=== PATIENT | female | born 1935 | race Caucasian/White ===

== ENCOUNTER → 2020-12-15 | Outpatient (CLI) ==
[2020-12-15 13:17] LABS: BILIRUBIN,URINE NEGATIVE (NEGATIVE); CLARITY,URINE CLEAR; COLOR,URINE YELLOW; GLUCOSE, URINE (UA) NEGATIVE (NEGATIVE); KETONES,URINE NEGATIVE (NEGATIVE); LEUKOCYTE ESTERASE ,URINE TRACE (NEGATIVE); NITRITE,URINE NEGATIVE (NEGATIVE); PROTEIN,URINE NEGATIVE (NEGATIVE)
[2020-12-15 13:26] LABS: BACTERIA,URINE NEGATIVE /HPF; SQUAMOUS EPITHELIAL CELL,UR 0-2 /HPF; WBC,URINE 0-2 /HPF; YEAST,URINE FEW /HPF
== END ==
PROVIDERS: ATTEND Internal Medicine
DX: Z01.89 Encounter for other specified special examinations (principal)
CPT/HCPCS: 81000; 87077; 87088; 87186

== ENCOUNTER 2021-02-15 22:46 | Emergency (ER) | payer MEDICARE ==
[~2021-02-15] VITALS: Ht 157 cm; Wt 102.5 kg
[2021-02-15 23:07] LABS: BASOPHILS % (AUTO) 1 % (0-10); EOSINOPHILS # (AUTO) 0.2 10^3/uL (0.0-0.3); EOSINOPHILS % (AUTO) 3 % (0-10); HEMATOCRIT 30 % (35-52); HEMOGLOBIN 9.5 g/dL (11.5-16.0); LYMPHOCYTES # (AUTO) 4.1 10^3/uL (1.0-4.0); LYMPHOCYTES % (AUTO) 60 % (12-44); MEAN CORPUSCULAR HEMOGLOBIN 34 pg (25-34); MEAN CORPUSCULAR HGB CONC 31 g/dL (32-36); MEAN CORPUSCULAR VOLUME 110 fL (80-99); MEAN PLATELET VOLUME 9.4 fL (9.0-12.2); MONOCYTES # (AUTO) 0.5 10^3/uL (0.0-1.0); MONOCYTES % (AUTO) 7 % (0-12); NEUTROPHILS # (AUTO) 1.9 10^3/uL (1.8-7.8); NEUTROPHILS % (AUTO) 29 % (42-75); PLATELET COUNT 268 10^3/uL (130-400); WHITE BLOOD COUNT 6.7 10^3/uL (4.3-11.0)
[2021-02-15] MEDS ORDERED: fentaNYL INJ 100 MCG/2 ML AMP ONE (23:12)
--- NOTE | 2021-02-15 23:12 | ED Fall/Injury ---
General Stated Complaint: L LEG PAIN Source: patient, EMS Exam Limitations: no limitations (BARB EDWARDS) History of Present Illness Date Seen by Provider: Feb 15, 2021 Time Seen by Provider: 22:45 Initial Comments Pt presents to ED via EMS from [facility] with complaint of L thigh pain. She states that prior to arrival, she was ambulating/closing her blinds, when she felt like someone reached in and broke her L thigh. She was able to lower herself to the floor, denies LOC, denies hitting her head. She was assisted by [facility] staff shortly afterward. She does not take any anti-coagulants. Her pain is 8/10 L mid-thigh, denies radiation. She took a Tylenol3 earlier today for her back pain, and was given Oxycodone 5mg at 2220 by EMS. She had surgery about 2 months ago in November for repair of L distal femur fracture by Dr. Galaviz. Denies chest pain, SOB, N/V, abd pain. Occurred: just prior to arrival Severity: moderate Injuries/Pain Location: lower extremity (L thigh) Context: other (L thigh gave out, nontraumatic ) Loss of Consciousness: no loss of consciousness Modifying Factors: Improves With Pain Medication (Oxycodone at 2220, T3 earlier today) Associated Symptoms (Fall): No Abdominal Pain, No Chest Pain, No Lightheadedness, No Nausea/Vomiting, No Shortness of Air; Trouble Walking; No Vision Changes (BARB EDWARDS STUDENT) Allergies and Home Medications Allergies Coded Allergies: No Known Drug Allergies (Unverified , 02/15/21) Patient Home Medication List Home Medication List Reviewed: Yes (BARB EDWARDS) Review of Systems Review of Systems Constitutional: No chills, No dizziness, No fever Eyes: Denies Blurred Vision, Denies Drainage, Denies Pain Ears, Nose, Mouth, Throat: denies ear pain, denies epistaxis, denies mouth pain Respiratory: No cough, No short of breath Cardiovascular: No chest pain; edema (moderate edema LLE); No palpitations Gastrointestinal: No abdominal pain, No constipation, No diarrhea Genitourinary: No decreased output, No dysuria, No frequency, No hematuria Musculoskeletal: back pain; No joint pain; muscle pain (L mid thigh) Skin: No change in color, No change in hair/nails; lesions (multiple facial sores r/t picking) Psychiatric/Neurological: Denies Headache, Denies Numbness, Denies Paresthesia (BARB EDWARDS STUDENT) All Other Systems Reviewed Negative Unless Noted: Yes (BARB EDWARDS) Physical Exam Vital Signs Vital Signs - First Documented 02/15/21 02/16/21 22:46 01:21 Temp 36.8 Pulse 91 Resp 18 B/P (MAP) 198/121 (146) Pulse Ox 94 O2 Delivery Room Air O2 Flow Rate 3.00 (DENNIS ROSALES) Vital Signs Capillary Refill : (BARB EDWARDS STUDENT) Height, Weight, BMI Height: '" Weight: lbs. oz. kg; BMI Method: General Appearance: mild distress, obese HEENT: PERRL/EOMI, normal ENT inspection, pharynx normal (dry mucosa) Neck: non-tender, full range of motion, supple, normal inspection Cardiovascular: normal peripheral pulses, regular rate, rhythm, no murmur Respiratory: chest non-tender, lungs clear, normal breath sounds, no respiratory distress, no accessory muscle use Peripheral Pulses: 2+ Dorsalis Pedis (R), 2+ Left Dors-Pedis (L), 2+ Radial Pulses (R), 2+ Radial Pulses (L) Gastrointestinal: normal bowel sounds, non tender, soft Rectal: deferred Back: normal inspection, no CVA tenderness, no vertebral tenderness Extremities: other (LLE tender to palpation mid-thigh, moderate swelling/mass to L mid-thigh, moderate swelling to LLE>RLE, pulses +2/4 BLE, sensation intact/equal BLE, motor strength 3/5 BLE) Neurologic/Psychiatric: no motor/sensory deficits, alert, normal mood/affect, oriented x 3 Skin: warm/dry, other (multiple open sores/ulcerations around face) Lymphatic: no adenopathy (BARB EDWARDS STUDENT) [place] Coma Score Best Eye Response: (4) Open Spontaneously Best Verbal Response: (5) Oriented Best Motor Response: (6) Obeys Commands (BARB EDWARDS STUDENT) Progress/Results/Core Measures Results/Orders Lab Results Laboratory Tests Test 02/15/21 23:03 Range/Units White Blood Count 6.7 4.3-11.0 10^3/uL Red Blood Count 2.76 L 3.80-5.11 10^6/uL Hemoglobin 9.5 L 11.5-16.0 g/dL Hematocrit 30 L 35-52 % Mean Corpuscular Volume 110 H 80-99 fL Mean Corpuscular Hemoglobin 34 25-34 pg Mean Corpuscular Hemoglobin Concent 31 L 32-36 g/dL Red Cell Distribution Width 16.6 H 10.0-14.5 % Platelet Count 268 130-400 10^3/uL Mean Platelet Volume 9.4 9.0-12.2 fL Immature Granulocyte % (Auto) 0 % Neutrophils (%) (Auto) 29 L 42-75 % Lymphocytes (%) (Auto) 60 H 12-44 % Monocytes (%) (Auto) 7 0-12 % Eosinophils (%) (Auto) 3 0-10 % Basophils (%) (Auto) 1 0-10 % Neutrophils # (Auto) 1.9 1.8-7.8 10^3/uL Lymphocytes # (Auto) 4.1 H 1.0-4.0 10^3/uL Monocytes # (Auto) 0.5 0.0-1.0 10^3/uL Eosinophils # (Auto) 0.2 0.0-0.3 10^3/uL Basophils # (Auto) 0.0 0.0-0.1 10^3/uL Immature Granulocyte # (Auto) 0.0 0.0-0.1 10^3/uL Sodium Level 136 135-145 MMOL/L Potassium Level 4.5 3.6-5.0 MMOL/L Chloride Level 105 98-107 MMOL/L Carbon Dioxide Level 22 21-32 MMOL/L Anion Gap 9 5-14 MMOL/L Blood Urea Nitrogen 17 7-18 MG/DL Creatinine 1.02 0.60-1.30 MG/DL Estimat Glomerular Filtration Rate 52 BUN/Creatinine Ratio 17 Glucose Level 103 70-105 MG/DL Calcium Level 9.0 8.5-10.1 MG/DL Corrected Calcium 9.4 8.5-10.1 MG/DL Total Bilirubin 0.2 0.1-1.0 MG/DL Aspartate Amino Transf (AST/SGOT) 17 5-34 U/L Alanine Aminotransferase (ALT/SGPT) 16 0-55 U/L Alkaline Phosphatase 182 H 40-136 U/L Total Protein 8.1 6.4-8.2 GM/DL Albumin 3.5 3.2-4.5 GM/DL (DENNIS ROSALES) My Orders Orders - DENNIS ROSALES Chest 1 View, Ap/Pa Only (02/15/21 23:01) Femur, Left, 2 Views (02/15/21 23:01) Cbc With Automated Diff (02/15/21 23:01) Comprehensive Metabolic Panel (02/15/21 23:01) Catheter(Urinary) Insert & Ass 03,15 (02/15/21 23:01) Ekg Tracing (02/15/21:01) Continuous Ekg Monitoring (02/15/21:) Fentanyl Inj (Sublimaze Injection) (02/15/21 23:15) Fentanyl Inj (Sublimaze Injection) (02/15/21 23:12) Lactated Ringers (Lr 1000 Ml Iv Solution (02/16/21 00:07) Fentanyl Inj (Sublimaze Injection) (02/16/21 00:15) Lactated Ringers (Lr 1000 Ml Iv Solution (02/16/21 00:19) Ketamine Syringe (Ketamine Syringe) (02/16/21 00:27) Ns (Ivpb) (Sodium Chloride 0.9% Ivpb Bag (02/16/21 00:27) Ketamine Syringe (Ketamine Syringe) (02/16/21 00:45) Catheter(Urinary) Insert & Ass (02/16/21 03:47) (DENNIS ROSALES) Medications Given in ED (DENNIS ROSALES) Vital Signs/I&O 02/15/21 02/16/21 22:46 01:21 Temp 36.8 36.8 Pulse 91 81 Resp 18 18 B/P (MAP) 198/121 (146) 129/101 (146) Pulse Ox 94 96 O2 Delivery Room Air Nasal Cannula O2 Flow Rate 3.00 (DENNIS ROSALES) Progress Progress Note #1: Time: 23:34 Progress Note I attest that I saw this patient alongside the medical student and agree with his documented history, physical exam and review of systems except as otherwise noted. Plain film of the left femur. Chest x-ray EKG and labs for preop. Suspect she has a fracture of her left femur shaft reaggravated. Because she did not strike her head and states she lowered herself to the floor we will not scan her head and neck. She is not on blood thinners. 50 mcg of fentanyl. Progress Note #2: Time: 00:36 Progress Note Placing Fields catheter in the splint. Patient's oxygen saturations were 90% after the 75 mcg of fentanyl but her pain is not adequately controlled so we are going to give her 25 mg of ketamine and 100 cc of fluids slowly over the next 15 to 30 minutes and see if we can control her pain better between that and the splint. (DENNIS ROSALES) Initial ECG Impression Date: Feb 15, 2021 Initial ECG Impression Time: 23:29 Initial ECG Rate: 77 Initial ECG Rhythm: Normal Sinus Initial ECG Intervals: QT (486) Initial ECG Impression: Nonspecific Changes Initial ECG Comparisson: No Previous ECG Available Comment Left bundle branch block. No clinically relevant ST changes (DENNIS ROSALES) Diagnostic Imaging Diagonstic Imaging: Xray Plain Films/CT/US/NM/MRI: chest Comments Wide heart and mediastinum but no acute pulmonary process. [facility] [place] NAME: LUCRECIA ROBERT [facility] REC#: [id number] PT STATUS: DEP ER : 1935 PHYSICIAN: DENNIS ROSALES MD ADMIT DATE: 02/15/21/ER Signed Date of Exam:02/15/21 CHEST 1 VIEW, AP/PA ONLY INDICATION: Fall and femoral fracture. Single AP view of the chest is obtained. There is no previous study for comparison. Heart size and pulmonary vascularity are at the upper limits of normal. There is air trapping in the lungs bilaterally. Prominent interstitial markings may reflect chronic scarring. There are advanced degenerative changes in the shoulders as well as cervical spine. IMPRESSION: Probable background COPD without acute abnormality seen in the chest. Dictated by: Dictated on workstation # [id number] Dict: 02/16/21 0013 Trans: 02/16/21900 LIBBY [id number] Interpreted by: THOMAS SANCHEZ MD Electronically signed by: THOMAS SANCHEZ MD 02/16/21900 Reviewed: Reviewed by Me Diagonstic Imaging: Xray Plain Films/CT/US/NM/MRI: femur (Left) Comments Acute midshaft fracture involving hardware, displaced, closed [facility] [place] NAME: LUCRECIA ROBERT [facility] REC#: [id number] PT STATUS: DEP ER : 1935 PHYSICIAN: DENNIS ROSALES MD ADMIT DATE: 02/15/21/ER Signed Date of Exam:02/15/21 FEMUR, LEFT, 2 VIEWS INDICATION: Fall with left femur injury AP and lateral views of the left femur are obtained. There is transverse fracture through the midshaft of the left femur. There is significant overriding of fracture fragments. Extensive surgical hardware seen in the distal left femur and at the level of the knee. Hip joint appears to be intact. IMPRESSION: Overriding midshaft femoral fracture. Dictated by: Dictated on workstation # [id number] Dict: 02/16/212 Trans: 02/16/21 [facility] [id number] Interpreted by: THOMAS SANCHEZ MD Electronically signed by: THOMAS SANCHEZ MD 02/16/21900 Reviewed: Reviewed by Me (DENNIS ROSALES) Departure Impression Primary Impression: Fracture of femoral shaft, left, closed Qualified Codes: S72.392S - Other fracture of shaft of left femur, sequela Disposition: XF [facility]-TRM HOSP Condition: Stable Transfer Transfer Reason: Exceeds level of care (No orthopedic surgeon websphere consultant until next week) Time Spoke to Accepting Phy: 00:25 Transfer Progress Notes Discussed the case with Dr. Galaviz at [facility] and he agrees to take the patient on. He will work with the triage team and have them call us back. Discussed the case with Dr. Montesinos, emergency room at [facility] and he agrees to accept the patient in transfer. Transfer Time: 01:23 Transfer Facility: [place], [place] Method of Transfer: EMS (DENNIS ROSALES) Departure-Patient Inst. Referrals: JULIA LLANES MD (PCP) Primary Care Physician BARB EDWARDS STUDENT Feb 15, 2021 23:12 DENNIS ROSALES Feb 15, 2021 23:37
[2021-02-15] MEDS ORDERED: fentaNYL INJ 100 MCG/2 ML AMP IVP ONE (23:15)
[2021-02-15 23:18] LABS: ALBUMIN 3.5 GM/DL (3.2-4.5); POTASSIUM 4.5 MMOL/L (3.6-5.0)
[2021-02-15 23:21] LABS: TOTAL PROTEIN 8.1 GM/DL (6.4-8.2)
[2021-02-15 23:23] LABS: BILIRUBIN,TOTAL 0.2 MG/DL (0.1-1.0)
[2021-02-15 23:24] LABS: CREATININE SERUM 1.02 MG/DL (0.60-1.30)
[2021-02-16] MEDS ORDERED: LACTATED RINGERS 1,000 ML IV STA (00:07)
[2021-02-16] MEDS ORDERED: fentaNYL INJ 100 MCG/2 ML AMP IVP ONE (00:15)
[2021-02-16] MEDS ORDERED: LACTATED RINGERS 0 ML IV ONE (00:19)
[2021-02-16] MEDS ORDERED: KETAMINE SYRINGE 50 MG/5 ML SYRINGE ONE (00:27)
[2021-02-16] MEDS ORDERED: NS (IVPB) 100 ML ONE (00:27)
--- NOTE | 2021-02-16 00:39 | Diagnostic Imaging Report ---
INDICATION: Fall and femoral fracture. Single AP view of the chest is obtained. There is no previous study for comparison. Heart size and pulmonary vascularity are at the upper limits of normal. There is air trapping in the lungs bilaterally. Prominent interstitial markings may reflect chronic scarring. There are advanced degenerative changes in the shoulders as well as cervical spine. IMPRESSION: Probable background COPD without acute abnormality seen in the chest. Dictated by: Dictated on workstation # [id number]
--- NOTE | 2021-02-16 00:39 | Diagnostic Imaging Report ---
INDICATION: Fall with left femur injury AP and lateral views of the left femur are obtained. There is transverse fracture through the midshaft of the left femur. There is significant overriding of fracture fragments. Extensive surgical hardware seen in the distal left femur and at the level of the knee. Hip joint appears to be intact. IMPRESSION: Overriding midshaft femoral fracture. Dictated by: Dictated on workstation # [id number]
[2021-02-16] MEDS ORDERED: KETAMINE SYRINGE 50 MG/5 ML SYRINGE IV ONE (00:45)
[2021-02-16 01:21] VITALS: BP 129/101
== END 2021-02-16 01:22 | disposition short-term general hospital (02) ==
LOC: EDUNIT# 22:46 → ER 22:53
DX: S72.392A Other fracture of shaft of left femur, initial encounter for closed fracture (principal); E66.9 Obesity, unspecified; X58.XXXA Exposure to other specified factors, initial encounter
CPT/HCPCS: 27232; 29505; 36415; 51702; 71045; 73552; 80053; 85025; 93005; 96374; 96375; 96376

== ENCOUNTER → 2021-04-05 | Outpatient (CLI) | payer MEDICARE ==
[~2021-04-05] MED LIST: CATHETER FLUSH 10 ML SYR IV PRN; HOLD METFORMIN - RECEIVED CONTRAST 20 ML VIAL IV SCH; IOHEXOL 350 MG/ML 100 ML (OMNIPAQUE 350) VIAL IV ONE; NS 100 ML (IVPB) BAG IV ONE
--- NOTE | 2021-04-05 12:18 | Diagnostic Imaging Report ---
PROCEDURE: US left lower extremity venous. TECHNIQUE: Multiple real-time grayscale images were obtained over the left lower extremity in various projections. Additional duplex Doppler and color Doppler images were also obtained. INDICATION: Left lower extremity swelling and pain. COMPARISON: None. FINDINGS: Visualized deep and superficial venous system is patent. There is no DVT. IMPRESSION: Negative left lower extremity venous Doppler. Dictated by: Dictated on workstation # [id number]
--- NOTE | 2021-04-05 12:51 | Diagnostic Imaging Report ---
PROCEDURE: CT angiography of the chest with contrast. TECHNIQUE: Multiple contiguous axial images were obtained through the chest after uneventful bolus administration of intravenous contrast. 3D reconstructed CTA MIP acquisitions were also performed. Auto Exposure Controls were utilized during the CT exam to meet ALARA standards for radiation dose reduction. INDICATION: Chest pain, shortness of breath. COMPARISON: None. FINDINGS: There is slight cardiac enlargement without pericardial effusion. There is no lymphadenopathy. The pulmonary arteries and aorta are grossly normal. No embolism is identified. There is no pulmonary infiltrate. Large hiatal hernia is present. Cholelithiasis without cholecystitis is present. Osseous structures are age appropriate. IMPRESSION: 1. No pulmonary embolism or acute aortic pathology. 2. Hiatal hernia. 3. Cholelithiasis. 4. No pulmonary infiltrates. Dictated by: Dictated on workstation # [id number]
== END ==
LOC: RAD 10:45
PROVIDERS: ATTEND Nurse Practitioner Family
DX: K44.9 Diaphragmatic hernia without obstruction or gangrene (principal); K80.20 Calculus of gallbladder without cholecystitis without obstruction; M79.605 Pain in left leg; M79.89 Other specified soft tissue disorders; D64.9 Anemia, unspecified; R79.1 Abnormal coagulation profile
CPT/HCPCS: 71275

== ENCOUNTER → 2021-05-13 | Outpatient (CLI) | payer MEDICARE ==
--- NOTE | 2021-05-13 17:07 | Diagnostic Imaging Report ---
INDICATION: Elevated D-dimer, left-sided pelvic pain, recent femoral fracture and surgical repair. 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 The bilateral common femorals and superficial femoral arteries are patent. Portions of the popliteals are obscured by artifact from the hardware. Below that level they were patent. No aneurysm or pseudoaneurysm. No vascular contrast extravasation. The bilateral common and external iliacs are patent. The lower abdominal aorta is patent. There is no pelvic intra or extraperitoneal hemorrhage. The femoral heads directed into the acetabula. 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 IMPRESSION: No evidence for pelvic or thigh arterial injury. No contrast extravasation. No pelvic intra or extraperitoneal hemorrhage. Dictated by: Dictated on workstation # [id number]
== END ==
LOC: RAD 16:00
PROVIDERS: ATTEND Nurse Practitioner Family
DX: R10.2 Pelvic and perineal pain (principal); S72.92XD Unspecified fracture of left femur, subsequent encounter for closed fracture with routine healing; R79.1 Abnormal coagulation profile; X58.XXXD Exposure to other specified factors, subsequent encounter
CPT/HCPCS: 72191

== ENCOUNTER 2021-12-17 22:10 | Inpatient (IN) | payer MEDICARE ==
[~2021-12-17] VITALS: Ht 154 cm; Wt 121.6 kg
[2021-12-17] MEDS ORDERED: RT-ALBUTEROL SULF 2.5 MG/3 ML PRE-MIX VIAL ONE (22:59)
--- NOTE | 2021-12-17 23:07 | ED Respiratory ---
General Chief Complaint: Respiratory Problems Stated Complaint: FALL History of Present Illness Date Seen by Provider: Dec 17, 2021 Time Seen by Provider: 22:45 Initial Comments Patient is an 86-year-old female who presents to the emergency department today with a chief complaint of altered mental status after fall. Patient lives at [facility] across the street. She is normally up and ambulatory with a walker. She was talking to one of the caregivers and 30 minutes later she was found on the floor. Caregivers at [facility] reports that she was speaking "word salad" and not oriented after her fall. She is not on any blood thinners. She does not have any obvious outward external trauma to her head. On arrival she is very short of breath and wheezy. She is febrile. She is able to state that she is in the hospital and she asks for a rest break. Her speech is clear although she is in moderate respiratory distress. Sats are around 90%. She was placed on BiPAP and had almost immediate improvement in her work of breathing. She does not really answer HPI, review of systems past medical family or social history. This is limited secondary to clinical condition and likely some dementia. Timing/Duration: just prior to arrival Severity: moderate Associated Symptoms: shortness of breath Allergies and Home Medications Allergies Coded Allergies: Penicillins (Verified Allergy, Unknown, 12/18/21) Patient Home Medication List Home Medication List Reviewed: Yes Acetaminophen (Tylenol Extra Strength) 500 Mg Tablet, 500 MG PO 0600,1000,1400,1800, (Reported) Entered as Reported by: TRACI MONTES on 12/18/211113 Last Action: Held Amitriptyline HCl (Amitriptyline HCl) 100 Mg Tablet, 100 MG PO 1700, (Reported) Entered as Reported by: TRACI MONTES on 12/18/211113 Last Action: Converted Ascorbate Calcium (Vitamin C) 500 Mg Tablet, 500 MG PO DAILY, (Reported) Entered as Reported by: TRACI MONTES on 12/18/211113 Last Action: Held Buspirone HCl (Buspirone HCl) 5 Mg Tablet, 5 MG PO TID, (Reported) Entered as Reported by: TRACI MONTES on 12/18/211113 Last Action: Continued Calcium Carbonate/Vitamin D3 (Calcium 600 + Vit D 400 Tablet) 600 Mg Calcium-10 Mcg (400 Unit) Tablet, 1 EACH PO DAILY, (Reported) Entered as Reported by: TRACI MONTES on 12/18/211113 Last Action: Reviewed Cholecalciferol (Vitamin D3) (Vitamin D3) 125 Mcg (5000 Unit) Capsule, 125 MCG PO DAILY, (Reported) Entered as Reported by: TRACI MONTES on 12/18/211113 Last Action: Held Cyclobenzaprine HCl (Cyclobenzaprine HCl) 10 Mg Tablet, 10 MG PO 0800,1700, (Reported) Entered as Reported by: TRACI MONTES on 12/18/211113 Last Action: Continued Docusate Sodium (Docusate Sodium) 100 Mg Capsule, 100 MG PO BID, (Reported) Entered as Reported by: TRACI MONTES on 12/18/211113 Last Action: Continued Docusate Sodium (Docusate Sodium) 100 Mg Capsule, 100 MG PO Q12H PRN for CONSTIPATION-1ST LINE, (Reported) Entered as Reported by: TRACI MONTES on 12/18/211113 Last Action: Continued Donepezil HCl (Donepezil HCl) 10 Mg Tablet, 10 MG PO 1700, (Reported) Entered as Reported by: TRACI MONTES on 12/18/211113 Last Action: Continued Duloxetine HCl (Duloxetine HCl) 60 Mg Capsule.dr, 60 MG PO DAILY, (Reported) Entered as Reported by: TRACI MONTES on 12/18/211113 Last Action: Converted Furosemide (Furosemide) 20 Mg Tablet, 20 MG PO DAILY, (Reported) Entered as Reported by: TRACI MONTES on 12/18/211113 Last Action: Continued Gabapentin (Neurontin) 300 Mg Capsule, 300 MG PO 0800,1700, (Reported) Entered as Reported by: TRACI MONTES on 12/18/211113 Last Action: Continued Lidocaine (Lidocaine 5% Patch) 5 % Adh..patch, 1 EACH TP Q12H PRN for LOWER BACK PAIN, (Reported) Entered as Reported by: TRACI MONTES on 12/18/211113 Last Action: Continued Lisinopril (Lisinopril) 20 Mg Tablet, 20 MG PO DAILY, (Reported) Entered as Reported by: TRACI MONTES on 12/18/211113 Last Action: Held Magnesium Hydroxide (Milk of Magnesia) 2,400 Mg/10 Ml Oral.susp, 30 ML PO DAILY PRN for CONSTIPATION-7TH LINE, (Reported) Entered as Reported by: TRACI MONTES on 12/18/211113 Last Action: Held Magnesium Oxide (Magnesium) 400 Mg Magnesium Tablet, 400 MG PO DAILY, (Reported) Entered as Reported by: TRACI MONTES on 12/18/211113 Last Action: Held Meloxicam (Meloxicam) 15 Mg Tablet, 15 MG PO DAILY, (Reported) Entered as Reported by: TRACI MONTES on 12/18/211113 Last Action: Held Menthol (Biofreeze) 4 % Gel..ml., 1 APPLIC TP Q6H PRN for MUSCLE PAIN, (Reported) Entered as Reported by: TRACI MONTES on 12/18/211113 Last Action: Held Multivitamin with Minerals (One Daily Plus Minerals) 1 Each Tablet, 1 EACH PO DAILY, (Reported) Entered as Reported by: TRACI MONTES on 12/18/211113 Last Action: Held Oxycodone HCl (Oxycodone HCl) 5 Mg Tablet, 5 MG PO Q6H PRN for PAIN-SEVERE (8- 10), (Reported) Entered as Reported by: TRACI MONTES on 12/18/211113 Last Action: Continued Pantoprazole Sodium (Pantoprazole Sodium) 40 Mg Tablet.dr, 40 MG PO DAILY, (Reported) Entered as Reported by: TRACI MONTES on 12/18/211113 Last Action: Continued Potassium Chloride (Klor-Con 8) 8 Meq Tablet.er, 8 MEQ PO DAILY, (Reported) Entered as Reported by: TRACI MONTES on 12/18/211113 Last Action: Held Pramipexole Di-HCl (Pramipexole Dihydrochloride) 0.5 Mg Tablet, 0.5 MG PO 1700, (Reported) Entered as Reported by: TRACI MONTES on 12/18/211113 Last Action: Continued Propranolol HCl (Propranolol HCl) 20 Mg Tablet, 20 MG PO BID, (Reported) Entered as Reported by: TRACI MONTES on 12/18/211113 Last Action: Held Review of Systems Review of Systems Constitutional: see HPI, fever, malaise, weakness Respiratory: short of breath Review of systems difficult secondary to patient's altered mental status/respiratory distress Physical Exam Vital Signs - First Documented 12/17/21 12/17/21 22:10 23:02 Temp 38.2 Pulse 112 Resp 22 B/P (MAP) 164/124 (137) Pulse Ox 100 O2 Delivery Non Rebreather O2 Flow Rate 10.00 FiO2 40 Capillary Refill : Height: '" Weight: lbs. oz. kg; 41.00 BMI Method: General Appearance: WD/WN, moderate distress Eyes: Bilateral Eye Normal Inspection, Bilateral Eye PERRL, Bilateral Eye EOMI HEENT: PERRL/EOMI Neck: normal inspection Respiratory: decreased breath sounds (bases and left greater than right), accessory muscle use, wheezing Cardiovascular: regular rate, rhythm, bradycardia Gastrointestinal: normal bowel sounds, non tender, soft Extremities: normal range of motion, normal inspection Neurologic/Psychiatric: alert Skin: normal color, warm/dry Focused Exam Lactate Level 12/17/21 23:00: Lactic Acid Level 1.35 Time of Focused Exam: 01:00 Respiratory: No Accessory Muscle Use, No Respiratory Distress Cardiovascular: Regular Rate, Rhythm (90's), Normal Peripheral Pulses Capillary Refill: Less Than 3 Seconds Peripheral Pulses: 1+ Radial Pulses (R), 1+ Radial Pulses (L) Skin: normal color, warm/dry Lactic Acid Level Laboratory Tests Test 12/17/21 23:00 Lactic Acid Level 1.35 MMOL/L (0.50-2.00) Within 3hrs of presentation: Admin fluids, Blood cultures prior to ABX's, Focus exam, Lactate level Procedures/Interventions Lumen: triple Central Line Procedure: betadine prep, sterile drapes applied, sterile dressing applied Position: internal jugular (R) Anesthesia: Lidocaine Volume Anesthetic (ccs): 4 Complications: hematoma at site Post Position: sutured, good blood return, position confirmed w/ CXR Progress/Results/Core Measures Suspected Sepsis SIRS Temperature: Pulse: Respiratory Rate: Blood Pressure / Mean: 12/17/21 23:00: Lactic Acid Level 1.35 Laboratory Tests 12/17/21 23:00: INR Comment 1.1 Results/Orders Lab Results Laboratory Tests Test 12/17/21 23:00 12/17/21 23:22 12/17/21 23:30 12/17/21 23:44 Range/Units White Blood Count 11.1 H 4.3-11.0 10^3/uL Red Blood Count 3.05 L 3.80-5.11 10^6/uL Hemoglobin 10.7 L 11.5-16.0 g/dL Hematocrit 33 L 35-52 % Mean Corpuscular Volume 109 H 80-99 fL Mean Corpuscular Hemoglobin 35 H 25-34 pg Mean Corpuscular Hemoglobin Concent 32 32-36 g/dL Red Cell Distribution Width 15.1 H 10.0-14.5 % Platelet Count 290 130-400 10^3/uL Mean Platelet Volume 9.4 9.0-12.2 fL Immature Granulocyte % (Auto) 1 % Neutrophils (%) (Auto) 70 42-75 % Lymphocytes (%) (Auto) 23 12-44 % Monocytes (%) (Auto) 4 0-12 % Eosinophils (%) (Auto) 1 0-10 % Basophils (%) (Auto) 1 0-10 % Neutrophils # (Auto) 7.8 1.8-7.8 10^3/uL Lymphocytes # (Auto) 2.6 1.0-4.0 10^3/uL Monocytes # (Auto) 0.5 0.0-1.0 10^3/uL Eosinophils # (Auto) 0.2 0.0-0.3 10^3/uL Basophils # (Auto) 0.1 0.0-0.1 10^3/uL Immature Granulocyte # (Auto) 0.1 0.0-0.1 10^3/uL Prothrombin Time 14.1 12.2-14.7 SEC INR Comment 1.1 0.8-1.4 Activated Partial Thromboplast Time 27 24-35 SEC Sodium Level 133 L 135-145 MMOL/L Potassium Level 5.0 3.6-5.0 MMOL/L Chloride Level 98 98-107 MMOL/L Carbon Dioxide Level 25 21-32 MMOL/L Anion Gap 10 5-14 MMOL/L Blood Urea Nitrogen 22 H 7-18 MG/DL Creatinine 1.34 H 0.60-1.30 MG/DL Estimat Glomerular Filtration Rate 39 BUN/Creatinine Ratio 16 Glucose Level 120 H 70-105 MG/DL Lactic Acid Level 1.35 0.50-2.00 MMOL/L Calcium Level 9.1 8.5-10.1 MG/DL Corrected Calcium 9.3 8.5-10.1 MG/DL Total Bilirubin 0.3 0.1-1.0 MG/DL Aspartate Amino Transf (AST/SGOT) 24 5-34 U/L Alanine Aminotransferase (ALT/SGPT) 13 0-55 U/L Alkaline Phosphatase 213 H 40-136 U/L B-Type Natriuretic Peptide 252.5 H <100.0 PG/ML Total Protein 9.2 H 6.4-8.2 GM/DL Albumin 3.8 3.2-4.5 GM/DL Blood Gas Puncture Site LEFT RADIAL Blood Gas Patient Temperature 38.2 Arterial Blood pH 7.35 L 7.37-7.43 Arterial Blood Partial Pressure CO2 52 H 35-45 MMHG Arterial Blood Partial Pressure O2 48 L 79-93 MMHG Arterial Blood HCO3 27 23-27 MMOL/L Arterial Blood Total CO2 28.5 21.0-31.0 MMOL/L Arterial Blood Oxygen Saturation 69 L 94-100 % Arterial Blood Base Excess 2.2 -2.5-2.5 MMOL/L Diony Test YES-POS Blood Gas Ventilator Setting NO Blood Gas Inspired Oxygen 40% Urine Color YELLOW Urine Clarity CLEAR Urine pH 6.5 5-9 Urine Specific Jasper 1.015 L 1.016-1.022 Urine Protein TRACE H NEGATIVE Urine Glucose (UA) NEGATIVE NEGATIVE Urine Ketones NEGATIVE NEGATIVE Urine Nitrite NEGATIVE NEGATIVE Urine Bilirubin NEGATIVE NEGATIVE Urine Urobilinogen 0.2 < = 1.0 MG/DL Urine Leukocyte Esterase NEGATIVE NEGATIVE Urine RBC (Auto) NEGATIVE NEGATIVE Urine RBC RARE /HPF Urine WBC NONE /HPF Urine Squamous Epithelial Cells 2-5 /HPF Urine Crystals NONE /LPF Urine Bacteria NEGATIVE /HPF Urine Casts NONE /LPF Urine Mucus NEGATIVE /LPF Urine Culture Indicated CULTURE PENDING SARS-CoV-2 RNA (RT-PCR) Not Detected Not Detecte Micro Results Microbiology 12/17/21 Urine Culture - Final, Complete Gram Pos Mixed Bacterial Gillian 12/17/21 Blood Culture - Preliminary, Resulted No growth 12/17/21 Blood Culture - Preliminary, Resulted No growth My Orders Orders - ELIJAH SHANKS MD Albuterol Pre-Mix Nebs (Rt) (Proventil (12/17/21 22:59) Cbc With Automated Diff (12/17/21 23:03) Comprehensive Metabolic Panel (12/17/21 23:03) Blood Culture (12/17/21 23:03) Sputum Culture (12/17/21 23:03) Urinalysis (12/17/21 23:03) Urine Culture (12/17/21 23:03) Protime With Inr (12/17/21 23:03) Partial Thromboplastin Time (12/17/21 23:03) Chest 1 View, Ap/Pa Only (12/17/21 23:03) Acetaminophen Tablet (Tylenol Tablet) (12/17/21 23:15) Ed Iv/Invasive Line Start (12/17/21 23:03) Ed Iv/Invasive Line Start (12/17/21 23:03) Vital Signs Adult Sepsis Patie Q15M (12/17/21 23:03) O2 (12/17/21 23:03) Remove Rings In Anticipation O (12/17/21:03) Lactic Acid Analyzer (12/17/21 23:03) Bnp Major (12/17/21 23:03) Ekg Tracing (12/17/21 23:03) Covid 19 Inhouse Test (12/17/21 23:04) Isolation Central Supply Req (12/17/21 23:04) Ns Iv 1000 Ml (Sodium Chloride 0.9%) (12/17/21 23:15) Albuterol Pre-Mix Nebs (Rt) (Proventil (12/17/21 23:15) Svn Small Volume Nebulizer (12/17/21 23:07) Acetaminophen Suppository (Tylenol Suppo (12/17/21 23:15) Arterial Blood Gas (12/17/21 23:24) Fields Cath (12/17/21 23:25) Pelvis With Right Hip 2-3views (12/17/21 23:39) Ct Head Wo (12/17/21 23:39) Furosemide Injection (Lasix Injection) (12/18/21 01:15) Cefepime Injection (Maxipime Injection) (12/18/21 01:45) Medications Given in ED Vital Signs/I&O 12/17/21 12/17/21 12/17/21 12/17/21 22:10 22:40 23:02 23:14 Temp 38.2 38.2 Pulse 112 111 Resp 22 30 B/P (MAP) 164/124 (137) Pulse Ox 100 97 93 O2 Delivery Non Rebreather NIV Bilevel O2 Flow Rate 10.00 50.00 FiO2 40 12/17/21 12/18/21 23:49 00:53 Temp 36.2 Pulse 90 B/P (MAP) 120/66 Pulse Ox 99 O2 Delivery Non Rebreather NIV Bilevel O2 Flow Rate 10.00 40.00 Capillary Refill : Progress Note #1: Time: 01:52 Progress Note Patient's heart rate is down with fluids and respiratory support. Labs have been reviewed and are at baseline really not overly concerning. Her lactic acid is less than 2. Her blood pressure has remained stable. She is breathing comfortably on the BiPAP. I am starting her on some cefepime for fever of unknown origin. She has defervesced after the rectal Tylenol. I discussed the case with Dr. Mireles. Patient is a DNR. Progress Note #2: Time: 02:33 Progress Note Patient's blood pressure has trended down - now at 79/50. Will fluid bolus her. granddaughter is in the room and tells me the lasix is a new medication for her in the last week - no h/o CHF in the past. Big swollen legs recently. Patient is awake and talking. She is complaining of her chronic pain. Due to (now) lower BP - will switch to ICU bed. Patient remains a DNR. Will not pursue aggressive measures. Antibiotics just finished. Progress Note #3: Time: 03:21 Progress Note Blood pressure consistent in the 70s 80s. I spoke with the granddaughter who talked to her aunt who is [facility]'s power of chargeback specialist. They wish to pursue pressors at this time until they can get family together and make further decisions on treatment. I have consulted eICU and made them aware of the admission to the ICU. ECG Initial ECG Impression Date: Dec 18, 2021 Initial ECG Impression Time: 23:16 Initial ECG Rate: 95 Initial ECG Rhythm: Normal Sinus Comment Left bundle branch block -pre-existing RI interval 148 QRS 190 QTc 452 No ectopy, no ST segment elevation or depression noted Diagnostic Imaging Diagonstic Imaging: Xray Plain Films/CT/US/NM/MRI: chest Comments Chest x-ray interpreted by me, some increased pulmonary vascularity no obvious patchy infiltrate on my evaluation Diagonstic Imaging: CT Plain Films/CT/US/NM/MRI: head Comments per Stat rad : nothing acute Critical Care Note Critical Care Start Time: 22:45 Stop Time: 02:35 Total Time (minutes) 1 hour critical care time in the evaluation and management of this patient in respiratory distress. Time includes initial evaluation, supplemental oxygen with BiPAP. Review and interpretation of medical record; review and interpretation of labs, imaging, multiple reassessments. Discussion with admitting provider as well as family members. Departure Communication (Admissions) Time/Spoke to Admitting Phy: 01:[address] Mireles Time/Spoke to Consulting Phy: 03:22 discussed with eICU Impression Primary Impression: Acute respiratory failure Qualified Codes: J96.00 - Acute respiratory failure, unspecified whether with hypoxia or hypercapnia Additional Impression: Sepsis Qualified Codes: A41.9 - Sepsis, unspecified organism; R65.20 - Severe sepsis without septic shock; J96.01 - Acute respiratory failure with hypoxia Disposition: ADMITTED INPATIENT Condition: Critical Admissions Decision to Admit Reason: Admit from ER (General) Decision to Admit/Date: Dec 18, 2021 Time/Decision to Admit Time: 01:52 Departure-Patient Inst. Referrals: JULIA LLANES MD (PCP/Family) Primary Care Physician ELIJAH SHANKS MD Dec 17, 2021 23:07
[2021-12-17 23:14] LABS: BASOPHILS # (AUTO) 0.1 10^3/uL (0.0-0.1); BASOPHILS % (AUTO) 1 % (0-10); EOSINOPHILS # (AUTO) 0.2 10^3/uL (0.0-0.3); EOSINOPHILS % (AUTO) 1 % (0-10); HEMATOCRIT 33 % (35-52); HEMOGLOBIN 10.7 g/dL (11.5-16.0); LYMPHOCYTES # (AUTO) 2.6 10^3/uL (1.0-4.0); LYMPHOCYTES % (AUTO) 23 % (12-44); MEAN CORPUSCULAR HEMOGLOBIN 35 pg (25-34); MEAN CORPUSCULAR HGB CONC 32 g/dL (32-36); MEAN CORPUSCULAR VOLUME 109 fL (80-99); MEAN PLATELET VOLUME 9.4 fL (9.0-12.2); MONOCYTES # (AUTO) 0.5 10^3/uL (0.0-1.0); MONOCYTES % (AUTO) 4 % (0-12); NEUTROPHILS # (AUTO) 7.8 10^3/uL (1.8-7.8); NEUTROPHILS % (AUTO) 70 % (42-75); PLATELET COUNT 290 10^3/uL (130-400); WHITE BLOOD COUNT 11.1 10^3/uL (4.3-11.0)
[2021-12-17] MEDS ORDERED: ACETAMINOPHEN 500 MG TAB (TYLENOL) PO PRN (23:15)
[2021-12-17] MEDS ORDERED: RT-ALBUTEROL SULF 2.5 MG/3 ML PRE-MIX VIAL INH ONE (23:15)
[2021-12-17] MEDS ORDERED: NS IV 1000 ML 1,000 ML IV SCH (23:15)
[2021-12-17] MEDS ORDERED: ACETAMINOPHEN 650 MG SUPP (TYLENOL) PR ONE (23:15)
[2021-12-17 23:24] LABS: ALBUMIN 3.8 GM/DL (3.2-4.5)
[2021-12-17 23:26] LABS: CALCIUM 9.1 MG/DL (8.5-10.1); INR 1.1 (0.8-1.4); PROTHROMBIN TIME PATIENT 14.1 SEC (12.2-14.7)
[2021-12-17 23:27] LABS: TOTAL PROTEIN 9.2 GM/DL (6.4-8.2)
[2021-12-17 23:29] LABS: BILIRUBIN,TOTAL 0.3 MG/DL (0.1-1.0)
[2021-12-17 23:29] LABS: ABG BASE EXCESS 2.2 MMOL/L (-2.5-2.5); ABG OXYGEN SATURATION 69 % (94-100); ABG PCO2 52 MMHG (35-45); ABG PH 7.35 (7.37-7.43); ABG PO2 48 MMHG (79-93); ABG TCO2 28.5 MMOL/L (21.0-31.0)
[2021-12-17 23:30] LABS: CREATININE SERUM 1.34 MG/DL (0.60-1.30)
[2021-12-17 23:32] LABS: ALLENS TEST YES-POS; INSPIRED O2 40%; PATIENT TEMP 38.2; VENTILATOR NO
[2021-12-17 23:49] LABS: BILIRUBIN,URINE NEGATIVE (NEGATIVE); CLARITY,URINE CLEAR; COLOR,URINE YELLOW; GLUCOSE, URINE (UA) NEGATIVE (NEGATIVE); KETONES,URINE NEGATIVE (NEGATIVE); LEUKOCYTE ESTERASE ,URINE NEGATIVE (NEGATIVE); NITRITE,URINE NEGATIVE (NEGATIVE); PH,URINE 6.5 (5-9); PROTEIN,URINE TRACE (NEGATIVE)
[2021-12-17 23:55] LABS: BACTERIA,URINE NEGATIVE /HPF; RBC,URINE RARE /HPF
[2021-12-18] MEDS ORDERED: FUROSEMIDE 40 MG/4 ML INJ (LASIX) IVP ONE (01:15)
[2021-12-18] MEDS ORDERED: CEFEPIME INJECTION 1,000 MG in NS (IVPB) 50 ML IV ONE (01:45)
[2021-12-18 02:31] VITALS: BP 90/53
[2021-12-18] MEDS ORDERED: NS IV 500 ML 500 ML IV SCH (02:45)
[2021-12-18] MEDS: NOREPINEPHRINE 8 MG/250 ML 250 ML IV SCH ×3 (04:41→20:12)
[2021-12-18] MEDS ORDERED: ACETAMINOPHEN 650 MG SUPP (TYLENOL) PR PRN (05:30)
[2021-12-18 05:33] VITALS: BP 164/124
[2021-12-18] MEDS ORDERED: RT-ALBUTEROL/IPRATROPIUM 3 ML (DUONEB) VIAL INH PRN (05:45)
[2021-12-18] MEDS: NS IV 1000 ML 1,000 ML IV SCH ×2 (05:51→17:54)
--- NOTE | 2021-12-18 06:00 | Diagnostic Imaging Report ---
PROCEDURE: CT head without contrast. TECHNIQUE: Multiple contiguous axial images were obtained through the brain without the use of intravenous contrast. Auto Exposure Controls were utilized during the CT exam to meet ALARA standards for radiation dose reduction. INDICATION: Altered mental status and fever CT HEAD: CT images of the head were obtained. FINDINGS: Ventricles and sulci are within normal limits for size. There is no intracranial hemorrhage identified. There is no abnormal mass effect or shift of midline structures. IMPRESSION: Unremarkable CT of the head. Dictated by: Dictated on workstation # [id number]
--- NOTE | 2021-12-18 06:08 | Diagnostic Imaging Report ---
INDICATION: Dyspnea. AP view of the chest is obtained with comparison made study of 02/15/2021. FINDINGS: There is continued cardiomegaly. Prominent interstitial markings are again noted with an overall increase in bilateral airspace disease as well. No pneumothorax is seen. There is no definite pleural fluid. There is prominent hiatal hernia. IMPRESSION: Cardiomegaly and pulmonary venous congestion with increasing bilateral pulmonary opacity likely due to pulmonary edema or superimposed pneumonia. Clinical correlation would be useful. Dictated by: Dictated on workstation # [id number]
--- NOTE | 2021-12-18 06:08 | Diagnostic Imaging Report ---
INDICATION: Fall with right hip pain AP view of the pelvis is obtained with coned AP and frog-leg views of right hip. There is marked concentric narrowing of the right hip joint space with associated subchondral sclerosis and cyst formation. There is marginal osteophyte formation. No definite fracture is seen. Surgical findings are present in the lower lumbar region at the proximal left femur. 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 Dictated by: Dictated on workstation # [id number]
--- NOTE | 2021-12-18 07:18 | Diagnostic Imaging Report ---
INDICATION: Central venous catheter placement. Portable AP view of the chest reveals right jugular central venous catheter reaching the upper superior vena cava. There is no pneumothorax. Similar to the x-ray performed earlier in the day there is cardiomegaly and pulmonary venous congestion with bilateral pulmonary opacity which may be due to edema or pneumonitis. IMPRESSION: No evidence of complication related to right jugular central venous catheter placement. Dictated by: Dictated on workstation # [id number]
[2021-12-18] MEDS: RT-ALBUTEROL/IPRATROPIUM 3 ML (DUONEB) VIAL INH SCH ×4 (07:19→18:34)
--- NOTE | 2021-12-18 08:43 | History & Physical-Hospitalist ---
History of Present Illness HPI/Chief Complaint Patient is an 86-year-old female past medical history of hypertension, dementia, neuropathy who presented to the emergency department due to altered mental status after a fall. She is unable to tell me what brought her to the hospital. She was surprised that that she was sick and also seems surprised that she was in the hospital. Per ER note she was talking with the nurse and then 30 minutes later was found down by the staff at her long term. They were concerned that she had "word salad "and decided to bring her in for evaluation. On arrival to the emergency department she was objectively short of breath and was wheezing. She was also found to be febrile. She was placed on BiPAP due to her work of breathing. She was found to have likely pneumonia and was to be admitted to [facility] but after antibiotics became hypotensive and pressors were needed. She was admitted to the ICU. She remains on pressors at this time but reports feeling better and has no complaints. After further discussion though she does endorse a history of hacking cough for the past week. Source: patient Exam Limitations: clinical condition Date Seen 12/18/21 Time Seen by a Provider: 08:00 Attending Physician Julia Llanes MD PCP Admitting Physician: Carrillo Mireles MD Attending Physician: Carrillo Mireles MD Referring Physician Date of Admission Dec 18, 2021 at 01:55 Home Medications & Allergies Home Medications Reviewed patient Home Medication Reconciliation performed by pharmacy medication reconciliations site damage prevention technician and/or nursing. Patients Allergies have been reviewed. Allergies Allergies Coded Allergies Penicillins (Verified Allergy, Unknown, 12/18/21) Past Enfpnzq-Ftdsts-Qbytlj Hx Patient Social History Living Status: Lives at [facility] Employed/Student: retired Smoking Status: Unknown if Ever Smoked Immunizations Up To Date Tetanus Booster (TDap): Unknown Current Status Communicates: Verbally Primary Language: Persian Preferred Spoken Language: Persian Is interpretation needed?: No Past Medical History Hypertension Dementia, Neuropathy Review of Systems Constitutional: No chills; fever; No malaise EENTM: no symptoms reported Respiratory: see HPI, cough Cardiovascular: No chest pain, No edema, No palpitations Gastrointestinal: no symptoms reported Genitourinary: no symptoms reported Musculoskeletal: no symptoms reported Skin: no symptoms reported Psychiatric/Neurological: No Symptoms Reported Physical Exam Physical Exam Vital Signs Vital Signs - First Documented 12/17/21 12/17/21 22:10 23:02 Temp 38.2 Pulse 112 Resp 22 B/P (MAP) 164/124 (137) Pulse Ox 100 O2 Delivery Non Rebreather O2 Flow Rate 10.00 FiO2 40 Capillary Refill : Less Than 3 Seconds Height, Weight, BMI Height: '" Weight: lbs. oz. kg; 51.61 BMI Method: General Appearance: No Apparent Distress, Chronically ill, Obese HEENT: PERRL/EOMI, Moist Mucous Membranes; No Scleral Icterus (L), No Scleral Icterus (R) Neck: Normal Inspection, Supple Respiratory: Lungs Clear, No Accessory Muscle Use, Other (on 3lpm) Cardiovascular: Regular Rate, Rhythm, No JVD, No Murmur Gastrointestinal: Normal Bowel Sounds, Non Tender, Soft Extremity: Normal Capillary Refill, No Calf Tenderness, No Pedal Edema Neurologic/Psychiatric: Alert, Normal Mood/Affect, Other (oriented to person and place, confused to details of hospitalization) Skin: Normal Color, Warm/Dry Results Results/Procedures Labs Laboratory Tests 12/21/21 03:45 12/22/21 04:20 Patient resulted labs reviewed. Imaging: Reviewed Imaging Report Imaging [facility]. [place], [place] NAME: LUCRECIA ROBERT [facility] REC#: [id number] PT STATUS: ADM IN : 1935 PHYSICIAN: ELIJAH SHANKS MD ADMIT DATE: 12/18/21/ICU Signed Date of Exam:12/17/21 CHEST 1 VIEW, AP/PA ONLY INDICATION: Dyspnea. AP view of the chest is obtained with comparison made study of 02/15/2021. FINDINGS: There is continued cardiomegaly. Prominent interstitial markings are again noted with an overall increase in bilateral airspace disease as well. No pneumothorax is seen. There is no definite pleural fluid. There is prominent hiatal hernia. IMPRESSION: Cardiomegaly and pulmonary venous congestion with increasing bilateral pulmonary opacity likely due to pulmonary edema or superimposed pneumonia. Clinical correlation would be useful. Dictated by: Dictated on workstation # [id number] Dict: 12/18/21 0604 Trans: 12/18/21 0647 [id number] Interpreted by: THOMAS SANCHEZ MD Electronically signed by: THOMAS SANCHEZ MD 12/18/21 0647 [facility] [place], [place] NAME: LUCRECIA ROBERT [facility] REC#: [id number] PT STATUS: ADM IN : 1935 PHYSICIAN: ELIJAH SHANKS MD ADMIT DATE: 12/18/21/ICU Signed Date of Exam:12/17/21 CT HEAD WO PROCEDURE: CT head without contrast. TECHNIQUE: Multiple contiguous axial images were obtained through the brain without the use of intravenous contrast. Auto Exposure Controls were utilized during the CT exam to meet ALARA standards for radiation dose reduction. INDICATION: Altered mental status and fever CT HEAD: CT images of the head were obtained. FINDINGS: Ventricles and sulci are within normal limits for size. There is no intracranial hemorrhage identified. There is no abnormal mass effect or shift of midline structures. IMPRESSION: Unremarkable CT of the head. Dictated by: Dictated on workstation # [id number] Dict: 12/18/21 0558 Trans: 12/18/21 0804 LIBBY [id number] Interpreted by: THOMAS SANCHEZ MD Electronically signed by: THOMAS SANCHEZ MD 12/18/21 0804 [facility] [place] [place] NAME: LUCRECIA ROBERT [facility] REC#: [id number] PT STATUS: ADM IN : 1935 PHYSICIAN: ELIJAH SHANKS MD ADMIT DATE: 12/18/21/ICU Signed Date of Exam:12/17/21 PELVIS WITH RIGHT HIP 2-3VIEWS INDICATION: Fall with right hip pain AP view of the pelvis is obtained with coned AP and frog-leg views of right hip. There is marked concentric narrowing of the right hip joint space with associated subchondral sclerosis and cyst formation. There is marginal osteophyte formation. No definite fracture is seen. Surgical findings are present in the lower lumbar region at the proximal left femur. 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 [facility] [place] [place] NAME: LUCRECIA ROBERT [facility] REC#: [id number] PT STATUS: ADM IN : 1935 PHYSICIAN: ELIJAH SHANKS MD ADMIT DATE: 12/18/21/ICU Signed Date of Exam:12/18/21 CHEST 1 VIEW, AP/PA ONLY INDICATION: Central venous catheter placement. Portable AP view of the chest reveals right jugular central venous catheter reaching the upper superior vena cava. There is no pneumothorax. Similar to the x-ray performed earlier in the day there is cardiomegaly and pulmonary venous congestion with bilateral pulmonary opacity which may be due to edema or pneumonitis. IMPRESSION: No evidence of complication related to right jugular central venous catheter placement. Dictated by: Dictated on workstation # [id number] Dict: 12/18/2110 Trans: 12/18/21 0804 CVB [id number] Interpreted by: THOMAS SANCHEZ MD Electronically signed by: THOMAS SANCHEZ MD 12/18/2104 Dictated by: Dictated on workstation # [id number] Dict: 12/18/2106 Trans: 12/18/21 0804 LIBBY [id number] Interpreted by: THOMAS SANCHEZ MD Electronically signed by: THOMAS SANCHEZ MD 12/18/2104 Assessment/Plan Admission Diagnosis Septic Shock Admission Status: Inpatient Order (span 2 midnights) Reason for Inpatient Admission: see below Assessment and Plan Septic Shock due to pneumonia Acute respiratory failure Fever with tachypnea likely superimposed pneumonia on CXR Await cultures Continue Cefepime Still on pressors, wean as able HTN Hold home meds due to shock Neuropathy Dementia Resume home meds when able DVT ppx: Lovenox Diagnosis/Problems Diagnosis/Problems (1) Hypertension Qualifiers: Hypertension type: primary hypertension Qualified Codes: I10 - Essential (primary) hypertension (2) Dementia Qualifiers: Dementia type: unspecified type Dementia behavioral disturbance: without behavioral disturbance Qualified Codes: F03.90 - Unspecified dementia without behavioral disturbance (3) Neuropathy (4) Acute respiratory failure Status: Acute Qualifiers: Respiratory failure complication: unspecified whether with hypoxia or hypercapnia Qualified Codes: J96.00 - Acute respiratory failure, unspecified whether with hypoxia or hypercapnia (5) Sepsis Status: Acute Qualifiers: Sepsis type: sepsis due to unspecified organism Sepsis acute organ dysfunction status: with acute organ dysfunction Severe sepsis acute organ dysfunction type: acute respiratory failure Acute respiratory failure type: with hypoxia Severe sepsis shock status: with septic shock Qualified Codes: A41.9 - Sepsis, unspecified organism; R65.21 - Severe sepsis with septic shock; J96.01 - Acute respiratory failure with hypoxia Copy Copies To 1: JULIA LLANES MD, KATELYN M MD Dec 18, 2021 08:43
--- NOTE | 2021-12-18 09:45 | Tele-ICU Consult ---
History of Present Illness History of Present Illness Date Seen by Provider: Dec 18, 2021 Time Seen by Provider: 09:44 Date of Admission 12/17/21 History of Present Illness Available chart/vitals/labs/images reviewed. Video assessment done using telemetry ICU camera, rest of exam as per RN. Discussion with the RN, exam as per RN. Hospital course She is a 86-year-old female with past medical history of morbid obesity status post left hip repair, lumbar fusion, apparently normally walks with the walker and lives in [facility]. Apparently caregivers at [facility] found her on the floor with a decrease in her mental status. When they woke her up she was speaking word salad but she was not oriented. She was brought to the emergency room where she was found to have a borderline oxygen saturation and subsequently placed on BiPAP ventilation and apparently her work of breathing markedly improved. There was a concern for pulmonary congestion hence she was given a dose of Lasix. She was admitted to medical floor where she became hypotensive hence she is transferred to the intensive care unit. Currently she is off the BiPAP and on nasal cannula receiving IV Levophed. She has a CVC catheter placed today. She is awake alert but not oriented. Normally she is AAA will x2. I have discussed with patient's daughter today via video visit. Allergies and Home Medications Allergies Coded Allergies: Penicillins (Verified Allergy, Unknown, 12/18/21) Home Medications Acetaminophen 500 Mg Tablet, 500 MG PO 0600,1000,1400,1800, (Reported) Amitriptyline HCl 100 Mg Tablet, 100 MG PO 1700, (Reported) Ascorbate Calcium 500 Mg Tablet, 500 MG PO DAILY, (Reported) Buspirone HCl 5 Mg Tablet, 5 MG PO TID, (Reported) Calcium Carbonate/Vitamin D3 600 Mg Calcium-10 Mcg (400 Unit) Tablet, 1 EACH PO DAILY, (Reported) Cholecalciferol (Vitamin D3) 125 Mcg (5000 Unit) Capsule, 125 MCG PO DAILY, (Reported) Cyclobenzaprine HCl 10 Mg Tablet, 10 MG PO 0800,1700, (Reported) Docusate Sodium 100 Mg Capsule, 100 MG PO BID, (Reported) Docusate Sodium 100 Mg Capsule, 100 MG PO Q12H PRN for CONSTIPATION-1ST LINE, (Reported) Donepezil HCl 10 Mg Tablet, 10 MG PO 1700, (Reported) Duloxetine HCl 60 Mg Capsule.dr 60 MG PO DAILY, (Reported) Furosemide 20 Mg Tablet, 20 MG PO DAILY, (Reported) ONLY TAKE FOR 14 DAYS- FIRST DOSE 12-10-2021 Gabapentin 300 Mg Capsule, 300 MG PO 0800,1700, (Reported) Lidocaine 5 % Adh..patch, 1 EACH TP Q12H PRN for LOWER BACK PAIN, (Reported) APPLY TO LOWER BACK Lisinopril 20 Mg Tablet, 20 MG PO DAILY, (Reported) HOLD FOR BP <100/60 , PULSE <60 Magnesium Hydroxide 2,400 Mg/10 Ml Oral.susp, 30 ML PO DAILY PRN for CONSTIPATION-7TH LINE, (Reported) Magnesium Oxide 400 Mg Magnesium Tablet, 400 MG PO DAILY, (Reported) Meloxicam 15 Mg Tablet, 15 MG PO DAILY, (Reported) Menthol 4 % Gel..ml., 1 APPLIC TP Q6H PRN for MUSCLE PAIN, (Reported) APPLY TO RIGHT HIP/BUTTOCK Multivitamin with Minerals 1 Each Tablet, 1 EACH PO DAILY, (Reported) Oxycodone HCl 5 Mg Tablet, 5 MG PO Q6H PRN for PAIN-SEVERE (8-10), (Reported) Pantoprazole Sodium 40 Mg Tablet.dr, 40 MG PO DAILY, (Reported) Potassium Chloride 8 Meq Tablet.er, 8 MEQ PO DAILY, (Reported) ONLY TAKE FOR 14 DAYS- FIRST DOSE 12-10-2021 Pramipexole Di-HCl 0.5 Mg Tablet, 0.5 MG PO 1700, (Reported) Propranolol HCl 20 Mg Tablet, 20 MG PO BID, (Reported) HOLD IF BP <100/60, PULSE <60 Past Medical/Social/Family Hx Patient Social History Living Status: Lives at [facility] Employed/Student: retired Smoking Status: Unknown if Ever Smoked Immunizations Up To Date Tetanus Booster (TDap): Unknown Current Status Communicates: Verbally Primary Language: Yemeni Preferred Spoken Language: Yemeni Is interpretation needed?: No Past Medical History 1. fracture left hip s/p repair. 2. lumbar vertebral fusion with lot of hardware. 3. right hip arthritis 4. Morbid obesity Review of Systems Constitutional: see HPI, other (MODERATE DISTRESS) Other ROS PER RN Focused Exam Lactate Level 12/17/21 23:00: Lactic Acid Level 1.35 Height, Weight, BMI Height: '" Weight: lbs. oz. kg; 51.61 BMI Method: Time of Focused Exam: 01:00 Exam Exam Patient acknowledged, consented, and participated in this virtual visit which was conducted using real time audio/video Vital Signs Date Time Temp Pulse Resp B/P (MAP) Pulse Ox O2 Delivery O2 Flow Rate FiO2 12/18/21 07:19 97 Nasal Cannula 3.00 12/18/21 06:30 97 28 103/49 96 Nasal Cannula 3.00 12/18/21 06:21 37.5 12/18/21 06:15 102 27 122/71 97 Nasal Cannula 3.00 12/18/21 06:00 105 20 125/60 96 Nasal Cannula 3.00 12/18/21 05:45 105 20 116/86 89 Nasal Cannula 3.00 12/18/21 05:33 38.2 112 100 100 12/18/21 05:30 107 14 125/75 96 Nasal Cannula 3.00 12/18/21 05:25 109 12/18/21 05:20 38.3 109 28 127/76 90 Nasal Cannula 3.00 12/18/21 05:20 90 Nasal Cannula 3.00 12/18/21 04:43 36.2 80 17 93/71 100 NIV Bilevel 40.00 12/18/21 04:41 80 93/71 12/18/21 02:31 82 23 98 40.00 12/18/21 00:53 36.2 90 120/66 99 NIV Bilevel 40.00 12/17/21 23:49 Non Rebreather 10.00 12/17/21 23:14 38.2 12/17/21 23:02 93 NIV Bilevel 40 12/17/21 22:40 111 30 97 50.00 12/17/21 22:10 38.2 112 22 164/124 (137) 100 Non Rebreather 10.00 I & O 12/18/21 07:00 Intake Total 1600 ml Output Total 400 ml Balance 1200 ml Height & Weight Height: '" Weight: lbs. oz. kg; 51.61 BMI Method: General Appearance: No Apparent Distress, Chronically ill, Obese HEENT: PERRL/EOMI, Moist Mucous Membranes; No Scleral Icterus (L), No Scleral Icterus (R) Neck: Normal Inspection, Supple Respiratory: Lungs Clear, No Accessory Muscle Use, Other (on 3lpm) Cardiovascular: Regular Rate, Rhythm, No JVD, No Murmur Capillary Refill: Less Than 3 Seconds Peripheral Pulses: 1+ Radial Pulses (R), 1+ Radial Pulses (L) Gastrointestinal: normal bowel sounds, non tender, soft Extremity: Normal Capillary Refill, No Calf Tenderness, No Pedal Edema Neurologic/Psychiatric: Alert, Normal Mood/Affect, Other (oriented to person and place, confused to details of hospitalization) Skin: Normal Color, Warm/Dry Other comments PE PER RN Results Lab Laboratory Tests 12/17/21 23:00 Assessment/Plan Assessment/Plan 1. Possible sepsis with altered mental status 2. Hypotension probably due to sepsis source of sepsis probably the pneumonia 3. Morbid obesity contributing to her respiratory distress 4. Acute hypoxic respiratory failure secondary to pneumonia and sepsis requiring BiPAP ventilation. 5. Anxiety disorder. 6. Super morbid obesity with underlying osteoarthritis causing unsteady gait. Recommendations 1. Continue IV fluids and Levophed 2. BiPAP ventilation for comfort and decrease and work of breathing 3. IV antibiotics per primary care physician 4. DVT prophylaxis 5. We will give him morphine 2 mg IV as needed for anxiety while she is on BiPAP ventilation. 6. Continue monitor her cultures and reevaluate for need for antibiotic therapy 7. Discussed with the patient daughter and RT as well as ICU nurse. 8. We will hold off any IV Lasix as she does seems to be having volume deficit. Critical Care: Critically Ill Patient Time spent with patient (mins): 45 YOAN KEE MD Dec 18, 2021 09:45
[2021-12-18] MEDS: CEFEPIME 1,000 MG/NS 50 ML IVPB IV SCH ×4 (09:48→16:42)
[2021-12-18] MEDS: ENOXAPARIN 60 MG/0.6 ML (LOVENOX) SYR SQ SCH ×2 (09:48→22:56)
[2021-12-18] MEDS ORDERED: MELO15TA39 PO (11:14)
[2021-12-18] MEDS ORDERED: MAGN400T39 PO (11:14)
[2021-12-18] MEDS ORDERED: MENT118G TP (11:14)
[2021-12-18] MEDS ORDERED: DULO60CA59 PO (11:14)
[2021-12-18] MEDS ORDERED: MULT-422 PO (11:14)
[2021-12-18] MEDS ORDERED: GABA300C PO (11:14)
[2021-12-18] MEDS ORDERED: LISI20TA26 PO (11:14)
[2021-12-18] MEDS ORDERED: POTA8TAB64 PO (11:14)
[2021-12-18] MEDS ORDERED: LIDO700A45 TP (11:14)
[2021-12-18] MEDS ORDERED: CALC-1026 PO (11:14)
[2021-12-18] MEDS ORDERED: FURO20TA4 PO (11:14)
[2021-12-18] MEDS ORDERED: ASCO-262 PO (11:14)
[2021-12-18] MEDS ORDERED: CHOL500050 PO (11:14)
[2021-12-18] MEDS ORDERED: AMIT100T2 PO (11:14)
[2021-12-18] MEDS ORDERED: PANT40TA52 PO (11:14)
[2021-12-18] MEDS ORDERED: MOM10U PO (11:14)
[2021-12-18] MEDS ORDERED: BUSP5TAB59 PO (11:14)
[2021-12-18] MEDS ORDERED: PRAM0.5T9 PO (11:14)
[2021-12-18] MEDS ORDERED: ACET-2267 PO (11:14)
[2021-12-18] MEDS ORDERED: CYCL10TA25 PO (11:14)
[2021-12-18] MEDS ORDERED: DONE10TA41 PO (11:14)
[2021-12-18] MEDS ORDERED: PROP20TA5 PO (11:14)
[2021-12-18] MEDS ORDERED: OXYC5TAB PO (11:14)
[2021-12-18] MEDS ORDERED: DOCU100C37 PO ×2 (11:14)
[2021-12-18] MEDS: ACETAMINOPHEN 500 MG TAB (TYLENOL) PO PRN ×2 (11:14→15:22)
[2021-12-18] MEDS: morphine INJ 4 MG/ML 1 ML (VIAL/SYRINGE) IVP PRN ×2 (11:53→16:05)
[2021-12-18] MEDS ORDERED: DOCUSATE SODIUM 100 MG (COLACE) CAP PO PRN (15:45)
[2021-12-18] MEDS ORDERED: LIDOCAINE 4% (SALONPAS) PATCH TP PRN (15:45)
[2021-12-18] MEDS ORDERED: LIDOCAINE PATCH REMOVAL TP PRN (16:15)
[2021-12-18] MEDS: DexMEDEtomidine 250 ML DRIP 250 ML IV SCH (16:37)
[2021-12-18] MEDS ORDERED: RX-CYCLOBENZAPRINE 10 MG (FLEXERIL) TAB PPK#3 PO SCH (17:00)
[2021-12-18] MEDS ORDERED: NON-FORMULARY MEDICATION 1 EA EA (Amitriptyline HCl 100 MG) PO SCH (17:00)
[2021-12-18] MEDS: CYCLOBENZAPRINE 10 MG (FLEXERIL) TAB PO SCH (17:45)
[2021-12-18] MEDS: PRAMIPEXOLE 0.5 MG TAB (MIRAPEX) PO SCH (17:55)
[2021-12-18] MEDS: DONEPEZIL 10 MG (ARICEPT) TAB PO SCH (17:56)
[2021-12-18] MEDS: AMITRIPTYLINE 25 MG (ELAVIL) TAB PO SCH (17:56)
[2021-12-18] MEDS: GABAPENTIN 300 MG (NEURONTIN) CAP PO SCH (17:56)
[2021-12-18] MEDS: DOCUSATE SODIUM 100 MG (COLACE) CAP PO SCH (20:22)
[2021-12-18] MEDS: busPIRone 5 MG (BUSPAR) TAB PO SCH (20:22)
[2021-12-19] MEDS: CEFEPIME 1,000 MG/NS 50 ML IVPB IV SCH ×6 (02:13→18:02)
[2021-12-19] MEDS: DexMEDEtomidine 250 ML DRIP 250 ML IV SCH (02:14)
[2021-12-19 04:53] LABS: BASOPHILS # (AUTO) 0.1 10^3/uL (0.0-0.1); BASOPHILS % (AUTO) 0 % (0-10); EOSINOPHILS # (AUTO) 0.1 10^3/uL (0.0-0.3); EOSINOPHILS % (AUTO) 0 % (0-10); HEMATOCRIT 28 % (35-52); LYMPHOCYTES % (AUTO) 18 % (12-44); MEAN CORPUSCULAR HEMOGLOBIN 35 pg (25-34); MEAN CORPUSCULAR HGB CONC 32 g/dL (32-36); MEAN CORPUSCULAR VOLUME 108 fL (80-99); MEAN PLATELET VOLUME 9.7 fL (9.0-12.2); MONOCYTES # (AUTO) 0.9 10^3/uL (0.0-1.0); MONOCYTES % (AUTO) 5 % (0-12); NEUTROPHILS # (AUTO) 12.9 10^3/uL (1.8-7.8); NEUTROPHILS % (AUTO) 75 % (42-75); PLATELET COUNT 194 10^3/uL (130-400); WHITE BLOOD COUNT 17.1 10^3/uL (4.3-11.0)
[2021-12-19 05:19] LABS: ALBUMIN 2.7 GM/DL (3.2-4.5); POTASSIUM 4.6 MMOL/L (3.6-5.0)
[2021-12-19 05:20] LABS: CALCIUM 8.1 MG/DL (8.5-10.1)
[2021-12-19 05:23] LABS: BILIRUBIN,TOTAL 0.5 MG/DL (0.1-1.0)
[2021-12-19 05:25] LABS: CREATININE SERUM 1.27 MG/DL (0.60-1.30); PHOSPHORUS 2.4 MG/DL (2.3-4.7)
[2021-12-19 05:28] LABS: MAGNESIUM 1.6 MG/DL (1.6-2.4)
[2021-12-19 05:30] LABS: ANISOCYTOSIS SLIGHT; BAND NEUTROPHILS 19 %; BASOPHILS % (MANUAL) 0 %; EOSINOPHILS % (MANUAL) 0 %; LYMPHOCYTES % (MANUAL) 24 %; MONOCYTES % (MANUAL) 4 %; NEUTROPHILS % (MANUAL) 51 %; REACTIVE LYMPHOCYTES 2 %
[2021-12-19 06:01] LABS: ABG BASE EXCESS -1.9 MMOL/L (-2.5-2.5); ABG OXYGEN SATURATION 99 % (94-100); ABG PCO2 42 MMHG (35-45); ABG PH 7.35 (7.37-7.43); ABG PO2 94 MMHG (79-93); ABG TCO2 24.2 MMOL/L (21.0-31.0)
[2021-12-19 06:02] LABS: ALLENS TEST YES-POS; INSPIRED O2 30%; PATIENT TEMP 36.8; VENTILATOR NO
[2021-12-19] MEDS: NS IV 1000 ML 1,000 ML IV SCH ×2 (06:03→20:54)
[2021-12-19] MEDS: ACETAMINOPHEN 500 MG TAB (TYLENOL) PO PRN (06:27)
--- NOTE | 2021-12-19 08:13 | Diagnostic Imaging Report ---
INDICATION: Respiratory distress. Comparison with 12/18/2021. FINDINGS: Cardiomegaly with bilateral interstitial infiltrates and pulmonary venous congestion again noted. No pneumothorax or pleural effusion. Central catheter on the right unchanged. IMPRESSION: Findings consistent with congestive failure without significant overall change since previous exam. Dictated by: Dictated on workstation # [id number]
[2021-12-19] MEDS: RT-ALBUTEROL/IPRATROPIUM 3 ML (DUONEB) VIAL INH SCH ×4 (08:34→19:15)
[2021-12-19] MEDS ORDERED: NON-FORMULARY MEDICATION 1 EA EA (Duloxetine HCl 60 MG) PO SCH (09:00)
--- NOTE | 2021-12-19 09:50 | Progress Note - Hospitalist ---
Subjective HPI/CC On Admission Date Seen by Provider: Dec 19, 2021 Patient is an 86-year-old female past medical history of hypertension, dementia, neuropathy who presented to the emergency department due to altered mental status after a fall. She is unable to tell me what brought her to the hospital. She was surprised that that she was sick and also seems surprised that she was in the hospital. Per ER note she was talking with the nurse and then 30 minutes later was found down by the staff at her correction. They were concerned that she had "word salad "and decided to bring her in for evaluation. On arrival to the emergency department she was objectively short of breath and was wheezing. She was also found to be febrile. She was placed on BiPAP due to her work of breathing. She was found to have likely pneumonia and was to be admitted to [facility] but after antibiotics became hypotensive and pressors were needed. She was admitted to the ICU. She remains on pressors at this time but reports feeling better and has no complaints. After further discussion though she does endorse a history of hacking cough for the past week. Subjective/Events-last exam Pt currently on BiPAP. Seems agitated. Trying to take BiPAP off. States she has a wedding to go to tomorrow. Unsure if this is true. RN at bedside and states pt still on pressors and precedex was added for BiPAP tolerance. Focused Exam Lactate Level Time of Focused Exam: 01:00 Objective Exam Vital Signs Vital Signs Date Time Temp Pulse Resp B/P (MAP) Pulse Ox O2 Delivery O2 Flow Rate FiO2 12/22/21 09:00 117 32 84/51 97 Nasal Cannula 2.00 12/22/21 08:00 36.0 12/22/21 08:00 28 Capillary Refill : Less Than 3 Seconds General Appearance: Anxious, Chronically ill, Obese Respiratory: Decreased Breath Sounds, Other (on BiPAP) Cardiovascular: Regular Rate, Rhythm, No Murmur Gastrointestinal: Normal Bowel Sounds, Soft Neurologic/Psychiatric: Alert Results/Procedures Lab Laboratory Tests 12/22/21 04:20 Patient resulted labs reviewed. Imaging: Reviewed Imaging Report Assessment/Plan Assessment and Plan Assess & Plan/Chief Complaint Septic Shock due to pneumonia Acute respiratory failure Afebrile x24 hours likely superimposed pneumonia on CXR NGTD on cultures Continue Cefepime Still on pressors, wean as able HTN Hold home meds due to shock Neuropathy Dementia Anxiety Continue home meds when able DVT ppx: Lovenox Critical Care Critically Ill Patient Diagnosis/Problems Diagnosis/Problems (1) Hypertension Qualifiers: Hypertension type: primary hypertension Qualified Codes: I10 - Essential (primary) hypertension (2) Dementia Qualifiers: Dementia type: unspecified type Dementia behavioral disturbance: without behavioral disturbance Qualified Codes: F03.90 - Unspecified dementia without behavioral disturbance (3) Neuropathy (4) Acute respiratory failure Status: Acute Qualifiers: Respiratory failure complication: unspecified whether with hypoxia or hypercapnia Qualified Codes: J96.00 - Acute respiratory failure, unspecified whether with hypoxia or hypercapnia (5) Sepsis Status: Acute Qualifiers: Sepsis type: sepsis due to unspecified organism Sepsis acute organ dysfunction status: with acute organ dysfunction Severe sepsis acute organ dysfunction type: acute respiratory failure Acute respiratory failure type: with hypoxia Severe sepsis shock status: with septic shock Qualified Codes: A41.9 - Sepsis, unspecified organism; R65.21 - Severe sepsis with septic shock; J96.01 - Acute respiratory failure with hypoxia SHIRA VEGA MD Dec 19, 2021 09:50
[2021-12-19] MEDS: FUROSEMIDE 20 MG (LASIX) TAB PO SCH (10:00)
[2021-12-19] MEDS: DULoxetine 30 MG (CYMBALTA) CAP PO SCH (10:22)
[2021-12-19] MEDS: DOCUSATE SODIUM 100 MG (COLACE) CAP PO SCH ×2 (10:23→20:54)
[2021-12-19] MEDS: PANTOPRAZOLE 40 MG (PROTONIX) TAB PO SCH (10:23)
[2021-12-19] MEDS: CYCLOBENZAPRINE 10 MG (FLEXERIL) TAB PO SCH ×2 (10:23→18:02)
[2021-12-19] MEDS: busPIRone 5 MG (BUSPAR) TAB PO SCH ×3 (10:23→20:54)
[2021-12-19] MEDS: GABAPENTIN 300 MG (NEURONTIN) CAP PO SCH ×2 (10:23→18:03)
[2021-12-19] MEDS: ENOXAPARIN 60 MG/0.6 ML (LOVENOX) SYR SQ SCH ×2 (10:23→20:54)
--- NOTE | 2021-12-19 13:04 | Tele-ICU Progress Note ---
Subjective Date Seen by a Provider: Dec 19, 2021 Time Seen by a Provider: 13:04 Subjective/Events-last exam (Tele-ICU Physician , Progress Note ) Available chart/ vitals / labs / Images reviewed Video assessment done using teleICU camera, rest of exam as per RN Discussed with RN , EXAM PER RN Events overnight : Afebrile FiO2 - NC I/O = positive Drips: OFF LEVO <, OFF PRECEDX hemodynamically stable A/P Assessment/Plan 1. Possible sepsis with altered mental status 2. Hypotension resolved , OFF pressors 3. Morbid obesity contributing to her respiratory distress 4. Acute hypoxic respiratory failure secondary to pneumonia and sepsis , OFF BiPAP ventilation. 5. Anxiety disorder., OFF precedex 6. Super morbid obesity with underlying osteoarthritis causing unsteady gait. Recommendations 1. Continue IV fluids 2. BiPAP ventilation prn for WOB 3. IV antibiotics 4. lovenox 60 q12 Plans in collaboration with bedside consultants and IM MDs. Discussed with RN to reach out if any questions or concerns A total of 22 minutes of critical care time was devoted to this patient today, required to treat and/or prevent further deterioration of critical care condition ( as above) . Sepsis Event Evaluation Height, Weight, BMI Height: '" Weight: lbs. oz. kg; 51.61 BMI Method: Focused Exam Lactate Level 12/17/21 23:00: Lactic Acid Level 1.35 Time of Focused Exam: 01:00 Exam Exam Patient acknowledged, consented, and participated in this virtual visit which was conducted using real time audio/video Vital Signs Date Time Temp Pulse Resp B/P (MAP) Pulse Ox O2 Delivery O2 Flow Rate FiO2 12/19/21 11:42 36.5 12/19/21 11:00 91 20 97/47 99 NIV Bilevel 30.00 12/19/21 10:00 109 17 140/80 97 NIV Bilevel 30.00 12/19/21 09:00 73 20 83/45 99 NIV Bilevel 30.00 12/19/21 08:31 81 17 99 30.00 12/19/21 08:00 87 20 117/81 99 NIV Bilevel 30.00 12/19/21 07:45 36.9 12/19/21 07:00 86 12/19/21 07:00 82 20 104/47 99 NIV Bilevel 30.00 12/19/21 06:00 89 21 125/89 99 NIV Bilevel 30.00 12/19/21 05:00 84 19 121/51 99 NIV Bilevel 30.00 12/19/21 04:00 NIV Bilevel 30 12/19/21 04:00 36.5 12/19/21 04:00 86 19 123/54 99 NIV Bilevel 30.00 12/19/21 03:00 81 20 118/76 98 NIV Bilevel 30.00 12/19/21 02:37 85 17 100 30.00 12/19/21 02:14 86 109/50 12/19/21 02:00 90 20 127/62 99 NIV Bilevel 30.00 12/19/21 01:00 89 12/19/21 01:00 89 19 113/98 99 NIV Bilevel 30.00 12/19/21 00:00 86 19 109/50 99 NIV Bilevel 30.00 12/18/21 23:59 NIV Bilevel 30 12/18/21 23:30 36.9 12/18/21 23:00 90 21 108/50 99 NIV Bilevel 30.00 12/18/21 22:36 87 21 100 30.00 12/18/21 22:00 87 23 110/56 100 NIV Bilevel 30.00 12/18/21 21:00 89 21 98/54 99 NIV Bilevel 30.00 12/18/21 20:12 93 121/52 12/18/21 20:00 92 18 113/70 99 NIV Bilevel 30.00 12/18/21 20:00 NIV Bilevel 30 12/18/21 19:08 37.2 NIV Bilevel 30.00 12/18/21 19:00 93 19 99/59 100 NIV Bilevel 30.00 12/18/21 19:00 93 12/18/21 18:34 98 20 100 30.00 12/18/21 18:02 NIV Bilevel 30.00 12/18/21 18:00 103 20 121/52 97 Nasal Cannula 3.00 12/18/21 17:15 NIV Bilevel 30 12/18/21 17:00 101 107/57 97 Nasal Cannula 3.00 12/18/21 16:37 112 129/65 12/18/21 16:00 37.3 NIV Bilevel 12/18/21 16:00 112 32 129/65 94 Nasal Cannula 3.00 12/18/21 16:00 93 NIV Bilevel 12/18/21 15:00 97 39 113/66 99 Nasal Cannula 3.00 12/18/21 14:54 96 21 100 30.00 12/18/21 14:00 93 27 122/64 100 Nasal Cannula 3.00 12/18/21 13:07 92 I & O 12/19/21 06:59 Intake Total 2150 ml Output Total 1525 ml Balance 625 ml Height & Weight Height: '" Weight: lbs. oz. kg; 51.61 BMI Method: General Appearance: Anxious, Chronically ill, Obese HEENT: PERRL/EOMI, Moist Mucous Membranes; No Scleral Icterus (L), No Scleral Icterus (R) Neck: Normal Inspection, Supple Respiratory: Decreased Breath Sounds, Other (on BiPAP) Cardiovascular: Regular Rate, Rhythm, No Murmur Capillary Refill: Less Than 3 Seconds Peripheral Pulses: 1+ Radial Pulses (R), 1+ Radial Pulses (L) Gastrointestinal: normal bowel sounds, non tender, soft Extremity: Normal Capillary Refill, No Calf Tenderness, No Pedal Edema Neurologic/Psychiatric: Alert Skin: Normal Color, Warm/Dry Results Lab Laboratory Tests 12/17/21 23:00 12/19/21 04:45 Assessment/Plan Assessment/Plan 1 RAMY TANNER MD Dec 19, 2021 13:04
[2021-12-19] MEDS ORDERED: MAGNESIUM 1 GM/100 ML IVPB 100 ML IV ONE (13:10)
[2021-12-19] MEDS: MAGNESIUM 1 GM/100 ML IVPB 100 ML IV SCH ×2 (13:11→13:12)
[2021-12-19] MEDS: AMITRIPTYLINE 25 MG (ELAVIL) TAB PO SCH (18:02)
[2021-12-19] MEDS: DONEPEZIL 10 MG (ARICEPT) TAB PO SCH (18:03)
[2021-12-19] MEDS: PRAMIPEXOLE 0.5 MG TAB (MIRAPEX) PO SCH (18:03)
[2021-12-19] MEDS: NOREPINEPHRINE 8 MG/250 ML 250 ML IV SCH (20:54)
[2021-12-20] MEDS: NS IV 1000 ML 1,000 ML IV SCH ×2 (01:35→15:12)
[2021-12-20] MEDS: CEFEPIME 1,000 MG/NS 50 ML IVPB IV SCH ×6 (02:36→17:59)
[2021-12-20 04:15] LABS: BASOPHILS % (AUTO) 0 % (0-10); EOSINOPHILS % (AUTO) 0 % (0-10); HEMATOCRIT 25 % (35-52); LYMPHOCYTES % (AUTO) 21 % (12-44); MEAN CORPUSCULAR HEMOGLOBIN 35 pg (25-34); MEAN CORPUSCULAR HGB CONC 32 g/dL (32-36); MEAN CORPUSCULAR VOLUME 109 fL (80-99); MEAN PLATELET VOLUME 9.8 fL (9.0-12.2); MONOCYTES # (AUTO) 0.6 10^3/uL (0.0-1.0); MONOCYTES % (AUTO) 4 % (0-12); NEUTROPHILS # (AUTO) 10.7 10^3/uL (1.8-7.8); NEUTROPHILS % (AUTO) 75 % (42-75); PLATELET COUNT 174 10^3/uL (130-400); WHITE BLOOD COUNT 14.3 10^3/uL (4.3-11.0)
[2021-12-20 04:25] LABS: ALBUMIN 2.5 GM/DL (3.2-4.5)
[2021-12-20 04:26] LABS: POTASSIUM 4.4 MMOL/L (3.6-5.0)
[2021-12-20 04:27] LABS: CALCIUM 8.3 MG/DL (8.5-10.1)
[2021-12-20 04:28] LABS: TOTAL PROTEIN 6.6 GM/DL (6.4-8.2)
[2021-12-20 04:30] LABS: BILIRUBIN,TOTAL 0.6 MG/DL (0.1-1.0)
[2021-12-20 04:31] LABS: PHOSPHORUS 2.4 MG/DL (2.3-4.7)
[2021-12-20 04:32] LABS: CREATININE SERUM 1.13 MG/DL (0.60-1.30)
[2021-12-20] MEDS: KCL 20 MEQ TAB (K-DUR) PO SCH (05:26)
[2021-12-20] MEDS: MAGNESIUM 1 GM/100 ML IVPB 100 ML IV SCH (05:26)
[2021-12-20] MEDS: POTASSIUM CL 10MEQ/50ML IVPB 50 ML IV SCH (05:26)
[2021-12-20] MEDS: NOREPINEPHRINE 8 MG/250 ML 250 ML IV SCH ×2 (05:27→16:34)
[2021-12-20] MEDS: RT-ALBUTEROL/IPRATROPIUM 3 ML (DUONEB) VIAL INH SCH ×4 (07:10→19:00)
--- NOTE | 2021-12-20 07:31 | Tele-ICU Progress Note ---
Subjective Date Seen by a Provider: Dec 20, 2021 Time Seen by a Provider: 07:31 Subjective/Events-last exam Available chart/vitals/labs/images reviewed. Video assessment done using telemetry ICU camera, rest of exam as per RN. Discussion with the RN, exam as per RN. Hospital course Patient today is awake alert and oriented x2 as her baseline. Her Levophed has been stopped. Her pain is being managed with oxycodone which is helping. Blood pressure improved to 119/68 without vasopressors. No fever present so far cul tures are negative. Review of Systems ROS PER RN Sepsis Event Evaluation Height, Weight, BMI Height: '" Weight: lbs. oz. kg; 51.61 BMI Method: Focused Exam Lactate Level 12/17/21 23:00: Lactic Acid Level 1.35 Time of Focused Exam: 01:00 Exam Exam Patient acknowledged, consented, and participated in this virtual visit which was conducted using real time audio/video Vital Signs Date Time Temp Pulse Resp B/P (MAP) Pulse Ox O2 Delivery O2 Flow Rate FiO2 12/20/21 07:10 100 Nasal Cannula 2.00 12/20/21 06:00 86 25 93/43 100 Nasal Cannula 2.00 12/20/21 05:00 87 22 103/51 100 Nasal Cannula 2.00 12/20/21 04:00 Nasal Cannula 2.00 12/20/21 04:00 87 20 123/53 99 Nasal Cannula 2.00 12/20/21 03:00 36.2 Nasal Cannula 2.00 12/20/21 03:00 88 13 117/49 99 Nasal Cannula 2.00 12/20/21 02:57 98 Nasal Cannula 2.00 12/20/21 02:00 89 14 109/46 98 Nasal Cannula 2.00 12/20/21 01:00 91 13 117/59 99 Nasal Cannula 2.00 12/20/21 01:00 91 12/20/21 00:06 Nasal Cannula 2.00 12/20/21 00:00 93 14 91/48 99 Nasal Cannula 2.00 12/19/21 23:00 36.4 Nasal Cannula 2.00 12/19/21 23:00 96 14 123/50 99 Nasal Cannula 2.00 12/19/21 22:00 93 20 103/44 100 Nasal Cannula 2.00 12/19/21 21:40 Nasal Cannula 2.00 12/19/21 21:17 NIV Bilevel 30.00 12/19/21 21:00 100 15 121/76 99 Nasal Cannula 2.00 12/19/21 20:00 101 19 106/93 99 Nasal Cannula 2.00 12/19/21 19:54 Nasal Cannula 2.00 12/19/21 19:15 100 Nasal Cannula 4.00 12/19/21 19:00 107 17 130/60 9 Nasal Cannula 2.00 12/19/21 19:00 36.0 Nasal Cannula 2.00 12/19/21 19:00 107 12/19/21 18:00 106 21 134/74 97 Nasal Cannula 3.00 12/19/21 17:00 106 22 125/97 98 Nasal Cannula 3.00 12/19/21 16:00 Nasal Cannula 3.00 12/19/21 16:00 137 20 131/77 98 Nasal Cannula 3.00 12/19/21 16:00 36.1 Nasal Cannula 3.00 12/19/21 15:14 100 Nasal Cannula 3.00 12/19/21 15:00 87 20 115/52 98 NIV Bilevel 30.00 12/19/21 14:00 92 19 116/91 99 NIV Bilevel 30.00 12/19/21 13:00 89 18 109/54 100 NIV Bilevel 30.00 12/19/21 13:00 90 12/19/21 12:00 Nasal Cannula 3.00 12/19/21 12:00 84 20 100/68 99 NIV Bilevel 30.00 12/19/21 11:42 36.5 12/19/21 11:00 91 20 97/47 99 NIV Bilevel 30.00 12/19/21 10:00 109 17 140/80 97 NIV Bilevel 30.00 12/19/21 09:00 73 20 83/45 99 NIV Bilevel 30.00 12/19/21 08:31 81 17 99 30.00 12/19/21 08:00 NIV Bilevel 30 12/19/21 08:00 87 20 117/81 99 NIV Bilevel 30.00 12/19/21 07:45 36.9 I & O 12/20/21 07:00 Intake Total 2450 ml Output Total 2475 ml Balance -25 ml Height & Weight Height: '" Weight: lbs. oz. kg; 51.61 BMI Method: General Appearance: Anxious, Chronically ill, Obese HEENT: PERRL/EOMI, Moist Mucous Membranes; No Scleral Icterus (L), No Scleral Icterus (R) Neck: Normal Inspection, Supple Respiratory: Decreased Breath Sounds, Other (on BiPAP) Cardiovascular: Regular Rate, Rhythm, No Murmur Capillary Refill: Less Than 3 Seconds Peripheral Pulses: 1+ Radial Pulses (R), 1+ Radial Pulses (L) Gastrointestinal: normal bowel sounds, non tender, soft Extremity: Normal Capillary Refill, No Calf Tenderness, No Pedal Edema Neurologic/Psychiatric: Alert Skin: Normal Color, Warm/Dry Other comments PE PER RN Results Lab Laboratory Tests 12/19/21 04:45 12/20/21 04:05 Assessment/Plan Assessment/Plan 1. Possible sepsis with altered mental status improved 2. Hypotension resolved , OFF pressors 3. Morbid obesity contributing to her respiratory distress 4. Acute hypoxic respiratory failure secondary to pneumonia and sepsis , OFF BiPAP ventilation. 5. Anxiety disorder., OFF precedex 6. Super morbid obesity with underlying osteoarthritis causing unsteady gait. Recommendations 1. Continue IV fluids 2. oxygenate with n/c 3. IV antibiotics 4. lovenox 60 q12 5. suggest physical therapy. Critical Care: Critically Ill Patient Time spent with patient (mins): 25 YOAN KEE MD Dec 20, 2021 07:31
[2021-12-20] MEDS: DOCUSATE SODIUM 100 MG (COLACE) CAP PO SCH ×2 (09:25→20:13)
[2021-12-20] MEDS: FUROSEMIDE 20 MG (LASIX) TAB PO SCH (09:25)
[2021-12-20] MEDS: PANTOPRAZOLE 40 MG (PROTONIX) TAB PO SCH (09:25)
[2021-12-20] MEDS: DULoxetine 30 MG (CYMBALTA) CAP PO SCH (09:25)
[2021-12-20] MEDS: CYCLOBENZAPRINE 10 MG (FLEXERIL) TAB PO SCH ×2 (09:25→17:59)
[2021-12-20] MEDS: busPIRone 5 MG (BUSPAR) TAB PO SCH ×3 (09:25→20:13)
[2021-12-20] MEDS: GABAPENTIN 300 MG (NEURONTIN) CAP PO SCH ×2 (09:25→17:18)
[2021-12-20] MEDS: ENOXAPARIN 60 MG/0.6 ML (LOVENOX) SYR SQ SCH ×2 (09:26→20:13)
--- NOTE | 2021-12-20 12:19 | Progress Note - Hospitalist ---
Subjective HPI/CC On Admission Date Seen by Provider: Dec 20, 2021 Patient is an 86-year-old female past medical history of hypertension, dementia, neuropathy who presented to the emergency department due to altered mental status after a fall. She is unable to tell me what brought her to the hospital. She was surprised that that she was sick and also seems surprised that she was in the hospital. Per ER note she was talking with the nurse and then 30 minutes later was found down by the staff at her senior care. They were concerned that she had "word salad "and decided to bring her in for evaluation. On arrival to the emergency department she was objectively short of breath and was wheezing. She was also found to be febrile. She was placed on BiPAP due to her work of breathing. She was found to have likely pneumonia and was to be admitted to [facility] but after antibiotics became hypotensive and pressors were needed. She was admitted to the ICU. She remains on pressors at this time but reports feeling better and has no complaints. After further discussion though she does endorse a history of hacking cough for the past week. Subjective/Events-last exam Pt reports feeling much better today. Off BiPAP. Off pressors since 3am today. No complaints. Discussed with RN who has no concerns either. Focused Exam Lactate Level Time of Focused Exam: 01:00 Objective Exam Vital Signs Vital Signs Date Time Temp Pulse Resp B/P (MAP) Pulse Ox O2 Delivery O2 Flow Rate FiO2 12/22/21 09:00 117 32 84/51 97 Nasal Cannula 2.00 12/22/21 08:00 36.0 12/22/21 08:00 28 Capillary Refill : Less Than 3 Seconds General Appearance: No Apparent Distress, Chronically ill, Obese Respiratory: Lungs Clear, No Respiratory Distress Cardiovascular: Regular Rate, Rhythm, No Murmur Gastrointestinal: Normal Bowel Sounds, Non Tender, Soft Extremity: No Calf Tenderness, No Pedal Edema Neurologic/Psychiatric: Alert, Oriented x3 (to major details) Results/Procedures Lab Laboratory Tests 12/22/21 04:20 Patient resulted labs reviewed. Imaging: Reviewed Imaging Report Assessment/Plan Assessment and Plan Assess & Plan/Chief Complaint Septic Shock due to pneumonia Acute respiratory failure Afebrile x24 hours likely superimposed pneumonia on CXR NGTD on cultures Continue Cefepime Off pressors since early today HTN Hold home meds due hypotension Neuropathy Dementia Anxiety Continue home meds DVT ppx: Lovenox Critical Care Critically Ill Patient Diagnosis/Problems Diagnosis/Problems (1) Hypertension Qualifiers: Hypertension type: primary hypertension Qualified Codes: I10 - Essential (primary) hypertension (2) Dementia Qualifiers: Dementia type: unspecified type Dementia behavioral disturbance: without behavioral disturbance Qualified Codes: F03.90 - Unspecified dementia without behavioral disturbance (3) Neuropathy (4) Acute respiratory failure Status: Acute Qualifiers: Respiratory failure complication: unspecified whether with hypoxia or hypercapnia Qualified Codes: J96.00 - Acute respiratory failure, unspecified whether with hypoxia or hypercapnia (5) Sepsis Status: Acute Qualifiers: Sepsis type: sepsis due to unspecified organism Sepsis acute organ dysfunction status: with acute organ dysfunction Severe sepsis acute organ dysfunction type: acute respiratory failure Acute respiratory failure type: with hypoxia Severe sepsis shock status: with septic shock Qualified Codes: A41.9 - Sepsis, unspecified organism; R65.21 - Severe sepsis with septic shock; J96.01 - Acute respiratory failure with hypoxia SHIRA VEGA MD Dec 20, 2021 12:19
--- NOTE | 2021-12-20 14:19 | Physical Therapy Progress Note ---
Therapy Progress Note Patient currently too lethargic to actively participate with PT. Will attempt later today or in a.m. NANCY DOYLE PT Dec 20, 2021 14:19
[2021-12-20] MEDS: ACETAMINOPHEN 500 MG TAB (TYLENOL) PO PRN (14:48)
[2021-12-20] MEDS: PRAMIPEXOLE 0.5 MG TAB (MIRAPEX) PO SCH (17:18)
[2021-12-20] MEDS: DONEPEZIL 10 MG (ARICEPT) TAB PO SCH (18:00)
[2021-12-20] MEDS: AMITRIPTYLINE 25 MG (ELAVIL) TAB PO SCH (18:00)
--- NOTE | 2021-12-21 01:20 | Tele-ICU Progress Note ---
Progress Note TeleICU Called by bedside because nursing noted 2 brief "seconds" long episodes of sinus tachycardia up to 150, which spontaneously resolved during sleep. Pt's BP has been stable otherwise. Per videocamera, pt is sleeping , BP 122/77 sats 99% HR 93 RR 19 Originally admitted 12/17 with pneumonia, became hypotensive and initially required pressors now discontinued. On cefepime. Reviewing labs - note Hgb 10.7 on admission 12/17 was 8.0 on 12/20 . Will monitor at present and follow AM labs pending. Focused Exam Height, Weight, BMI Height: '" Weight: lbs. oz. kg; 51.61 BMI Method: Time of Focused Exam: 01:00 ORLIN MARSH DO Dec 21, 2021 01:20
[2021-12-21] MEDS: NOREPINEPHRINE 8 MG/250 ML 250 ML IV SCH ×3 (03:36→18:06)
[2021-12-21] MEDS: CEFEPIME 1,000 MG/NS 50 ML IVPB IV SCH ×6 (03:36→20:07)
[2021-12-21 03:53] LABS: BASOPHILS % (AUTO) 0 % (0-10); EOSINOPHILS # (AUTO) 0.1 10^3/uL (0.0-0.3); EOSINOPHILS % (AUTO) 0 % (0-10); HEMATOCRIT 26 % (35-52); HEMOGLOBIN 8.1 g/dL (11.5-16.0); LYMPHOCYTES # (AUTO) 2.6 10^3/uL (1.0-4.0); LYMPHOCYTES % (AUTO) 18 % (12-44); MEAN CORPUSCULAR HEMOGLOBIN 35 pg (25-34); MEAN CORPUSCULAR HGB CONC 32 g/dL (32-36); MEAN CORPUSCULAR VOLUME 110 fL (80-99); MEAN PLATELET VOLUME 9.8 fL (9.0-12.2); MONOCYTES # (AUTO) 0.7 10^3/uL (0.0-1.0); MONOCYTES % (AUTO) 5 % (0-12); NEUTROPHILS # (AUTO) 10.9 10^3/uL (1.8-7.8); NEUTROPHILS % (AUTO) 76 % (42-75); PLATELET COUNT 187 10^3/uL (130-400); WHITE BLOOD COUNT 14.3 10^3/uL (4.3-11.0)
[2021-12-21 04:14] LABS: ALBUMIN 2.6 GM/DL (3.2-4.5); POTASSIUM 4.5 MMOL/L (3.6-5.0)
[2021-12-21 04:15] LABS: CALCIUM 8.8 MG/DL (8.5-10.1)
[2021-12-21 04:18] LABS: BILIRUBIN,TOTAL 0.5 MG/DL (0.1-1.0)
[2021-12-21 04:20] LABS: CREATININE SERUM 1.1 MG/DL (0.60-1.30); PHOSPHORUS 2.4 MG/DL (2.3-4.7)
[2021-12-21 04:23] LABS: MAGNESIUM 1.9 MG/DL (1.6-2.4)
[2021-12-21] MEDS: KCL 20 MEQ TAB (K-DUR) PO SCH (04:45)
[2021-12-21] MEDS: POTASSIUM CL 10MEQ/50ML IVPB 50 ML IV SCH (04:45)
[2021-12-21] MEDS: MAGNESIUM 1 GM/100 ML IVPB 100 ML IV SCH (04:45)
[2021-12-21] MEDS: RT-ALBUTEROL/IPRATROPIUM 3 ML (DUONEB) VIAL INH SCH ×4 (06:55→18:29)
[2021-12-21] MEDS: CYCLOBENZAPRINE 10 MG (FLEXERIL) TAB PO SCH ×2 (08:15→19:55)
[2021-12-21] MEDS: GABAPENTIN 300 MG (NEURONTIN) CAP PO SCH ×2 (08:16→19:55)
[2021-12-21] MEDS: DULoxetine 30 MG (CYMBALTA) CAP PO SCH (08:16)
[2021-12-21] MEDS: busPIRone 5 MG (BUSPAR) TAB PO SCH ×3 (08:16→20:07)
[2021-12-21] MEDS: DOCUSATE SODIUM 100 MG (COLACE) CAP PO SCH ×2 (08:16→20:07)
[2021-12-21] MEDS: FUROSEMIDE 20 MG (LASIX) TAB PO SCH (08:16)
[2021-12-21] MEDS: PANTOPRAZOLE 40 MG (PROTONIX) TAB PO SCH (08:16)
--- NOTE | 2021-12-21 09:02 | Tele-ICU Progress Note ---
Progress Note video rounds completed 86 y/o kristan admited with hypoxemic resp failure and sepsis Started on antibiotics and levophed to support pressure She is DNR This am she is sleeping in bed HR 120-130 prob a fib BP 124/74 PLAN: continue antibiotics Focused Exam Height, Weight, BMI Height: '" Weight: lbs. oz. kg; 51.61 BMI Method: Time of Focused Exam: 01:00 Labs Laboratory Tests 12/21/21 03:45 Results Results/Procedures Lab Laboratory Tests 12/20/21 04:05 12/21/21 03:45 Results Labs Labs Laboratory Tests 12/21/21 03:45: White Blood Count 14.3H, Red Blood Count 2.32L, Hemoglobin 8.1L, Hematocrit 26L, Mean Corpuscular Volume 110H, Mean Corpuscular Hemoglobin 35H, Mean Corpuscular Hemoglobin Concent 32, Red Cell Distribution Width 15.9H, Platelet Count 187, Mean Platelet Volume 9.8, Immature Granulocyte % (Auto) 1, Neutrophils (%) (Auto) 76H, Lymphocytes (%) (Auto) 18, Monocytes (%) (Auto) 5, Eosinophils (%) (Auto) 0, Basophils (%) (Auto) 0, Neutrophils # (Auto) 10.9H, Lymphocytes # (Auto) 2.6, Monocytes # (Auto) 0.7, Eosinophils # (Auto) 0.1, Basophils # (Auto) 0.0, Immature Granulocyte # (Auto) 0.1, Sodium Level 134L, Potassium Level 4.5, Chloride Level 106, Carbon Dioxide Level 20L, Anion Gap 8, Blood Urea Nitrogen 25H, Creatinine 1.10, Estimat Glomerular Filtration Rate 49, BUN/Creatinine Ratio 23, Glucose Level 98, Calcium Level 8.8, Corrected Calcium 9.9, Phosphorus Level 2.4, Magnesium Level 1.9, Total Bilirubin 0.5, Aspartate Amino Transf (AST /SGOT) 15, Alanine Aminotransferase (ALT/SGPT) 12, Alkaline Phosphatase 123, Total Protein 7.0, Albumin 2.6L Microbiology 12/18/21 MRSA Screen - Final, Complete 12/17/21 Urine Culture - Final, Complete Gram Pos Mixed Bacterial Gillian 12/17/21 Blood Culture - Preliminary, Resulted No growth YUSUF PATRICK MD Dec 21, 2021 09:02
--- NOTE | 2021-12-21 09:11 | Physical Therapy Evaluation ---
PT Evaluation-General Medical Diagnosis Admission Date Dec 18, 2021 at 01:55 Medical Diagnosis: HTN, Dementia, Fall, AMS Onset Date: Dec 17, 2021 Therapy Diagnosis Therapy Diagnosis: Gait deficit, strength deficit Precautions Precautions/Isolations: Aspiration, Fall Prevention, Standard Precautions Weight Bear Status Right Lower Extremity: Right Weight Bearing/Tolerated Left Lower Extremity: Left Weight Bearing/Tolerated Referral Physician: Dr. Colon Reason for Referral: Evaluation/Treatment Medical History Reviewed History: Yes Social History Home: Senior Living Entry Into Home: Level Entry Prior Prior Level of Function SCALE: Activities may be completed with or without assistive devices. 7-Oxizahcyik-tqaiyfd completes the activity by him/herself with no assistance from a helper. 5-Set-up or Clean-up Assistance-helper sets up or cleans up; patient completes activity. [place] assists only prior to or following the activity. 4-Supervision or Touching Assistance-helper provides verbal cues and/or touching/steadying and/or contact guard assistance as patient completes activity. Assistance may be provided throughout the activity or intermittently. 3-Partial/Moderate Assistance-helper does LESS THAN HALF the effort. [place] lifts, holds or supports trunk or limbs, but provides less than half the effort. 2-Substantial/Maximal Assistance-helper does MORE THAN HALF the effort. [place] lifts or holds trunk or limbs and provides more than half the effort. 6-Zdivdxuxw-urnuqh does ALL the effort. Patient does none of the effort to complete the activity. Or, the assistance of 2 or more helpers is required for the patient to complete the activity. If activity was not attempted, code reason: 7-Patient Refused. 9-Not Applicable-not attempted and the patient did not perform the activity before the current illness, exacerbation or injury. 10-Not Attempted due to Environmental Limitations-(lack of equipment, weather restraints, etc.). 88-Not Attempted due to Medical Conditions or Safety Concerns. Bed Mobility: 3 Transfers (B,C,W/C): 3 Gait: 3 Indoor Mobility (Ambulation): Needed Some Help Prior Devices Use: Walker Per nurse, granddaughter reports that the patient has been only able to SPT bed to/from chair with assistance. Has not been able to ambulate recently. PT Evaluation-Current Subjective Patient in bed upon PT arrival, nods head in agreement to working with this PT. Patient responds to verbal and tactile stimuli, however does not respond appropriately to questions. Will not open her eyes and only participates less than 25%. Objective Patient Orientation: Person Attachments: Oxygen, Fields Catheter, IV ROM/Strength ROM Lower Extremities Significantly limited in all planes with PROM and resists/ yells out with all Left LE motions and most Right LE motions. Strength Lower Extremities Unable to assess due to patient cognition and willingness to participate. Transfers Roll Left to Right (QC): 1 Sit to Lying (QC): 1 Lying to Sitting/Side of Bed(Q: 1 Gait Does the Patient Walk?: No and Walking Goal IS indicated Balance Sitting Static: Poor Sitting Dynamic: Poor Assessment/Needs Patient tolerated treatment poorly. She did respond minimally to verbal and tactile stimuli, however not appropriately and did not follow commands. Patient required total assistance for all bed mobility and max A to maintain sitting at edge of bed. Patient O2 sats declined to 73% while sitting, rapidly, therefore patient was returned to supine in the bed. Patient in bed post treatment with all needs met, nursing notified, call light in reach and O2 sats increased to 92%. Rehab Potential: Poor PT Longterm Goals Longterm Goals PT Longterm Goals Time Frame: Jan 11, 2022 Roll Left & Right (QC): 3 Sit to Lying (QC): 3 Lying-Sitting on Side/Bed(QC): 3 Sit to Stand (QC): 3 Chair/Rgk-jg-Fvabv Xfer(QC): 3 PT Plan Problem List Problem List: Activity Tolerance, Functional Strength, Safety, Balance, Transfer, Bed Mobility, ROM Treatment/Plan Treatment Plan: Continue Plan of Care Treatment Plan: Bed Mobility, Education, Functional Activity Ramiro, Functional Strength, Group Therapy, Safety, Therapeutic Exercise, Transfers Treatment Duration: Jan 18, 2022 Frequency: 5 times per week Estimated Hrs Per Day: .25 hour per day Patient and/or Family Agrees t: Yes Safety Risks/Education Patient Education: Transfer Techniques Teaching Recipient: Patient Teaching Methods: Demonstration, Discussion Response to Teaching: Reinforcement Needed Time/GCodes Time In: 840 Time Out: 900 Total Billed Treatment Time: 20 Total Billed Treatment Visit, JULIA DAVIS PT Dec 21, 2021 09:11
[2021-12-21] MEDS: dilTIAZem DRIP PRE-MIX 125 ML IV SCH ×2 (09:15→13:25)
--- NOTE | 2021-12-21 09:21 | Progress Note - Hospitalist ---
Subjective HPI/CC On Admission Date Seen by Provider: Dec 21, 2021 Patient is an 86-year-old female past medical history of hypertension, dementia, neuropathy who presented to the emergency department due to altered mental status after a fall. She is unable to tell me what brought her to the hospital. She was surprised that that she was sick and also seems surprised that she was in the hospital. Per ER note she was talking with the nurse and then 30 minutes later was found down by the staff at her group home. They were concerned that she had "word salad "and decided to bring her in for evaluation. On arrival to the emergency department she was objectively short of breath and was wheezing. She was also found to be febrile. She was placed on BiPAP due to her work of breathing. She was found to have likely pneumonia and was to be admitted to [facility] but after antibiotics became hypotensive and pressors were needed. She was admitted to the ICU. She remains on pressors at this time but reports feeling better and has no complaints. After further discussion though she does endorse a history of hacking cough for the past week. Subjective/Events-last exam Pt reports feeling better. No complaints. Shortly after I left room RN called about tachycardia. EKG revealed new onset a fib with rates in the 130s. I did get a chance to speak with daughter today and provided update. Focused Exam Time of Focused Exam: 01:00 Objective Exam Vital Signs Vital Signs Date Time Temp Pulse Resp B/P (MAP) Pulse Ox O2 Delivery O2 Flow Rate FiO2 12/22/21 09:00 117 32 84/51 97 Nasal Cannula 2.00 12/22/21 08:00 36.0 12/22/21 08:00 28 Capillary Refill : Less Than 3 Seconds General Appearance: No Apparent Distress, Chronically ill, Obese Respiratory: Lungs Clear, No Accessory Muscle Use Cardiovascular: Regular Rate, Rhythm, No Murmur Gastrointestinal: Normal Bowel Sounds, Non Tender, Soft Genital/Rectal: Other (catheter in place) Neurologic/Psychiatric: Alert, Oriented x3 (to major details only) Results/Procedures Lab Laboratory Tests 12/22/21 04:20 Patient resulted labs reviewed. Imaging: Reviewed Imaging Report Assessment/Plan Assessment and Plan Assess & Plan/Chief Complaint A-fib with RVR New onset Cardizem gtt ordered Discussed with Dr Faustin who recommends echo as all Lovenox for stroke ppx Echo ordered Septic Shock due to pneumonia Acute respiratory failure NGTD on cultures Continue Cefepime Off pressors Doing much better from sepsis point of view HTN BP well controlled Neuropathy Dementia Anxiety fibromyalgia Continue home meds DVT ppx: Lovenox Critical Care Critically Ill Patient Diagnosis/Problems Diagnosis/Problems (1) Hypertension Qualifiers: Hypertension type: primary hypertension Qualified Codes: I10 - Essential (primary) hypertension (2) Dementia Qualifiers: Dementia type: unspecified type Dementia behavioral disturbance: without behavioral disturbance Qualified Codes: F03.90 - Unspecified dementia without behavioral disturbance (3) Neuropathy (4) Acute respiratory failure Status: Acute Qualifiers: Respiratory failure complication: unspecified whether with hypoxia or hypercapnia Qualified Codes: J96.00 - Acute respiratory failure, unspecified whether with hypoxia or hypercapnia (5) Sepsis Status: Acute Qualifiers: Sepsis type: sepsis due to unspecified organism Sepsis acute organ dysfunction status: with acute organ dysfunction Severe sepsis acute organ dysfunction type: acute respiratory failure Acute respiratory failure type: with hypoxia Severe sepsis shock status: with septic shock Qualified Codes: A41.9 - Sepsis, unspecified organism; R65.21 - Severe sepsis with septic shock; J96.01 - Acute respiratory failure with hypoxia SHIRA VEGA MD Dec 21, 2021 09:21
[2021-12-21] MEDS ORDERED: meTOprolol 5 MG/5 ML (LOPRESSOR) VIAL IV NR (09:30)
[2021-12-21] MEDS ORDERED: ENOXAPARIN 120 MG/0.8 ML (LOVENOX) SQ SCH ×2 (11:00→23:00)
--- NOTE | 2021-12-21 11:09 | Consultation-Cardiology ---
HPI-Cardiology Cardiology Consultation: Date of Consultation 12/21/21 Date of Admission 12/17/21 Attending Physician Mello Meza MD Admitting Physician Admitting Physician: Carrillo Mireles MD Attending Physician: Carrillo Mireles MD Consulting Physician LUCERO WHITE JR, MD HPI: Time Seen by a Provider: 11:04 Chief Complaint: REASON FOR CONSULTATION: Atrial fibrillation. I had the pleasure of seeing Xiao in the intensive care unit at [facility] in [place], [place] today. I obtained the majority of her history from the medical record and her nurse due to the patient's dementia. She was admitted to the hospital a few days ago with pneumonia complicated by septic shock that required a short course of vasoactive medications. These have now been weaned off. She had been improving but this morning developed tachycardia and then went into atrial fibrillation with a rapid ventricular rate. The hospitalist started her on diltiazem infusion and increased her dose of enoxaparin. When I saw the patient, she was denied chest pain, dyspnea, or palpitations. She knows her name and that she lives in [place] but that is about all she could tell me. She told me she cannot remember what town she lives in. I was not able to obtain any additional history from the patient. Because of the atrial fibrillation, a cardiology consultation was requested. Certain portions of this document may have been dictated utilizing voice recognition technology. Inherent to this technology, typographical and grammatical errors may exist. As much as I am diligent to identify and correct these mistakes, some errors may remain in the document. Review of Systems-Cardiology Review of Systems Other comments Unable to obtain due to dementia. GPD-Ogplkx-Fbtogx Hx Patient Social History Living Status: Lives at [facility] Employed/Student: retired Smoking Status: Unknown if Ever Smoked Have you traveled recently?: No Past Medical History PMH As described under Assessment. Family Medical History Family Medical History: Unable to obtain due to dementia. Allergies and Home Medications Allergies Coded Allergies: Penicillins (Verified Allergy, Unknown, 12/18/21) Patient Home Medication List Home Medication List Reviewed: Yes Acetaminophen (Tylenol Extra Strength) 500 Mg Tablet, 500 MG PO 0600,1000,1400,1800, (Reported) Entered as Reported by: TRACI MONTES on 12/18/21 1114 Last Action: Held Amitriptyline HCl (Amitriptyline HCl) 100 Mg Tablet, 100 MG PO 1700, (Reported) Entered as Reported by: TRACI MONTES on 12/18/211113 Last Action: Converted Ascorbate Calcium (Vitamin C) 500 Mg Tablet, 500 MG PO DAILY, (Reported) Entered as Reported by: TRACI MONTES on 12/18/211113 Last Action: Held Buspirone HCl (Buspirone HCl) 5 Mg Tablet, 5 MG PO TID, (Reported) Entered as Reported by: TRACI MONTES on 12/18/211113 Last Action: Continued Calcium Carbonate/Vitamin D3 (Calcium 600 + Vit D 400 Tablet) 600 Mg Calcium-10 Mcg (400 Unit) Tablet, 1 EACH PO DAILY, (Reported) Entered as Reported by: TRACI MONTES on 12/18/211113 Last Action: Reviewed Cholecalciferol (Vitamin D3) (Vitamin D3) 125 Mcg (5000 Unit) Capsule, 125 MCG PO DAILY, (Reported) Entered as Reported by: TRACI MONTES on 12/18/211113 Last Action: Held Cyclobenzaprine HCl (Cyclobenzaprine HCl) 10 Mg Tablet, 10 MG PO 0800,1700, (Reported) Entered as Reported by: TRACI MONTES on 12/18/211113 Last Action: Continued Docusate Sodium (Docusate Sodium) 100 Mg Capsule, 100 MG PO BID, (Reported) Entered as Reported by: TRACI MONTES on 12/18/211113 Last Action: Continued Docusate Sodium (Docusate Sodium) 100 Mg Capsule, 100 MG PO Q12H PRN for CONSTIPATION-1ST LINE, (Reported) Entered as Reported by: TRACI MONTES on 12/18/211113 Last Action: Continued Donepezil HCl (Donepezil HCl) 10 Mg Tablet, 10 MG PO 1700, (Reported) Entered as Reported by: TRACI MONTES on 12/18/211113 Last Action: Continued Duloxetine HCl (Duloxetine HCl) 60 Mg Capsule.dr, 60 MG PO DAILY, (Reported) Entered as Reported by: TRACI MONTES on 12/18/211113 Last Action: Converted Furosemide (Furosemide) 20 Mg Tablet, 20 MG PO DAILY, (Reported) Entered as Reported by: TRACI MONTES on 12/18/211113 Last Action: Continued Gabapentin (Neurontin) 300 Mg Capsule, 300 MG PO 0800,1700, (Reported) Entered as Reported by: TRACI MONTES on 12/18/211113 Last Action: Continued Lidocaine (Lidocaine 5% Patch) 5 % Adh..patch, 1 EACH TP Q12H PRN for LOWER BACK PAIN, (Reported) Entered as Reported by: TRACI MONTES on 12/18/211113 Last Action: Continued Lisinopril (Lisinopril) 20 Mg Tablet, 20 MG PO DAILY, (Reported) Entered as Reported by: TRACI MONTES on 12/18/211113 Last Action: Held Magnesium Hydroxide (Milk of Magnesia) 2,400 Mg/10 Ml Oral.susp, 30 ML PO DAILY PRN for CONSTIPATION-7TH LINE, (Reported) Entered as Reported by: TRACI MONTES on 12/18/211113 Last Action: Held Magnesium Oxide (Magnesium) 400 Mg Magnesium Tablet, 400 MG PO DAILY, (Reported) Entered as Reported by: TRACI MONTES on 12/18/211113 Last Action: Held Meloxicam (Meloxicam) 15 Mg Tablet, 15 MG PO DAILY, (Reported) Entered as Reported by: TRACI MONTES on 12/18/211113 Last Action: Held Menthol (Biofreeze) 4 % Gel..ml., 1 APPLIC TP Q6H PRN for MUSCLE PAIN, (Reported) Entered as Reported by: TRACI MONTES on 12/18/211113 Last Action: Held Multivitamin with Minerals (One Daily Plus Minerals) 1 Each Tablet, 1 EACH PO DAILY, (Reported) Entered as Reported by: TRACI MONTES on 12/18/211113 Last Action: Held Oxycodone HCl (Oxycodone HCl) 5 Mg Tablet, 5 MG PO Q6H PRN for PAIN-SEVERE (8- 10), (Reported) Entered as Reported by: TRACI MONTES on 12/18/211113 Last Action: Continued Pantoprazole Sodium (Pantoprazole Sodium) 40 Mg Tablet.dr, 40 MG PO DAILY, (Reported) Entered as Reported by: TRACI MONTES on 12/18/211113 Last Action: Continued Potassium Chloride (Klor-Con 8) 8 Meq Tablet.er, 8 MEQ PO DAILY, (Reported) Entered as Reported by: TRACI MONTES on 12/18/211113 Last Action: Held Pramipexole Di-HCl (Pramipexole Dihydrochloride) 0.5 Mg Tablet, 0.5 MG PO 1700, (Reported) Entered as Reported by: TRACI MONTES on 12/18/211113 Last Action: Continued Propranolol HCl (Propranolol HCl) 20 Mg Tablet, 20 MG PO BID, (Reported) Entered as Reported by: TRACI MONTES on 12/18/211113 Last Action: Held Exam Vital Signs Vital Signs Date Time Temp Pulse Resp B/P (MAP) Pulse Ox O2 Delivery O2 Flow Rate FiO2 12/21/21 10:49 96 Nasal Cannula 2.00 12/21/21 09:00 144 11 107/49 12/21/21 03:41 36.0 12/19/21 08:00 30 Physical Exam General: Awake but disoriented. No acute distress. Well nourished and appears stated age. She is morbidly obese. Eye: Extraocular movements are intact. Conjunctivae are clear. There are no xa nthelasma. HENT: Normocephalic. Atraumatic. Carotid pulsations 2/2 without bruits. Neck: Jugular venous pressure does not appear elevated. No thyromegaly appreciated. Respiratory: Lungs are clear to auscultation. Respirations are non-labored. Breath sounds are equal. Symmetrical chest wall expansion. Cardiovascular: Tachycardia with irregular rhythm. Distant S1/S2. No murmur. No gallop. Point of maximal impulse is not appear displaced. Good pulses equal in all extremities. 1+ bilateral pretibial edema. Gastrointestinal: Soft. Normal bowel sounds. Skin: Skin turgor is normal. There is no pallor. Musculoskeletal: No kyphosis or scoliosis appreciated. Neurologic: Awake but oriented to person only. Cranial nerves 3-12 appear grossly intact. Psychiatric: Cooperative. Obvious dementia. Labs Laboratory Tests Test 12/21/21 03:45 Range/Units White Blood Count 14.3 H 4.3-11.0 10^3/uL Red Blood Count 2.32 L 3.80-5.11 10^6/uL Hemoglobin 8.1 L 11.5-16.0 g/dL Hematocrit 26 L 35-52 % Mean Corpuscular Volume 110 H 80-99 fL Mean Corpuscular Hemoglobin 35 H 25-34 pg Mean Corpuscular Hemoglobin Concent 32 32-36 g/dL Red Cell Distribution Width 15.9 H 10.0-14.5 % Platelet Count 187 130-400 10^3/uL Mean Platelet Volume 9.8 9.0-12.2 fL Immature Granulocyte % (Auto) 1 % Neutrophils (%) (Auto) 76 H 42-75 % Lymphocytes (%) (Auto) 18 12-44 % Monocytes (%) (Auto) 5 0-12 % Eosinophils (%) (Auto) 0 0-10 % Basophils (%) (Auto) 0 0-10 % Neutrophils # (Auto) 10.9 H 1.8-7.8 10^3/uL Lymphocytes # (Auto) 2.6 1.0-4.0 10^3/uL Monocytes # (Auto) 0.7 0.0-1.0 10^3/uL Eosinophils # (Auto) 0.1 0.0-0.3 10^3/uL Basophils # (Auto) 0.0 0.0-0.1 10^3/uL Immature Granulocyte # (Auto) 0.1 0.0-0.1 10^3/uL Sodium Level 134 L 135-145 MMOL/L Potassium Level 4.5 3.6-5.0 MMOL/L Chloride Level 106 98-107 MMOL/L Carbon Dioxide Level 20 L 21-32 MMOL/L Anion Gap 8 5-14 MMOL/L Blood Urea Nitrogen 25 H 7-18 MG/DL Creatinine 1.10 0.60-1.30 MG/DL Estimat Glomerular Filtration Rate 49 BUN/Creatinine Ratio 23 Glucose Level 98 70-105 MG/DL Calcium Level 8.8 8.5-10.1 MG/DL Corrected Calcium 9.9 8.5-10.1 MG/DL Phosphorus Level 2.4 2.3-4.7 MG/DL Magnesium Level 1.9 1.6-2.4 MG/DL Total Bilirubin 0.5 0.1-1.0 MG/DL Aspartate Amino Transf (AST/SGOT) 15 5-34 U/L Alanine Aminotransferase (ALT/SGPT) 12 0-55 U/L Alkaline Phosphatase 123 40-136 U/L Total Protein 7.0 6.4-8.2 GM/DL Albumin 2.6 L 3.2-4.5 GM/DL Triglycerides Level 133 <150 MG/DL Cholesterol Level 140 < 200 MG/DL LDL Cholesterol Direct 93 1-129 MG/DL VLDL Cholesterol 27 5-40 MG/DL HDL Cholesterol 21 L 40-60 MG/DL Thyroid Stimulating Hormone (TSH) 4.90 0.35-4.94 UIU/ML Radiology ECHOCARDIOGRAM (12/21/2021): 1. This is a technically difficult study due to poor image quality secondary to patient's body habitus. Intravenous contrast was administered to enhance image quality. 2. Left ventricle: The cavity size is normal. There is mild concentric hypertrophy. Systolic function is moderately reduced. The estimated ejection fraction is 30-35%. Moderate diffuse hypokinesis with minor regional variation. The left ventricular diastolic function is indeterminate. 3. Left atrium: The left atrium is mildly dilated with a volume index of 38 mL/m. 4. Right atrium: The right atrium is mildly dilated with an area of 20 cm. 5. Pulmonary arteries: The estimated pulmonary artery systolic pressure is 44 mmHg assuming a right atrial pressure of 5 mmHg. ECG Impression ECG Comment Atrial fibrillation with a ventricular rate of 145 bpm and left bundle branch block. Diagnosis/Problems Diagnosis/Problems (1) Paroxysmal atrial fibrillation Assessment & Plan: She has developed atrial fibrillation with a rapid ventricular rate. I do not see any mention of atrial fibrillation in her previous hospital records although she does have mild biatrial enlargement which is suggestive of possible previous history of atrial fibrillation. I agree with intravenous diltiazem. I do not see any urgency to placing her on therapeutic dosing of enoxaparin at this time. I will change the enoxaparin back to DVT prophylactic dosing. If the atrial fibrillation persists for longer than 24 hours then we can consider therapeutic anticoagulation. Due to her left ventricular systolic dysfunction, I will start her on metoprolol succinate for rate control and hopefully we can wean off the intravenous diltiazem. If she does not convert to sinus rhythm overnight, we may need to consider starting her on amiodarone. (2) Acute HFrEF (heart failure with reduced ejection fraction) Assessment & Plan: This appears to be a new finding in the patient. She was on a low-dose of oral furosemide at home. I will change this over to intravenous furosemide 40 mg daily. I will start her on low-dose metoprolol succinate as above. Due to her borderline low blood pressure and chronic kidney disease, I will hold off on adding any of the other guideline directed medications at this point in time. (3) Cardiomyopathy Assessment & Plan: She had no previous echocardiogram in our system. I will start her on guideline directed medical therapy as outlined above. Given her advanced age and dementia, she would not be a good candidate for prophylactic defibrillator implantation and therefore, there would be no reason to prescribe a LifeVest. (4) Pulmonary hypertension Assessment & Plan: This is in a mild range on her echocardiogram. I suspect this may be related to the pneumonia and heart failure. (5) Primary hypertension Assessment & Plan: The medication reconciliation indicates that she may have been taking lisinopril and propranolol at home. I will start her on metoprolol succinate due to the cardiomyopathy, atrial fibrillation and heart failure as outlined above. If she tolerates this, then we could consider restarting low- dose JIM inhibitor. (6) Left bundle branch block Assessment & Plan: I did find an old electrocardiogram from a prior admission and this appears to be chronic. (7) Septic shock Assessment & Plan: She had required vasopressors earlier during her hospitalization but these have now been weaned off. (8) Acute kidney injury superimposed on chronic kidney disease Assessment & Plan: I reviewed labs from January 2021 and at that time she had stage III chronic kidney disease. At the time of this admission her creatinine level was slightly higher but now seems to have gone back to its baseline. We will need to be cautious with any medication that could affect her kidney function. (9) Morbid obesity Assessment & Plan: I would suggest limiting her caloric intake. (10) Dementia Assessment & Plan: We need to keep this condition in mind when considering long-term treatment and goals. Problem Qualifiers (1) Dementia: Dementia type: unspecified type Dementia behavioral disturbance: without behavioral disturbance Qualified Codes: F03.90 - Unspecified dementia without behavioral disturbance LUCERO WHITE JR, MD Dec 21, 2021 11:09
[2021-12-21] MEDS ORDERED: meTOproloL SUCCINATE 50 MG (TOPROL XL) TAB PO NR (11:30)
[2021-12-21] MEDS ORDERED: FUROSEMIDE 40 MG/4 ML INJ (LASIX) IVP NR (11:30)
[2021-12-21 13:58] LABS: ABG BASE EXCESS -3.1 MMOL/L (-2.5-2.5); ABG OXYGEN SATURATION 98 % (94-100); ABG PCO2 54 MMHG (35-45); ABG PO2 105 MMHG (79-93)
[2021-12-21 14:00] LABS: ABG PH 7.25 (7.37-7.43); ALLENS TEST YES-POS; INSPIRED O2 2L; PATIENT TEMP 36.2; VENTILATOR NO
[2021-12-21 14:26] VITALS: BP 72/55
[2021-12-21] MEDS ORDERED: NS IV 500 ML 500 ML ONE (16:45)
[2021-12-21] MEDS ORDERED: NS IV 1000 ML 500 ML IV SCH (16:45)
[2021-12-21 18:29] VITALS: BP 72/55
[2021-12-21] MEDS: PRAMIPEXOLE 0.5 MG TAB (MIRAPEX) PO SCH (19:55)
[2021-12-21] MEDS: DONEPEZIL 10 MG (ARICEPT) TAB PO SCH (19:55)
[2021-12-21] MEDS: AMITRIPTYLINE 25 MG (ELAVIL) TAB PO SCH (19:55)
[2021-12-21 22:41] VITALS: BP 72/55
[2021-12-22 02:37] VITALS: BP 72/55
[2021-12-22] MEDS: CEFEPIME 1,000 MG/NS 50 ML IVPB IV SCH ×6 (02:53→19:28)
[2021-12-22] MEDS: NOREPINEPHRINE 8 MG/250 ML 250 ML IV SCH (04:07)
[2021-12-22 04:33] LABS: BASOPHILS % (AUTO) 0 % (0-10); EOSINOPHILS # (AUTO) 0.1 10^3/uL (0.0-0.3); EOSINOPHILS % (AUTO) 1 % (0-10); HEMATOCRIT 27 % (35-52); HEMOGLOBIN 8.7 g/dL (11.5-16.0); LYMPHOCYTES # (AUTO) 2.7 10^3/uL (1.0-4.0); LYMPHOCYTES % (AUTO) 25 % (12-44); MEAN CORPUSCULAR HEMOGLOBIN 35 pg (25-34); MEAN CORPUSCULAR HGB CONC 32 g/dL (32-36); MEAN CORPUSCULAR VOLUME 109 fL (80-99); MEAN PLATELET VOLUME 10.1 fL (9.0-12.2); MONOCYTES % (AUTO) 10 % (0-12); NEUTROPHILS # (AUTO) 6.7 10^3/uL (1.8-7.8); NEUTROPHILS % (AUTO) 63 % (42-75); PLATELET COUNT 212 10^3/uL (130-400); WHITE BLOOD COUNT 10.6 10^3/uL (4.3-11.0)
[2021-12-22 04:46] LABS: ALBUMIN 2.6 GM/DL (3.2-4.5)
[2021-12-22 04:47] LABS: POTASSIUM 4.5 MMOL/L (3.6-5.0)
[2021-12-22 04:48] LABS: CALCIUM 9.4 MG/DL (8.5-10.1)
[2021-12-22 04:49] LABS: TOTAL PROTEIN 7.1 GM/DL (6.4-8.2)
[2021-12-22 04:51] LABS: BILIRUBIN,TOTAL 0.5 MG/DL (0.1-1.0)
[2021-12-22 04:52] LABS: PHOSPHORUS 2.3 MG/DL (2.3-4.7)
[2021-12-22 04:53] LABS: CREATININE SERUM 1.08 MG/DL (0.60-1.30)
[2021-12-22 04:55] LABS: MAGNESIUM 1.7 MG/DL (1.6-2.4)
[2021-12-22] MEDS: MAGNESIUM 1 GM/100 ML IVPB 100 ML IV SCH ×3 (05:04→06:53)
[2021-12-22] MEDS: POTASSIUM CL 10MEQ/50ML IVPB 50 ML IV SCH (05:04)
[2021-12-22] MEDS: KCL 20 MEQ TAB (K-DUR) PO SCH (05:05)
[2021-12-22] MEDS ORDERED: MAGNESIUM 2 GM/50 ML IVPB 50 ML IV ONE (05:15)
[2021-12-22] MEDS: ACETAMINOPHEN 500 MG TAB (TYLENOL) PO PRN (06:53)
[2021-12-22 07:43] VITALS: BP 103/54
[2021-12-22] MEDS: RT-ALBUTEROL/IPRATROPIUM 3 ML (DUONEB) VIAL INH SCH ×4 (07:43→18:22)
[2021-12-22] MEDS: DOCUSATE SODIUM 100 MG (COLACE) CAP PO SCH ×2 (08:46→19:29)
[2021-12-22] MEDS: CYCLOBENZAPRINE 10 MG (FLEXERIL) TAB PO SCH ×2 (08:46→16:57)
[2021-12-22] MEDS: GABAPENTIN 300 MG (NEURONTIN) CAP PO SCH ×2 (08:46→16:57)
[2021-12-22] MEDS: PANTOPRAZOLE 40 MG (PROTONIX) TAB PO SCH (08:46)
[2021-12-22] MEDS: busPIRone 5 MG (BUSPAR) TAB PO SCH ×3 (08:46→19:29)
[2021-12-22] MEDS: DULoxetine 30 MG (CYMBALTA) CAP PO SCH (08:46)
[2021-12-22] MEDS ORDERED: meTOproloL SUCCINATE 50 MG (TOPROL XL) TAB PO SCH (09:00)
[2021-12-22] MEDS ORDERED: FUROSEMIDE 40 MG/4 ML INJ (LASIX) IVP SCH (09:00)
--- NOTE | 2021-12-22 09:25 | Tele-ICU Progress Note ---
Subjective Date Seen by a Provider: Dec 22, 2021 Time Seen by a Provider: 07:55 Subjective/Events-last exam This virtual visit was conducted using real time audio/video. Thank you for asking us to see this patient for respiratory insufficiency due to pna, sepsis, PAF. Recent events: Levophed restarted 7/2 PM. PMH: dementia, htn. ROS: limited by patient's clinical condition. PE: Resting comfortably on camera. HR 108-120 afib. O2 sat 98% on BiPAP 10/5, 28%. HEENT: No obvious masses, adenopathy or JVD. Chest: clear to auscultation. Diminished. CV: Irreg. S1 S2 No murmur or added sounds. Abd: Non-tender. Bowel sounds Y. : Unremarkable. Fields Y. 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 No obvious focal findings. Extremities: Trace edema. Capillary refill < 3 seconds. Skin: unremarkable. Results: Elevated BUN 26, BG 109. Decreased Hb 8.7. B.25/54/105 on 2 LPM. CXR: B interstitial infilts, cardiomeg.. Available chart/ vitals / labs / images reviewed. Video assessment done using teleICU camera, rest of exam as per RN. A/P: Respiratory insufficiency: Continue present management with BiPAP/NC, Duonebs. Monitor for increasing oxygenation needs and/or need for intubation. Critical Care: critically ill patient. Cont.abx,jd., metop., levo., lasix, aricept, elavil, cymbalta. Discussed with RN JONN. Asked RN to reach out to eICU if any questions or concerns later. Time spent with patient/coordination of care with other health professionals (mins): 22. Sepsis Event Evaluation Height, Weight, BMI Height: '" Weight: lbs. oz. kg; 51.61 BMI Method: Focused Exam Time of Focused Exam: 01:00 Exam Exam Patient acknowledged, consented, and participated in this virtual visit which was conducted using real time audio/video Vital Signs Date Time Temp Pulse Resp B/P (MAP) Pulse Ox O2 Delivery O2 Flow Rate FiO2 12/22/21 08:00 108 26 90/68 99 Nasal Cannula 2.00 12/22/21 08:00 36.0 12/22/21 07:43 114 17 98 28.00 12/22/21 07:00 116 12/22/21 07:00 125 24 103/54 97 Nasal Cannula 2.00 12/22/21 06:00 118 11 111/90 99 Nasal Cannula 2.00 12/22/21 05:00 122 28 131/100 100 Nasal Cannula 2.00 12/22/21 04:07 107 113/72 12/22/21 04:00 96 NIV Bilevel 28 12/22/21 04:00 123 19 111/73 98 Nasal Cannula 2.00 12/22/21 03:00 114 12 113/72 98 Nasal Cannula 2.00 12/22/21 02:37 112 17 99 28.00 12/22/21 02:00 105 12 112/45 99 Nasal Cannula 2.00 12/22/21 01:00 123 11 130/77 99 Nasal Cannula 2.00 12/22/21 01:00 118 12/22/21 00:00 122 17 130/98 96 Nasal Cannula 2.00 12/21/21 23:59 96 NIV Bilevel 12/21/21 23:00 124 9 128/75 98 Nasal Cannula 2.00 12/21/21 22:41 113 17 99 28.00 12/21/21 22:00 115 10 114/100 98 Nasal Cannula 2.00 12/21/21 21:00 116 10 120/64 98 Nasal Cannula 2.00 12/21/21 20:00 120 10 115/65 97 Nasal Cannula 2.00 12/21/21 20:00 96 NIV Bilevel 12/21/21 20:00 36.3 12/21/21 19:00 117 10 107/65 97 Nasal Cannula 2.00 12/21/21 19:00 118 12/21/21 18:29 122 17 97 28.00 12/21/21 18:06 103 78/51 12/21/21 18:00 115 13 88/58 97 Nasal Cannula 2.00 12/21/21 17:00 113 15 97/34 97 Nasal Cannula 2.00 12/21/21 16:00 111 11 98/55 96 Nasal Cannula 2.00 12/21/21 16:00 96 NIV Bilevel 28 12/21/21 15:00 98 26 99/61 96 Nasal Cannula 2.00 12/21/21 14:26 102 14 96 28.00 12/21/21 14:00 98 35 101/59 100 Nasal Cannula 2.00 12/21/21 13:00 121 28 107/65 100 Nasal Cannula 2.00 12/21/21 12:43 110 12/21/21 12:00 108 26 104/71 99 Nasal Cannula 2.00 12/21/21 12:00 95 Nasal Cannula 2.00 12/21/21 11:00 111 27 106/75 95 Nasal Cannula 2.00 12/21/21 10:49 96 Nasal Cannula 2.00 12/21/21 10:00 113 28 107/66 96 Nasal Cannula 2.00 I & O 12/22/21 07:00 Intake Total 1600 ml Output Total 1665 ml Balance -65 ml Height & Weight Height: '" Weight: lbs. oz. kg; 51.61 BMI Method: General Appearance: No Apparent Distress, Chronically ill, Obese HEENT: PERRL/EOMI, Moist Mucous Membranes; No Scleral Icterus (L), No Scleral Icterus (R) Neck: Normal Inspection, Supple Respiratory: Lungs Clear, No Accessory Muscle Use Cardiovascular: Regular Rate, Rhythm, No Murmur Capillary Refill: Less Than 3 Seconds Peripheral Pulses: 1+ Radial Pulses (R), 1+ Radial Pulses (L) Gastrointestinal: normal bowel sounds, non tender, soft Extremity: No Calf Tenderness, No Pedal Edema Neurologic/Psychiatric: Alert, Oriented x3 (to major details only) Skin: Normal Color, Warm/Dry Results Lab Laboratory Tests 12/21/21 03:45 12/22/21 04:20 Assessment/Plan Assessment/Plan See free text. Critical Care: Critically Ill Patient DALLIN NICHOLE MD Dec 22, 2021 09:25
--- NOTE | 2021-12-22 10:08 | Cardiology Progress Note ---
Progress Note-Cardiology Events since last exam Date Seen by Provider: Dec 22, 2021 Time Seen by Provider: 10:03 Events since last exam I am following her due to acute heart failure with reduced ejection fraction and atrial fibrillation. She remains in the intensive care unit. Her daughter was at the bedside. When I saw the patient yesterday, she was on intravenous diltiazem but overnight she developed hypotension and the diltiazem was discontinued. This morning she was laying in bed comfortable and conversing with her daughter and son-in-law. She denied chest discomfort, dyspnea, palpitations, or syncope. Her lower extremity edema is improved. However, the patient does have severe short-term memory loss and her answers may not be reliable. The daughter does not recall her mother ever having been told she had atrial fibrillation or heart failure in the past. Certain portions of this document may have been dictated utilizing voice recognition technology. Inherent to this technology, typographical and grammatical errors may exist. As much as I am diligent to identify and correct these mistakes, some errors may remain in the document. Vitals Last set of Vitals Signs Vital Signs 12/22/21 12/22/21 08:00 09:00 Temp 36.0 Pulse 117 Resp 32 B/P (MAP) 84/51 Pulse Ox 97 O2 Delivery Nasal Cannula O2 Flow Rate 2.00 FiO2 28 Labs Labs Laboratory Tests 12/22/21 04:20 Exam Vital Signs Vital Signs Date Time Temp Pulse Resp B/P (MAP) Pulse Ox O2 Delivery O2 Flow Rate FiO2 12/22/21 09:00 117 32 84/51 97 Nasal Cannula 2.00 12/22/21 08:00 36.0 12/22/21 08:00 28 Labs Laboratory Tests Test 12/21/21 13:45 12/22/21 04:20 Range/Units Blood Gas Puncture Site RAL Blood Gas Patient Temperature 36.2 Arterial Blood pH 7.25 *L 7.37-7.43 Arterial Blood Partial Pressure CO2 54 H 35-45 MMHG Arterial Blood Partial Pressure O2 105 H 79-93 MMHG Arterial Blood HCO3 23 23-27 MMOL/L Arterial Blood Total CO2 25.0 21.0-31.0 MMOL/L Arterial Blood Oxygen Saturation 98 94-100 % Arterial Blood Base Excess -3.1 L -2.5-2.5 MMOL/L Diony Test YES-POS Blood Gas Ventilator Setting NO Blood Gas Inspired Oxygen 2L White Blood Count 10.6 4.3-11.0 10^3/uL Red Blood Count 2.51 L 3.80-5.11 10^6/uL Hemoglobin 8.7 L 11.5-16.0 g/dL Hematocrit 27 L 35-52 % Mean Corpuscular Volume 109 H 80-99 fL Mean Corpuscular Hemoglobin 35 H 25-34 pg Mean Corpuscular Hemoglobin Concent 32 32-36 g/dL Red Cell Distribution Width 15.9 H 10.0-14.5 % Platelet Count 212 130-400 10^3/uL Mean Platelet Volume 10.1 9.0-12.2 fL Immature Granulocyte % (Auto) 1 % Neutrophils (%) (Auto) 63 42-75 % Lymphocytes (%) (Auto) 25 12-44 % Monocytes (%) (Auto) 10 0-12 % Eosinophils (%) (Auto) 1 0-10 % Basophils (%) (Auto) 0 0-10 % Neutrophils # (Auto) 6.7 1.8-7.8 10^3/uL Lymphocytes # (Auto) 2.7 1.0-4.0 10^3/uL Monocytes # (Auto) 1.0 0.0-1.0 10^3/uL Eosinophils # (Auto) 0.1 0.0-0.3 10^3/uL Basophils # (Auto) 0.0 0.0-0.1 10^3/uL Immature Granulocyte # (Auto) 0.1 0.0-0.1 10^3/uL Sodium Level 134 L 135-145 MMOL/L Potassium Level 4.5 3.6-5.0 MMOL/L Chloride Level 106 98-107 MMOL/L Carbon Dioxide Level 20 L 21-32 MMOL/L Anion Gap 8 5-14 MMOL/L Blood Urea Nitrogen 26 H 7-18 MG/DL Creatinine 1.08 0.60-1.30 MG/DL Estimat Glomerular Filtration Rate 50 BUN/Creatinine Ratio 24 Glucose Level 109 H 70-105 MG/DL Calcium Level 9.4 8.5-10.1 MG/DL Corrected Calcium 10.5 H 8.5-10.1 MG/DL Phosphorus Level 2.3 2.3-4.7 MG/DL Magnesium Level 1.7 1.6-2.4 MG/DL Total Bilirubin 0.5 0.1-1.0 MG/DL Aspartate Amino Transf (AST/SGOT) 16 5-34 U/L Alanine Aminotransferase (ALT/SGPT) 9 0-55 U/L Alkaline Phosphatase 123 40-136 U/L Total Protein 7.1 6.4-8.2 GM/DL Albumin 2.6 L 3.2-4.5 GM/DL Diagnosis/Problems Diagnosis/Problems (1) Paroxysmal atrial fibrillation Assessment & Plan: She has developed atrial fibrillation with a rapid ventricular rate. I do not see any mention of atrial fibrillation in her previous hospital records although she does have mild biatrial enlargement which is suggestive of possible previous history of atrial fibrillation. She was given 1 dose of metoprolol succinate on 12/21 and another dose this morning. Given the low blood pressure, I will lower the dose. Since she has remained in atrial fibrillation for 24 hours, I will place her on oral anticoagulation with apixaban 5 mg twice daily. Although she is over the age of 81, her weight is above 60 kg and creatinine below 1.5 and therefore, there is no indication to decrease the dose apixaban. I will also start her on oral amiodarone. (2) Acute HFrEF (heart failure with reduced ejection fraction) Assessment & Plan: This appears to be a new finding in the patient. She was on a low-dose of oral furosemide at home. I changed this over to intravenous furosemide 40 mg daily on 12/21. I started her on low-dose metoprolol succinate as above but I will lower the dose to 2 low blood pressure. Due to her borderline low blood pressure and chronic kidney disease, I will hold off on adding any of the other guideline directed medications at this point in time. (3) Cardiomyopathy Assessment & Plan: She had no previous echocardiogram in our system. I will start her on guideline directed medical therapy as outlined above. Given her advanced age and dementia, she would not be a good candidate for prophylactic defibrillator implantation and therefore, there would be no reason to prescribe a LifeVest. (4) Pulmonary hypertension Assessment & Plan: This is in a mild range on her echocardiogram. I suspect this may be related to the pneumonia and heart failure. (5) Primary hypertension Assessment & Plan: The medication reconciliation indicates that she may have been taking lisinopril and propranolol at home. I will start her on metoprolol succinate due to the cardiomyopathy, atrial fibrillation and heart failure as outlined above. If she tolerates this, then we could consider restarting low- dose JIM inhibitor. (6) Macrocytic anemia Assessment & Plan: I could not find any old laboratory results in our computer system. Unknown whether or not the anemia is an acute or chronic problem for the patient. This is not necessarily a contraindication to oral anticoagulation. (7) Left bundle branch block Assessment & Plan: I did find an old electrocardiogram from a prior admission and this appears to be chronic. (8) Acute respiratory failure with hypoxemia Assessment & Plan: Most likely due to the combination of pneumonia and heart failure. (9) Septic shock Assessment & Plan: She had required vasopressors earlier during her hospitalization but these have now been weaned off. (10) Acute kidney injury superimposed on chronic kidney disease Assessment & Plan: I reviewed labs from January 2021 and at that time she had stage III chronic kidney disease. At the time of this admission her creatinine level was slightly higher but now seems to have gone back to its baseline. We will need to be cautious with any medication that could affect her kidney function. (11) Morbid obesity Assessment & Plan: I would suggest limiting her caloric intake. (12) Dementia Assessment & Plan: We need to keep this condition in mind when considering long-term treatment and goals. Problem Qualifiers (1) Dementia: Dementia type: unspecified type Dementia behavioral disturbance: without behavioral disturbance Qualified Codes: F03.90 - Unspecified dementia without behavioral disturbance LUCERO WHITE JR, MD Dec 22, 2021 10:08
--- NOTE | 2021-12-22 10:23 | Progress Note - Hospitalist ---
Subjective HPI/CC On Admission Date Seen by Provider: Dec 22, 2021 Patient is an 86-year-old female past medical history of hypertension, dementia, neuropathy who presented to the emergency department due to altered mental status after a fall. She is unable to tell me what brought her to the hospital. She was surprised that that she was sick and also seems surprised that she was in the hospital. Per ER note she was talking with the nurse and then 30 minutes later was found down by the staff at her [facility]. They were concerned that she had "word salad "and decided to bring her in for evaluation. On arrival to the emergency department she was objectively short of breath and was wheezing. She was also found to be febrile. She was placed on BiPAP due to her work of breathing. She was found to have likely pneumonia and was to be admitted to [facility] but after antibiotics became hypotensive and pressors were needed. She was admitted to the ICU. She remains on pressors at this time but reports feeling better and has no complaints. After further discussion though she does endorse a history of hacking cough for the past week. Subjective/Events-last exam Pt reports feeling better today. More alert but slightly confused. RN at bedside assisting with taking BiPAP off. Focused Exam Time of Focused Exam: 01:00 Objective Exam Vital Signs Vital Signs Date Time Temp Pulse Resp B/P (MAP) Pulse Ox O2 Delivery O2 Flow Rate FiO2 12/22/21 09:00 117 32 84/51 97 Nasal Cannula 2.00 12/22/21 08:00 36.0 12/22/21 08:00 28 Capillary Refill : Less Than 3 Seconds General Appearance: No Apparent Distress, Chronically ill, Obese Respiratory: Lungs Clear, No Respiratory Distress Cardiovascular: Regular Rate, Rhythm, No Murmur Gastrointestinal: Normal Bowel Sounds, Soft Neurologic/Psychiatric: Alert, Other (oriented to person and place only) Results/Procedures Lab Laboratory Tests 12/22/21 04:20 Patient resulted labs reviewed. Imaging: Reviewed Imaging Report Assessment/Plan Assessment and Plan Assess & Plan/Chief Complaint A-fib with RVR Cardiomyopathy New onset Cardizem gtt remains in place Lovenox for stroke ppx Echo reveals EF of 30% COntinue lasix Cardiology consulted, appreciate recs Septic Shock due to pneumonia Acute respiratory failure NGTD on cultures Continue Cefepime Had to go back on pressors last night with cardizem gtt BiPAP HS and prn HTN BP low with cardizem gtt and was back on pressors overnight Hold home BP meds for this Neuropathy Dementia Anxiety fibromyalgia Continue home meds DVT ppx: Lovenox Critical Care Critically Ill Patient Diagnosis/Problems Diagnosis/Problems (1) Hypertension Qualifiers: Hypertension type: primary hypertension Qualified Codes: I10 - Essential (primary) hypertension (2) Dementia Qualifiers: Dementia type: unspecified type Dementia behavioral disturbance: without behavioral disturbance Qualified Codes: F03.90 - Unspecified dementia without behavioral disturbance (3) Neuropathy (4) Acute respiratory failure Status: Acute Qualifiers: Respiratory failure complication: unspecified whether with hypoxia or hypercapnia Qualified Codes: J96.00 - Acute respiratory failure, unspecified whether with hypoxia or hypercapnia (5) Sepsis Status: Acute Qualifiers: Sepsis type: sepsis due to unspecified organism Sepsis acute organ dysfunction status: with acute organ dysfunction Severe sepsis acute organ dysfunction type: acute respiratory failure Acute respiratory failure type: with hypoxia Severe sepsis shock status: with septic shock Qualified Codes: A41.9 - Sepsis, unspecified organism; R65.21 - Severe sepsis with septic shock; J96.01 - Acute respiratory failure with hypoxia SHIRA VEGA MD Dec 22, 2021 10:23
--- NOTE | 2021-12-22 10:56 | Diagnostic Imaging Report ---
Indication: Dyspnea, followup heart failure. Comparison: 12/19/2021. Discussion: Single portable upright view of the chest was obtained. Cardiomegaly is stable. Interval removal of the right IJ line. New right PICC line with tip at the cavoatrial junction in good position. Improved aeration of the lungs with decreasing pulmonary edema, now mild. No pleural fluid or pneumothorax. No osseous abnormality. Impression: 1. New right-sided PICC line with tip in good position near the cavoatrial junction. 2. Cardiomegaly with decreasing pulmonary edema. Dictated by: Dictated on workstation # [id number]
[2021-12-22] MEDS: AMIODARONE 200 MG (CORDARONE) TAB PO SCH ×2 (11:07→19:29)
[2021-12-22] MEDS: DONEPEZIL 10 MG (ARICEPT) TAB PO SCH (16:57)
[2021-12-22] MEDS: AMITRIPTYLINE 25 MG (ELAVIL) TAB PO SCH (16:57)
[2021-12-22] MEDS: PRAMIPEXOLE 0.5 MG TAB (MIRAPEX) PO SCH (16:57)
[2021-12-22] MEDS: APIXABAN 5 MG (ELIQUIS) TABLET PO SCH (19:29)
[2021-12-23] MEDS: NOREPINEPHRINE 8 MG/250 ML 250 ML IV SCH ×2 (03:50→16:17)
[2021-12-23] MEDS: CEFEPIME 1,000 MG/NS 50 ML IVPB IV SCH ×2 (03:51)
[2021-12-23 04:11] LABS: BASOPHILS % (AUTO) 0 % (0-10); EOSINOPHILS # (AUTO) 0.1 10^3/uL (0.0-0.3); EOSINOPHILS % (AUTO) 1 % (0-10); HEMATOCRIT 26 % (35-52); HEMOGLOBIN 8.4 g/dL (11.5-16.0); LYMPHOCYTES # (AUTO) 2.7 10^3/uL (1.0-4.0); LYMPHOCYTES % (AUTO) 27 % (12-44); MEAN CORPUSCULAR HEMOGLOBIN 35 pg (25-34); MEAN CORPUSCULAR HGB CONC 32 g/dL (32-36); MEAN CORPUSCULAR VOLUME 108 fL (80-99); MEAN PLATELET VOLUME 10.5 fL (9.0-12.2); MONOCYTES # (AUTO) 0.9 10^3/uL (0.0-1.0); MONOCYTES % (AUTO) 10 % (0-12); NEUTROPHILS % (AUTO) 61 % (42-75); PLATELET COUNT 251 10^3/uL (130-400); WHITE BLOOD COUNT 9.8 10^3/uL (4.3-11.0)
[2021-12-23 04:16] LABS: ALBUMIN 2.5 GM/DL (3.2-4.5); POTASSIUM 3.9 MMOL/L (3.6-5.0)
[2021-12-23 04:17] LABS: CALCIUM 9.4 MG/DL (8.5-10.1)
[2021-12-23 04:18] LABS: TOTAL PROTEIN 6.8 GM/DL (6.4-8.2)
[2021-12-23 04:20] LABS: BILIRUBIN,TOTAL 0.4 MG/DL (0.1-1.0)
[2021-12-23 04:22] LABS: CREATININE SERUM 0.88 MG/DL (0.60-1.30); PHOSPHORUS 1.8 MG/DL (2.3-4.7)
[2021-12-23 04:25] LABS: MAGNESIUM 1.7 MG/DL (1.6-2.4)
[2021-12-23] MEDS: KCL 20 MEQ TAB (K-DUR) PO SCH (05:15)
[2021-12-23] MEDS: POTASSIUM CL 10MEQ/50ML IVPB 50 ML IV SCH (05:15)
[2021-12-23] MEDS: MAGNESIUM 1 GM/100 ML IVPB 100 ML IV SCH ×4 (05:15→14:28)
[2021-12-23] MEDS: RT-ALBUTEROL/IPRATROPIUM 3 ML (DUONEB) VIAL INH SCH ×3 (07:49→21:39)
[2021-12-23 08:11] VITALS: BP 99/77
[2021-12-23] MEDS: DOCUSATE SODIUM 100 MG (COLACE) CAP PO SCH ×2 (08:25→20:10)
[2021-12-23] MEDS: CYCLOBENZAPRINE 10 MG (FLEXERIL) TAB PO SCH ×2 (08:26→16:21)
[2021-12-23] MEDS: PANTOPRAZOLE 40 MG (PROTONIX) TAB PO SCH (08:26)
[2021-12-23] MEDS: busPIRone 5 MG (BUSPAR) TAB PO SCH ×3 (08:26→20:10)
[2021-12-23] MEDS: dilTIAZem DRIP PRE-MIX 125 ML IV SCH (08:26)
[2021-12-23] MEDS: DULoxetine 30 MG (CYMBALTA) CAP PO SCH (08:26)
[2021-12-23] MEDS: AMIODARONE 200 MG (CORDARONE) TAB PO SCH ×2 (08:26→19:30)
[2021-12-23] MEDS: GABAPENTIN 300 MG (NEURONTIN) CAP PO SCH ×2 (08:26→16:21)
[2021-12-23] MEDS: APIXABAN 5 MG (ELIQUIS) TABLET PO SCH ×2 (08:26→20:10)
[2021-12-23] MEDS: meTOproloL SUCCINATE 50 MG (TOPROL XL) TAB PO SCH (08:26)
--- NOTE | 2021-12-23 09:07 | Tele-ICU Progress Note ---
Subjective Date Seen by a Provider: Dec 23, 2021 Time Seen by a Provider: 09:07 Subjective/Events-last exam Available chart/vitals/labs/images reviewed. Video assessment done using telemetry ICU camera, rest of exam as per RN. Discussion with the RN, exam as per RN. Hospital course Patient currently using oxygen via nasal cannula. She developed atrial fibrillation with rapid ventricular rate currently on amiodarone. She is still slightly hypotensive requiring small dose of Levophed. In view of the low blood pressure Lasix has been held. She is apparently getting sundown affect in the evening. Otherwise no acute respiratory distress present she is a disoriented Review of Systems ROS PER RN Sepsis Event Evaluation Height, Weight, BMI Height: '" Weight: lbs. oz. kg; 51.61 BMI Method: Focused Exam Time of Focused Exam: 01:00 Exam Exam Patient acknowledged, consented, and participated in this virtual visit which was conducted using real time audio/video Vital Signs Date Time Temp Pulse Resp B/P (MAP) Pulse Ox O2 Delivery O2 Flow Rate FiO2 12/23/21 08:11 36.3 110 97 12/23/21 08:00 128 14 98/84 97 Nasal Cannula 2.00 12/23/21 07:46 97 Nasal Cannula 3.00 12/23/21 07:00 110 12/23/21 07:00 126 19 99/77 97 Nasal Cannula 2.00 12/23/21 06:00 117 12 100/80 98 Nasal Cannula 2.00 12/23/21 05:00 111 13 114/83 98 Nasal Cannula 2.00 12/23/21 04:00 36.3 12/23/21 04:00 96 Nasal Cannula 2.00 12/23/21 04:00 110 15 111/83 98 Nasal Cannula 2.00 12/23/21 03:50 109 109/80 12/23/21 03:00 125 21 114/76 98 Nasal Cannula 2.00 12/23/21 02:00 108 21 105/77 98 Nasal Cannula 2.00 12/23/21 01:00 121 17 103/75 98 Nasal Cannula 2.00 12/23/21 00:59 119 12/23/21 00:15 36.0 12/23/21 00:00 129 16 91/74 98 Nasal Cannula 2.00 12/22/21 23:59 96 Nasal Cannula 2.00 12/22/21 23:00 111 22 104/77 98 Nasal Cannula 2.00 12/22/21 22:00 118 18 106/66 98 Nasal Cannula 2.00 12/22/21 21:00 118 19 119/73 98 Nasal Cannula 2.00 12/22/21 20:00 36.2 12/22/21 20:00 100 20 125/65 100 Nasal Cannula 2.00 12/22/21 20:00 96 Nasal Cannula 2.00 12/22/21 19:01 114 12/22/21 19:00 106 16 90/58 95 Nasal Cannula 2.00 12/22/21 18:22 97 Nasal Cannula 3.00 12/22/21 18:00 112 25 89/71 95 Nasal Cannula 2.00 12/22/21 17:00 113 25 106/91 95 Nasal Cannula 2.00 12/22/21 17:00 36.0 12/22/21 16:00 96 Nasal Cannula 2.00 12/22/21 16:00 110 28 119/76 98 Nasal Cannula 2.00 12/22/21 15:00 104 92/64 98 Nasal Cannula 2.00 12/22/21 14:48 96 Nasal Cannula 2.00 12/22/21 14:00 96 30 90/74 97 Nasal Cannula 2.00 12/22/21 13:00 116 12 92/52 92 Nasal Cannula 2.00 12/22/21 12:34 109 12/22/21 12:00 96 Nasal Cannula 2.00 12/22/21 12:00 35.3 12/22/21 12:00 105 15 112/76 94 Nasal Cannula 2.00 12/22/21 11:00 90 25 91 Nasal Cannula 2.00 12/22/21 10:35 96 Nasal Cannula 2.00 12/22/21 10:00 98 14 103/48 96 Nasal Cannula 2.00 I & O 12/23/21 07:00 Intake Total 1020 ml Output Total 3455 ml Balance -2435 ml Height & Weight Height: '" Weight: lbs. oz. kg; 51.61 BMI Method: General Appearance: No Apparent Distress, Chronically ill, Obese HEENT: PERRL/EOMI, Moist Mucous Membranes; No Scleral Icterus (L), No Scleral Icterus (R) Neck: Normal Inspection, Supple Respiratory: Lungs Clear, No Accessory Muscle Use Cardiovascular: Regular Rate, Rhythm, No Murmur Capillary Refill: Less Than 3 Seconds Peripheral Pulses: 1+ Radial Pulses (R), 1+ Radial Pulses (L) Gastrointestinal: normal bowel sounds, non tender, soft Extremity: No Calf Tenderness, No Pedal Edema Neurologic/Psychiatric: Alert, Oriented x3 (to major details only) Skin: Normal Color, Warm/Dry Results Lab Laboratory Tests 12/22/21 04:20 12/23/21 03:30 Assessment/Plan Assessment/Plan 1. Possible sepsis with altered mental status some what improved 2. Hypotension . on levophed 3. Morbid obesity contributing to her respiratory distress 4. Acute hypoxic respiratory failure secondary to pneumonia and sepsis , OFF BiPAP ventilation. 5. Anxiety disorder., OFF precedex 6. Super morbid obesity with underlying osteoarthritis causing unsteady gait. 7. new onset afib on amiodorone. 8. chf with reduced EF Recommendations 1. iv to kvo. hold lasic 2. oxygenate with n/c 3. IV antibiotics 4. Apixaban po 5. Continue amiodorone and levophed per cardiology Critical Care: Critically Ill Patient Time spent with patient (mins): 20 YOAN KEE MD Dec 23, 2021 09:07
--- NOTE | 2021-12-23 09:26 | Cardiology Progress Note ---
Progress Note-Cardiology Events since last exam Date Seen by Provider: Dec 23, 2021 Time Seen by Provider: 09:21 Events since last exam I am seeing her due to heart failure with reduced ejection fraction and atrial fibrillation. She remains in the intensive care unit. She has been on and off norepinephrine infusion due to recurrent shock. She is complaining of low back pain which is a chronic problem. She denies chest discomfort, dyspnea, palpitations, or syncope. She has mild lower extremity edema. Certain portions of this document may have been dictated utilizing voice recognition technology. Inherent to this technology, typographical and grammatical errors may exist. As much as I am diligent to identify and correct these mistakes, some errors may remain in the document. Vitals Last set of Vitals Signs Vital Signs 12/22/21 12/23/21 12/23/21 08:00 08:11 09:00 Temp 36.3 Pulse 126 Resp 20 B/P (MAP) 106/84 Pulse Ox 97 O2 Delivery Nasal Cannula O2 Flow Rate 2.00 FiO2 28 Labs Labs Laboratory Tests 12/23/21 03:30 Exam Vital Signs Vital Signs Date Time Temp Pulse Resp B/P (MAP) Pulse Ox O2 Delivery O2 Flow Rate FiO2 12/23/21 09:00 126 20 106/84 97 Nasal Cannula 2.00 12/23/21 08:11 36.3 12/22/21 12:00 Physical Exam General: Alert but confused. No acute distress. She is obese. Eye: No xanthelasma. HENT: Normocephalic. Neck: Jugular venous pressure does not appear elevated. Respiratory: Lungs are clear to auscultation but decreased at the bases bilaterally. Respirations are non-labored. Breath sounds are equal. Symmetrical chest wall expansion. Cardiovascular: Tachycardia with irregular rhythm. Distant S1/S2. No murmur. No gallop. 2+ bilateral pretibial edema. Gastrointestinal: Soft. Normal bowel sounds. Skin: Warm. Dry. Neurologic: Awake and oriented to person only. Cranial nerves 3-11 grossly intact. Psychiatric: Cooperative. Obvious short-term memory loss. Labs Laboratory Tests Test 12/23/21 03:30 Range/Units White Blood Count 9.8 4.3-11.0 10^3/uL Red Blood Count 2.42 L 3.80-5.11 10^6/uL Hemoglobin 8.4 L 11.5-16.0 g/dL Hematocrit 26 L 35-52 % Mean Corpuscular Volume 108 H 80-99 fL Mean Corpuscular Hemoglobin 35 H 25-34 pg Mean Corpuscular Hemoglobin Concent 32 32-36 g/dL Red Cell Distribution Width 15.6 H 10.0-14.5 % Platelet Count 251 130-400 10^3/uL Mean Platelet Volume 10.5 9.0-12.2 fL Immature Granulocyte % (Auto) 1 % Neutrophils (%) (Auto) 61 42-75 % Lymphocytes (%) (Auto) 27 12-44 % Monocytes (%) (Auto) 10 0-12 % Eosinophils (%) (Auto) 1 0-10 % Basophils (%) (Auto) 0 0-10 % Neutrophils # (Auto) 6.0 1.8-7.8 10^3/uL Lymphocytes # (Auto) 2.7 1.0-4.0 10^3/uL Monocytes # (Auto) 0.9 0.0-1.0 10^3/uL Eosinophils # (Auto) 0.1 0.0-0.3 10^3/uL Basophils # (Auto) 0.0 0.0-0.1 10^3/uL Immature Granulocyte # (Auto) 0.1 0.0-0.1 10^3/uL Sodium Level 134 L 135-145 MMOL/L Potassium Level 3.9 3.6-5.0 MMOL/L Chloride Level 104 98-107 MMOL/L Carbon Dioxide Level 22 21-32 MMOL/L Anion Gap 8 5-14 MMOL/L Blood Urea Nitrogen 22 H 7-18 MG/DL Creatinine 0.88 0.60-1.30 MG/DL Estimat Glomerular Filtration Rate 64 BUN/Creatinine Ratio 25 Glucose Level 102 70-105 MG/DL Calcium Level 9.4 8.5-10.1 MG/DL Corrected Calcium 10.6 H 8.5-10.1 MG/DL Phosphorus Level 1.8 L 2.3-4.7 MG/DL Magnesium Level 1.7 1.6-2.4 MG/DL Total Bilirubin 0.4 0.1-1.0 MG/DL Aspartate Amino Transf (AST/SGOT) 20 5-34 U/L Alanine Aminotransferase (ALT/SGPT) 11 0-55 U/L Alkaline Phosphatase 124 40-136 U/L Total Protein 6.8 6.4-8.2 GM/DL Albumin 2.5 L 3.2-4.5 GM/DL Diagnosis/Problems Diagnosis/Problems (1) Paroxysmal atrial fibrillation Assessment & Plan: She has developed atrial fibrillation with a rapid ventricular rate. I do not see any mention of atrial fibrillation in her previous hospital records although she does have mild biatrial enlargement which is suggestive of possible previous history of atrial fibrillation. She was given 1 dose of metoprolol succinate on 12/21 and another dose on 12/22. I had lowered the dose to 2 low blood pressure. I started her on apixaban 5 mg twice daily on 12/22. Although she is over the age of 81, her weight is above 60 kg and creatinine below 1.5 and therefore, there is no indication to decrease the dose apixaban. I started her on oral amiodarone on 12/22 but she still has atrial fibrillation with intermittent rapid ventricular rates. I will start her on an amiodarone infusion which should help control her heart rate and hopefully will not result in hypotension. (2) Acute HFrEF (heart failure with reduced ejection fraction) Assessment & Plan: This appears to be a new finding in the patient. She was on a low-dose of oral furosemide at home. I changed this over to intravenous furosemide 40 mg daily on 12/21. I started her on low-dose metoprolol succinate at this will need to be intermittently held until her blood pressure improves. Due to her borderline low blood pressure and chronic kidney disease, I will hold off on adding any of the other guideline directed medications at this point in time. (3) Cardiomyopathy Assessment & Plan: She had no previous echocardiogram in our system. Exact etiology of the cardiomyopathy is unclear. Given her advanced age and dementia coupled with chronic kidney disease, she would not be an ideal candidate for an invasive ischemic evaluation. We will attempt to manage her with conservative medical therapy. I started her on guideline directed medical therapy as outlined above. Given her advanced age and dementia, she would not be a good candidate for prophylactic defibrillator implantation and therefore, there would be no reason to prescribe a LifeVest. (4) Pulmonary hypertension Assessment & Plan: This is in a mild range on her echocardiogram. I suspect this may be related to the pneumonia and heart failure. (5) Primary hypertension Assessment & Plan: The medication reconciliation indicates that she may have been taking lisinopril and propranolol at home. I started her on metoprolol succinate due to the cardiomyopathy, atrial fibrillation and heart failure as outlined above. If she tolerates this, then we could consider restarting low- dose JIM inhibitor. (6) Macrocytic anemia Assessment & Plan: I could not find any old laboratory results in our computer system. Unknown whether or not the anemia is an acute or chronic problem for the patient. This is not necessarily a contraindication to oral anticoagulation. (7) Left bundle branch block Assessment & Plan: I did find an old electrocardiogram from a prior admission and the left bundle branch block appears to be chronic. (8) Acute respiratory failure with hypoxemia Assessment & Plan: Most likely due to the combination of pneumonia and heart failure. (9) Septic shock Assessment & Plan: She had required vasopressors earlier during her hospitalization and she has been developing recurrent shock requiring vasopressors. (10) Acute kidney injury superimposed on chronic kidney disease Assessment & Plan: I reviewed labs from January 2021 and at that time she had stage III chronic kidney disease. At the time of this admission her creatinine level was slightly higher but now seems to have gone back to its baseline. We will need to be cautious with any medication that could affect her kidney function. (11) Morbid obesity Assessment & Plan: I would suggest limiting her caloric intake. (12) Dementia Assessment & Plan: We need to keep this condition in mind when considering long-term treatment and goals. Problem Qualifiers (1) Dementia: Dementia type: unspecified type Dementia behavioral disturbance: without behavioral disturbance Qualified Codes: F03.90 - Unspecified dementia without behavioral disturbance LUCERO WHITE JR, MD Dec 23, 2021 09:26
[2021-12-23] MEDS: AMIODARONE INJECTION 450 MG in D5W IV SOLUTION (EXCEL) 250 ML IV SCH ×2 (09:44→17:40)
[2021-12-23] MEDS ORDERED: POTASSIUM PHOSPHATE INJ 30 MM in NS (IVPB) 250 ML IV ONE (12:15)
--- NOTE | 2021-12-23 13:37 | Physical Therapy Daily Note ---
PT Daily Note-Current Subjective Patient lying supine in bed upon PT arrival, asleep however agreeable to treatment upon being awakened. Daughter in the room as well. Mental Status Attachments: Oxygen, Fields Catheter, IV Transfers SCALE: Activities may be completed with or without assistive devices. 6-Huclpqldeo-jeopcgr completes the activity by him/herself with no assistance from a helper. 5-Set-up or Clean-up Assistance-helper sets up or cleans up; patient completes activity. [place] assists only prior to or following the activity. 4-Supervision or Touching Assistance-helper provides verbal cues and/or touching/steadying and/or contact guard assistance as patient completes activity. Assistance may be provided throughout the activity or intermittently. 3-Partial/Moderate Assistance-helper does LESS THAN HALF the effort. [place] lifts, holds or supports trunk or limbs, but provides less than half the effort. 2-Substantial/Maximal Assistance-helper does MORE THAN HALF the effort. [place] lifts or holds trunk or limbs and provides more than half the effort. 2-Wtljpefin-enuqtg does ALL the effort. Patient does none of the effort to complete the activity. Or, the assistance of 2 or more helpers is required for the patient to complete the activity. If activity was not attempted, code reason: 7-Patient Refused. 9-Not Applicable-not attempted and the patient did not perform the activity before the current illness, exacerbation or injury. 10-Not Attempted due to Environmental Limitations-(lack of equipment, weather restraints, etc.). 88-Not Attempted due to Medical Conditions or Safety Concerns. Roll Left & Right (QC): 1 Sit to Lying (QC): 1 Lying to Sitting/Side of Bed(Q: 1 Weight Bearing Right Lower Extremity: Right Weight Bearing/Tolerated Left Lower Extremity: Left Weight Bearing/Tolerated Gait Training Does the Patient Walk?: No and Walking Goal IS indicated Assessment Current Status: Poor Progress Patient demonstrates decline in overall movement this treatment session. She does not appear to be in as much pain as she does not yell when moving the left LE as she did last treatment. Patient requires total assistance for all observed bed mobility. Patient sits on the edge of the bed ~10 minutes, however she is unable to maintain sitting balance for more than 1-2 seconds without max/total A. Patient requires total A for return to bed. Patient in bed post treatment with all needs met, nursing notified, call light in hand and daughter in the room. PT Correction Goals Correction Goals PT Manager Combination Goals Time Frame: Jan 11, 2022 Roll Left & Right (QC): 3 Sit to Lying (QC): 3 Lying-Sitting on Side/Bed(QC): 3 Sit to Stand (QC): 3 Chair/Jww-lq-Jzwsp Xfer(QC): 3 PT Plan Treatment/Plan Treatment Plan: Continue Plan of Care Treatment Plan: Bed Mobility, Education, Functional Activity Ramiro, Functional Strength, Group Therapy, Safety, Therapeutic Exercise, Transfers Treatment Duration: Jan 18, 2022 Frequency: 5 times per week Estimated Hrs Per Day: .25 hour per day Patient and/or Family Agrees t: Yes Safety Risks/Education Patient Education: Transfer Techniques Teaching Recipient: Patient, Family Teaching Methods: Demonstration, Discussion Response to Teaching: Reinforcement Needed Time/GCodes Time In: 1300 Time Out: 1326 Total Billed Treatment Time: 26 Total Billed Treatment Visit, FA (2) JULIA POLO PT Dec 23, 2021 13:37
--- NOTE | 2021-12-23 15:21 | Progress Note - Hospitalist ---
Subjective HPI/CC On Admission Date Seen by Provider: Dec 23, 2021 Time Seen by Provider: 10:10 Patient is an 86-year-old female past medical history of hypertension, dementia, neuropathy who presented to the emergency department due to altered mental status after a fall. She is unable to tell me what brought her to the [facility]. She was surprised that that she was sick and also seems surprised that she was in the hospital. Per ER note she was talking with the nurse and then 30 minutes later was found down by the staff at her [facility]. They were concerned that she had "word salad "and decided to bring her in for evaluation. On arrival to the emergency department she was objectively short of breath and was wheezing. She was also found to be febrile. She was placed on BiPAP due to her work of breathing. She was found to have likely pneumonia and was to be admitted to [facility] but after antibiotics became hypotensive and pressors were needed. She was admitted to the ICU. She remains on pressors at this time but reports feeling better and has no complaints. After further discussion though she does endorse a history of hacking cough for the past week. Subjective/Events-last exam She is laying in bed. She is feeling weak. She denies shortness of breath. She is having some spasms in her right leg. Her daughter is at the bedside. Focused Exam Time of Focused Exam: 01:00 Objective Exam Vital Signs Vital Signs Date Time Temp Pulse Resp B/P (MAP) Pulse Ox O2 Delivery O2 Flow Rate FiO2 12/23/21 16:09 36.2 12/23/21 16:00 102 15 115/75 97 Nasal Cannula 2.00 12/22/21 12:00 Capillary Refill : Less Than 3 Seconds General Appearance: No Apparent Distress, Obese Respiratory: Lungs Clear, No Respiratory Distress Cardiovascular: No Murmur, Irregularly Irregular Gastrointestinal: Normal Bowel Sounds, Non Tender, Soft Extremity: Normal Inspection, No Pedal Edema Neurologic/Psychiatric: Alert, Normal Mood/Affect Skin: Normal Color, Warm/Dry Results/Procedures Lab Laboratory Tests 12/23/21 03:30 Patient resulted labs reviewed. Imaging: Reviewed Imaging Report Assessment/Plan Assessment and Plan Assess & Plan/Chief Complaint A-fib with RVR Cardiomyopathy New onset Amiodarone gtt Lovenox for stroke ppx Echo reveals EF of 30% Continue lasix Cardiology following Septic Shock due to pneumonia Acute respiratory failure NGTD on cultures Continue Cefepime Pressors as needed BiPAP HS and prn HTN BP low with cardizem gtt and was back on pressors overnight Hold home BP meds for this Neuropathy Dementia Anxiety fibromyalgia Continue home meds Debility Super obesity PT/OT DVT ppx: Lovenox Critical Care Critically Ill Patient Diagnosis/Problems Diagnosis/Problems (1) Septic shock Status: Acute (2) PNA (pneumonia) Status: Acute (3) Atrial fibrillation with RVR Status: Acute (4) Super obesity Status: Chronic LOLA BAI MD Dec 23, 2021 15:21
[2021-12-23] MEDS: PRAMIPEXOLE 0.5 MG TAB (MIRAPEX) PO SCH (16:21)
[2021-12-23] MEDS: DONEPEZIL 10 MG (ARICEPT) TAB PO SCH (16:21)
[2021-12-23] MEDS: AMITRIPTYLINE 25 MG (ELAVIL) TAB PO SCH (16:21)
[2021-12-24] MEDS: NOREPINEPHRINE 8 MG/250 ML 250 ML IV SCH ×2 (05:20→13:31)
[2021-12-24 05:44] LABS: ALBUMIN 2.5 GM/DL (3.2-4.5)
[2021-12-24 05:45] LABS: BASOPHILS % (AUTO) 0 % (0-10); CALCIUM 9.2 MG/DL (8.5-10.1); EOSINOPHILS # (AUTO) 0.1 10^3/uL (0.0-0.3); EOSINOPHILS % (AUTO) 0 % (0-10); HEMATOCRIT 26 % (35-52); HEMOGLOBIN 8.3 g/dL (11.5-16.0); LYMPHOCYTES # (AUTO) 3.4 X 10^3 (1.0-4.0); LYMPHOCYTES % (AUTO) 29 % (12-44); MEAN CORPUSCULAR HEMOGLOBIN 35 pg (25-34); MEAN CORPUSCULAR HGB CONC 32 g/dL (32-36); MEAN CORPUSCULAR VOLUME 108 fL (80-99); MEAN PLATELET VOLUME 10.5 fL (9.0-12.2); MONOCYTES # (AUTO) 0.9 X 10^3 (0.0-1.0); MONOCYTES % (AUTO) 8 % (0-12); NEUTROPHILS % (AUTO) 61 % (42-75); PLATELET COUNT 294 10^3/uL (130-400); WHITE BLOOD COUNT 11.5 10^3/uL (4.3-11.0)
[2021-12-24 05:46] LABS: TOTAL PROTEIN 6.6 GM/DL (6.4-8.2)
[2021-12-24 05:48] LABS: BILIRUBIN,TOTAL 0.4 MG/DL (0.1-1.0)
[2021-12-24 05:50] LABS: CREATININE SERUM 0.81 MG/DL (0.60-1.30); PHOSPHORUS 2.4 MG/DL (2.3-4.7)
[2021-12-24 05:53] LABS: MAGNESIUM 1.8 MG/DL (1.6-2.4)
[2021-12-24] MEDS: POTASSIUM CL 10MEQ/50ML IVPB 50 ML IV SCH (06:06)
[2021-12-24] MEDS: KCL 20 MEQ TAB (K-DUR) PO SCH (06:06)
[2021-12-24] MEDS: MAGNESIUM 1 GM/100 ML IVPB 100 ML IV SCH (06:06)
[2021-12-24] MEDS: RT-ALBUTEROL/IPRATROPIUM 3 ML (DUONEB) VIAL INH SCH ×3 (06:47→21:49)
[2021-12-24] MEDS: busPIRone 5 MG (BUSPAR) TAB PO SCH ×3 (08:41→21:33)
[2021-12-24] MEDS: meTOproloL SUCCINATE 50 MG (TOPROL XL) TAB PO SCH (08:42)
[2021-12-24] MEDS: PANTOPRAZOLE 40 MG (PROTONIX) TAB PO SCH (08:42)
[2021-12-24] MEDS: GABAPENTIN 300 MG (NEURONTIN) CAP PO SCH ×2 (08:42→17:43)
[2021-12-24] MEDS: APIXABAN 5 MG (ELIQUIS) TABLET PO SCH ×2 (08:42→21:34)
[2021-12-24] MEDS: CYCLOBENZAPRINE 10 MG (FLEXERIL) TAB PO SCH ×2 (08:42→17:43)
[2021-12-24] MEDS: AMIODARONE 200 MG (CORDARONE) TAB PO SCH ×2 (08:42→21:33)
[2021-12-24] MEDS: DOCUSATE SODIUM 100 MG (COLACE) CAP PO SCH ×2 (08:42→21:33)
[2021-12-24] MEDS: DULoxetine 30 MG (CYMBALTA) CAP PO SCH (08:42)
--- NOTE | 2021-12-24 08:46 | Cardiology Progress Note ---
Progress Note-Cardiology Events since last exam Date Seen by Provider: Dec 24, 2021 Time Seen by Provider: 08:43 Events since last exam I am following her due to heart failure with reduced ejection fraction and at rial fibrillation. She remains in the intensive care unit. She was weaned off norepinephrine infusion overnight. She is awake but confused. She denies chest discomfort, dyspnea, palpitations, syncope, or ankle edema. However, I am not certain she understood my questions. The nursing staff has been intermittently able to get the patient to take oral medication. She has not been awake or aler t enough to swallow pills at times. Certain portions of this document may have been dictated utilizing voice recognition technology. Inherent to this technology, typographical and grammatical errors may exist. As much as I am diligent to identify and correct these mistakes, some errors may remain in the document. Vitals Last set of Vitals Signs Vital Signs 12/22/21 12/24/21 12/24/21 12/24/21 12/24/21 08:00 06:00 06:48 07:00 08:00 Temp 36.0 Pulse 99 Resp 17 B/P (MAP) 124/87 Pulse Ox 97 O2 Delivery Nasal Cannula O2 Flow Rate 2.00 FiO2 28 Labs Labs Laboratory Tests 12/24/21 04:30 Exam Vital Signs Vital Signs Date Time Temp Pulse Resp B/P (MAP) Pulse Ox O2 Delivery O2 Flow Rate FiO2 12/24/21 08:00 36.0 12/24/21 07:00 99 12/24/21 06:48 97 Nasal Cannula 2.00 12/24/21 06:00 17 124/87 12/22/21 12:00 Physical Exam General: Alert but confused. No acute distress. She is obese. Eye: No xanthelasma. HENT: Normocephalic. Neck: Jugular venous pressure does not appear elevated. Respiratory: Lungs are clear to auscultation but decreased at the bases bilaterally. Respirations are non-labored. Breath sounds are equal. Symmetrical chest wall expansion. Cardiovascular: Tachycardia with irregular rhythm. Distant S1/S2. No murmur. No gallop. 2+ bilateral pretibial edema. Gastrointestinal: Soft. Normal bowel sounds. Skin: Warm. Dry. Neurologic: Awake and oriented to person only. Cranial nerves 3-11 grossly intact. Psychiatric: Cooperative. Obvious short-term memory loss. Labs Laboratory Tests Test 12/24/21 04:30 Range/Units White Blood Count 11.5 H 4.3-11.0 10^3/uL Red Blood Count 2.38 L 3.80-5.11 10^6/uL Hemoglobin 8.3 L 11.5-16.0 g/dL Hematocrit 26 L 35-52 % Mean Corpuscular Volume 108 H 80-99 fL Mean Corpuscular Hemoglobin 35 H 25-34 pg Mean Corpuscular Hemoglobin Concent 32 32-36 g/dL Red Cell Distribution Width 15.5 H 10.0-14.5 % Platelet Count 294 130-400 10^3/uL Mean Platelet Volume 10.5 9.0-12.2 fL Immature Granulocyte % (Auto) 1 % Neutrophils (%) (Auto) 61 42-75 % Lymphocytes (%) (Auto) 29 12-44 % Monocytes (%) (Auto) 8 0-12 % Eosinophils (%) (Auto) 0 0-10 % Basophils (%) (Auto) 0 0-10 % Neutrophils # (Auto) 7.0 1.8-7.8 X 10^3 Lymphocytes # (Auto) 3.4 1.0-4.0 X 10^3 Monocytes # (Auto) 0.9 0.0-1.0 X 10^3 Eosinophils # (Auto) 0.1 0.0-0.3 10^3/uL Basophils # (Auto) 0.0 0.0-0.1 10^3/uL Immature Granulocyte # (Auto) 0.1 0.0-0.1 10^3/uL Sodium Level 134 L 135-145 MMOL/L Potassium Level 4.0 3.6-5.0 MMOL/L Chloride Level 103 98-107 MMOL/L Carbon Dioxide Level 23 21-32 MMOL/L Anion Gap 8 5-14 MMOL/L Blood Urea Nitrogen 19 H 7-18 MG/DL Creatinine 0.81 0.60-1.30 MG/DL Estimat Glomerular Filtration Rate 71 BUN/Creatinine Ratio 23 Glucose Level 95 70-105 MG/DL Calcium Level 9.2 8.5-10.1 MG/DL Corrected Calcium 10.4 H 8.5-10.1 MG/DL Phosphorus Level 2.4 2.3-4.7 MG/DL Magnesium Level 1.8 1.6-2.4 MG/DL Total Bilirubin 0.4 0.1-1.0 MG/DL Aspartate Amino Transf (AST/SGOT) 69 H 5-34 U/L Alanine Aminotransferase (ALT/SGPT) 26 0-55 U/L Alkaline Phosphatase 136 40-136 U/L Total Protein 6.6 6.4-8.2 GM/DL Albumin 2.5 L 3.2-4.5 GM/DL Diagnosis/Problems Diagnosis/Problems (1) Paroxysmal atrial fibrillation Assessment & Plan: She has developed atrial fibrillation with a rapid ventricular rate while here in the hospital. I do not see any mention of atrial fibrillation in her previous hospital records although she does have mild biatrial enlargement which is suggestive of possible previous history of atrial fibrillation. She was given 1 dose of metoprolol succinate on 12/21 and another dose on 12/22. I had lowered the dose to low blood pressure. I started her on apixaban 5 mg twice daily on 12/22. Although she is over the age of 81, her weight is above 60 kg and creatinine below 1.5 and therefore, there is no indication to decrease the dose apixaban. I started her on oral amiodarone on 12/22 but she still has atrial fibrillation with intermittent rapid ventricular rates. I recommend she remain on intravenous amiodarone infusion until the next bag finishes. Her heart rates did improve with the amiodarone infusion. (2) Acute HFrEF (heart failure with reduced ejection fraction) Assessment & Plan: This appears to be a new finding in the patient. She was on a low-dose of oral furosemide at home. I changed this over to intravenous furosemide 40 mg daily on 12/21. I started her on low-dose metoprolol succinate at this will need to be intermittently held until her blood pressure improves. Due to her borderline low blood pressure and chronic kidney disease, I will hold off on adding any of the other guideline directed medications at this point in time. Her intravenous furosemide was also discontinued on 12/23 due to low blood pressures. I will obtain a follow-up chest x-ray today. (3) Cardiomyopathy Assessment & Plan: She had no previous echocardiogram in our system. Exact etiology of the cardiomyopathy is unclear. Given her advanced age and dementia coupled with chronic kidney disease, she would not be an ideal candidate for an invasive ischemic evaluation. We will attempt to manage her with conservative medical therapy. I started her on guideline directed medical therapy as outlined above. However, this has intermittently been on hold due to low blood pressures and also difficulty swallowing. Given her advanced age and dementia, she would not be a good candidate for prophylactic defibrillator implantation and therefore, there would be no reason to prescribe a LifeVest. (4) Pulmonary hypertension Assessment & Plan: This is in a mild range on her echocardiogram. I suspect this may be related to the pneumonia and heart failure. (5) Primary hypertension Assessment & Plan: The medication reconciliation indicates that she may have been taking lisinopril and propranolol at home. I started her on metoprolol succinate due to the cardiomyopathy, atrial fibrillation and heart failure as outlined above. If she tolerates this, then we could consider restarting low- dose JIM inhibitor. However, as above, she has been having difficulty sw allowing pills and has also had low blood pressures. (6) Macrocytic anemia Assessment & Plan: I could not find any old laboratory results in our computer system. Unknown whether or not the anemia is an acute or chronic problem for the patient. This is not necessarily a contraindication to oral anticoagulation. (7) Left bundle branch block Assessment & Plan: I did find an old electrocardiogram from a prior admission and the left bundle branch block appears to be chronic. (8) Acute respiratory failure with hypoxemia Assessment & Plan: Most likely due to the combination of pneumonia and heart failure. (9) Septic shock Status: Acute Assessment & Plan: She had required vasopressors earlier during her hospitalization and she has been developing recurrent shock requiring vasopressors. (10) Acute kidney injury superimposed on chronic kidney disease Assessment & Plan: I reviewed labs from January 2021 and at that time she had stage III chronic kidney disease. At the time of this admission her creatinine level was slightly higher but now seems to have gone back to its baseline. We will need to be cautious with any medication that could affect her kidney function. (11) Morbid obesity Assessment & Plan: I would suggest limiting her caloric intake. (12) Dementia Assessment & Plan: We need to keep this condition in mind when considering long-term treatment and goals. Problem Qualifiers (1) Dementia: Dementia type: unspecified type Dementia behavioral disturbance: without b ehavioral disturbance Qualified Codes: F03.90 - Unspecified dementia without behavioral disturbance LUCERO WHITE JR, MD Dec 24, 2021 08:46
[2021-12-24] MEDS: dilTIAZem DRIP PRE-MIX 125 ML IV SCH (08:47)
--- NOTE | 2021-12-24 09:20 | Diagnostic Imaging Report ---
EXAMINATION: Chest 1 view HISTORY: Heart failure. COMPARISON: 12/22/2021 FINDINGS: Stable enlargement of the cardiac silhouette. Stable diffuse interstitial opacities seen throughout the lungs. No pleural effusion or pneumothorax. A right-sided PICC line is unchanged. Degenerative changes of the thoracic spine. Osseous structures are otherwise intact. IMPRESSION: 1. Stable cardiomegaly and diffuse interstitial opacities throughout the lungs compared to 12/22/2021. Dictated by: Dictated on workstation # [id number]
--- NOTE | 2021-12-24 09:39 | Physical Therapy Progress Note ---
Therapy Progress Note Patient on Hold per RN due to decline in status. Will recheck tomorrow. NANCY DOYLE PT Dec 24, 2021 09:39
[2021-12-24] MEDS: AMIODARONE INJECTION 450 MG in D5W IV SOLUTION (EXCEL) 250 ML IV SCH (09:59)
[2021-12-24] MEDS: DONEPEZIL 10 MG (ARICEPT) TAB PO SCH (17:43)
[2021-12-24] MEDS: PRAMIPEXOLE 0.5 MG TAB (MIRAPEX) PO SCH (17:43)
[2021-12-24] MEDS: AMITRIPTYLINE 25 MG (ELAVIL) TAB PO SCH (17:45)
[2021-12-24] MEDS ORDERED: AMIODARONE INJECTION 450 MG in D5W IV SOLUTION (EXCEL) 250 ML IV SCH (21:15)
--- NOTE | 2021-12-24 21:53 | Progress Note - Hospitalist ---
Subjective HPI/CC On Admission Date Seen by Provider: Dec 24, 2021 Time Seen by Provider: 09:20 Patient is an 86-year-old female past medical history of hypertension, dementia, neuropathy who presented to the emergency department due to altered mental status after a fall. She is unable to tell me what brought her to the [facility]. She was surprised that that she was sick and also seems surprised that she was in the hospital. Per ER note she was talking with the nurse and then 30 minutes later was found down by the staff at [facility]. They were concerned that she had "word salad "and decided to bring her in for evaluation. On arrival to the emergency department she was objectively short of breath and was wheezing. She was also found to be febrile. She was placed on BiPAP due to her work of breathing. She was found to have likely pneumonia and was to be admitted to [facility] but after antibiotics became hypotensive and pressors were needed. She was admitted to the ICU. She remains on pressors at this time but reports feeling better and has no complaints. After further discussion though she does endorse a history of hacking cough for the past week. Subjective/Events-last exam She remains a bit confused. She is not having pain today. She denies shortness of breath. Focused Exam Time of Focused Exam: 01:00 Objective Exam Vital Signs Vital Signs Date Time Temp Pulse Resp B/P (MAP) Pulse Ox O2 Delivery O2 Flow Rate FiO2 12/24/21 21:49 98 Nasal Cannula 2.00 12/24/21 19:00 115 12/24/21 18:00 20 106/84 12/24/21 16:10 36.2 12/22/21 12:00 Capillary Refill : Less Than 3 Seconds General Appearance: No Apparent Distress, Obese Respiratory: No Respiratory Distress, Decreased Breath Sounds Cardiovascular: No Murmur, Irregularly Irregular, Tachycardia Gastrointestinal: Normal Bowel Sounds, Soft Extremity: Normal Inspection, Pedal Edema Neurologic/Psychiatric: Alert, Disoriented Results/Procedures Lab Laboratory Tests 12/24/21 04:30 Patient resulted labs reviewed. Imaging: Reviewed Imaging Report Assessment/Plan Assessment and Plan Assess & Plan/Chief Complaint A-fib with RVR Cardiomyopathy New onset Continue Amiodarone gtt Lovenox for stroke ppx Echo reveals EF of 30% Continue lasix Cardiology following Septic Shock due to pneumonia Acute respiratory failure NGTD on cultures Continue Cefepime Off pressors BiPAP HS and prn HTN Hold home BP meds for this Neuropathy Dementia Anxiety fibromyalgia Continue home meds Debility Super obesity PT/OT DVT ppx: Lovenox Critical Care Critically Ill Patient Diagnosis/Problems Diagnosis/Problems (1) Septic shock Status: Acute (2) PNA (pneumonia) Status: Acute (3) Atrial fibrillation with RVR Status: Acute (4) Super obesity Status: Chronic LOLA BAI MD Dec 24, 2021 21:53
[2021-12-25] MEDS: NOREPINEPHRINE 8 MG/250 ML 250 ML IV SCH ×2 (02:45→14:44)
[2021-12-25 03:42] LABS: BASOPHILS # (AUTO) 0.1 10^3/uL (0.0-0.1); BASOPHILS % (AUTO) 0 % (0-10); EOSINOPHILS # (AUTO) 0.1 10^3/uL (0.0-0.3); EOSINOPHILS % (AUTO) 0 % (0-10); HEMATOCRIT 28 % (35-52); HEMOGLOBIN 8.9 g/dL (11.5-16.0); LYMPHOCYTES # (AUTO) 5.2 10^3/uL (1.0-4.0); LYMPHOCYTES % (AUTO) 37 % (12-44); MEAN CORPUSCULAR HEMOGLOBIN 35 pg (25-34); MEAN CORPUSCULAR HGB CONC 32 g/dL (32-36); MEAN CORPUSCULAR VOLUME 108 fL (80-99); MEAN PLATELET VOLUME 10.5 fL (9.0-12.2); MONOCYTES # (AUTO) 0.7 10^3/uL (0.0-1.0); MONOCYTES % (AUTO) 5 % (0-12); NEUTROPHILS # (AUTO) 7.9 10^3/uL (1.8-7.8); NEUTROPHILS % (AUTO) 57 % (42-75); PLATELET COUNT 346 10^3/uL (130-400)
[2021-12-25 03:56] LABS: ALBUMIN 2.6 GM/DL (3.2-4.5); POTASSIUM 4.6 MMOL/L (3.6-5.0)
[2021-12-25 03:57] LABS: CALCIUM 9.6 MG/DL (8.5-10.1)
[2021-12-25 03:59] LABS: TOTAL PROTEIN 7.2 GM/DL (6.4-8.2)
[2021-12-25 04:00] LABS: BILIRUBIN,TOTAL 0.4 MG/DL (0.1-1.0)
[2021-12-25 04:02] LABS: CREATININE SERUM 0.92 MG/DL (0.60-1.30); PHOSPHORUS 2.5 MG/DL (2.3-4.7)
[2021-12-25 04:05] LABS: MAGNESIUM 1.8 MG/DL (1.6-2.4)
[2021-12-25] MEDS: MAGNESIUM 1 GM/100 ML IVPB 100 ML IV SCH (05:46)
[2021-12-25] MEDS: POTASSIUM CL 10MEQ/50ML IVPB 50 ML IV SCH (05:46)
[2021-12-25] MEDS: KCL 20 MEQ TAB (K-DUR) PO SCH (05:47)
--- NOTE | 2021-12-25 08:32 | Cardiology Progress Note ---
Progress Note-Cardiology Events since last exam Date Seen by Provider: Dec 25, 2021 Time Seen by Provider: 08:27 Events since last exam I am following her due to atrial fibrillation and heart failure with reduced ejection fraction. She remains in the intensive care unit. Last night she could not swallow pills and did not take her oral amiodarone. I asked the nurse to continue the intravenous amiodarone infusion. There is a family meeting later this morning to discuss goals of care. The patient states she is having back pain. She denies chest pain, dyspnea, palpitations, or syncope. She has mild bilateral ankle edema. However, her answers may not be reliable due to her dementia. Certain portions of this document may have been dictated utilizing voice recognition technology. Inherent to this technology, typographical and grammatical errors may exist. As much as I am diligent to identify and correct these mistakes, some errors may remain in the document. Vitals Last set of Vitals Signs Vital Signs 12/22/21 12/25/21 12/25/21 08:00 08:00 12:00 Temp 36.0 Pulse 112 Resp 32 B/P (MAP) 123/95 Pulse Ox 97 O2 Delivery Nasal Cannula O2 Flow Rate 2.00 FiO2 28 Labs Labs Laboratory Tests 12/25/21 03:15 Exam Vital Signs Vital Signs Date Time Temp Pulse Resp B/P (MAP) Pulse Ox O2 Delivery O2 Flow Rate FiO2 12/25/21 12:00 112 32 123/95 97 Nasal Cannula 2.00 12/25/21 08:00 36.0 12/22/21 12:00 Physical Exam General: Alert but confused. No acute distress. She is obese. Eye: No xanthelasma. HENT: Normocephalic. Neck: Jugular venous pressure does not appear elevated. Respiratory: Lungs have coarse upper airway sounds versus rhonchi or both. Respirations are non-labored. Breath sounds are equal. Symmetrical chest wall expansion. Cardiovascular: Tachycardia with irregular rhythm. Distant S1/S2. No murmur. No gallop. 1+ bilateral pretibial edema. Gastrointestinal: Soft. Normal bowel sounds. Skin: Warm. Dry. Neurologic: Awake and oriented to person only. Cranial nerves 3-11 grossly intact. Psychiatric: Cooperative. Obvious short-term memory loss. Labs Laboratory Tests Test 12/25/21 03:15 Range/Units White Blood Count 14.0 H 4.3-11.0 10^3/uL Red Blood Count 2.54 L 3.80-5.11 10^6/uL Hemoglobin 8.9 L 11.5-16.0 g/dL Hematocrit 28 L 35-52 % Mean Corpuscular Volume 108 H 80-99 fL Mean Corpuscular Hemoglobin 35 H 25-34 pg Mean Corpuscular Hemoglobin Concent 32 32-36 g/dL Red Cell Distribution Width 15.5 H 10.0-14.5 % Platelet Count 346 130-400 10^3/uL Mean Platelet Volume 10.5 9.0-12.2 fL Immature Granulocyte % (Auto) 1 % Neutrophils (%) (Auto) 57 42-75 % Lymphocytes (%) (Auto) 37 12-44 % Monocytes (%) (Auto) 5 0-12 % Eosinophils (%) (Auto) 0 0-10 % Basophils (%) (Auto) 0 0-10 % Neutrophils # (Auto) 7.9 H 1.8-7.8 10^3/uL Lymphocytes # (Auto) 5.2 H 1.0-4.0 10^3/uL Monocytes # (Auto) 0.7 0.0-1.0 10^3/uL Eosinophils # (Auto) 0.1 0.0-0.3 10^3/uL Basophils # (Auto) 0.1 0.0-0.1 10^3/uL Immature Granulocyte # (Auto) 0.1 0.0-0.1 10^3/uL Sodium Level 133 L 135-145 MMOL/L Potassium Level 4.6 3.6-5.0 MMOL/L Chloride Level 101 98-107 MMOL/L Carbon Dioxide Level 23 21-32 MMOL/L Anion Gap 9 5-14 MMOL/L Blood Urea Nitrogen 21 H 7-18 MG/DL Creatinine 0.92 0.60-1.30 MG/DL Estimat Glomerular Filtration Rate 61 BUN/Creatinine Ratio 23 Glucose Level 103 70-105 MG/DL Calcium Level 9.6 8.5-10.1 MG/DL Corrected Calcium 10.7 H 8.5-10.1 MG/DL Phosphorus Level 2.5 2.3-4.7 MG/DL Magnesium Level 1.8 1.6-2.4 MG/DL Total Bilirubin 0.4 0.1-1.0 MG/DL Aspartate Amino Transf (AST/SGOT) 260 H 5-34 U/L Alanine Aminotransferase (ALT/SGPT) 85 H 0-55 U/L Alkaline Phosphatase 148 H 40-136 U/L Total Protein 7.2 6.4-8.2 GM/DL Albumin 2.6 L 3.2-4.5 GM/DL Diagnosis/Problems Diagnosis/Problems (1) Paroxysmal atrial fibrillation Assessment & Plan: She has developed atrial fibrillation with a rapid ventricular rate while here in the hospital. I do not see any mention of atrial fibrillation in her previous hospital records although she does have mild biatrial enlargement which is suggestive of possible previous history of atrial fibrillation. She was given 1 dose of metoprolol succinate on 12/21 and another dose on 12/22. I had lowered the dose to low blood pressure. I started her on apixaban 5 mg twice daily on 12/22. Although she is over the age of 81, her weight is above 60 kg and creatinine below 1.5 and therefore, there is no indication to decrease the dose apixaban. I started her on oral amiodarone on 12/22 but she still has atrial fibrillation with intermittent rapid ventricular rates. I recommend she remain on intravenous amiodarone infusion until the next bag finishes. Her heart rates did improve with the amiodarone infusion. The family will need to make a decision about treatment for the atrial fibrillation if she cannot take oral medication. Options would include comfort care versus a PEG. One family member was at the bedside who does not think the patient would want a PEG. (2) Acute HFrEF (heart failure with reduced ejection fraction) Assessment & Plan: This appears to be a new finding in the patient. She was on a low-dose of oral furosemide at home. I changed this over to intravenous furosemide 40 mg daily on 12/21. I started her on low-dose metoprolol succinate at this will need to be intermittently held until her blood pressure improves. Due to her borderline low blood pressure and chronic kidney disease, I will hold off on adding any of the other guideline directed medications at this point in time. Her blood pressure has improved and renal function has been stable. Until she has a swallow evaluation, oral medications have been on hold. (3) Cardiomyopathy Assessment & Plan: She had no previous echocardiogram in our system. Her echocardiogram from this admission shows moderate systolic dysfunction with an estimated ejection fraction of 30-35%. Exact etiology of the cardiomyopathy is unclear. Given her advanced age and dementia coupled with chronic kidney disease, she would not be an ideal candidate for an invasive ischemic evaluation. We will attempt to manage her with conservative medical therapy. I started her on guideline directed medical therapy as outlined above. However, this has intermittently been on hold due to low blood pressures and also diffic ulty swallowing. Given her advanced age and dementia, she would not be a good candidate for prophylactic defibrillator implantation and therefore, there would be no reason to prescribe a LifeVest. (4) Pulmonary hypertension Assessment & Plan: This is in a mild range on her echocardiogram. I suspect this may be related to the pneumonia and heart failure. (5) Primary hypertension Assessment & Plan: The medication reconciliation indicates that she may have been taking lisinopril and propranolol at home. I started her on metoprolol succinate due to the cardiomyopathy, atrial fibrillation and heart failure as outlined above. If she tolerates this, then we could consider restarting low- dose JIM inhibitor. However, as above, she has been having difficulty swallowing pills and has also had low blood pressures. (6) Macrocytic anemia Assessment & Plan: I could not find any old laboratory results in our computer system. Unknown whether or not the anemia is an acute or chronic problem for the patient. This is not necessarily a contraindication to oral ant icoagulation. (7) Left bundle branch block Assessment & Plan: I did find an old electrocardiogram from a prior admission and the left bundle branch block appears to be chronic. (8) Acute respiratory failure with hypoxemia Assessment & Plan: Most likely due to the combination of pneumonia and heart failure. (9) Septic shock Status: Acute Assessment & Plan: She had required vasopressors earlier during her hospitalization and she has been developing recurrent shock requiring vasopressors. (10) Acute kidney injury superimposed on chronic kidney disease Assessment & Plan: I reviewed labs from January 2021 and at that time she had stage III chronic kidney disease. At the time of this admission her creatinine level was slightly higher but now seems to have gone back to its baseline. We will need to be cautious with any medication that could affect her kidney function. (11) Morbid obesity Assessment & Plan: I would suggest limiting her caloric intake. (12) Dementia Assessment & Plan: We need to keep this condition in mind when considering long-term treatment and goals. Problem Qualifiers (1) Dementia: Dementia type: unspecified type Dementia behavioral disturbance: without behavioral disturbance Qualified Codes: F03.90 - Unspecified dementia without behavioral disturbance LUCERO WHITE JR, MD Dec 25, 2021 08:32
[2021-12-25] MEDS ORDERED: FUROSEMIDE 40 MG/4 ML INJ (LASIX) IVP ONE (08:45)
--- NOTE | 2021-12-25 08:55 | Physical Therapy Progress Note ---
Therapy Progress Note Patient on hold this morning. Nurse states patient is still in critical condition but patient's family would like for patient to have physical therapy. Will check back in the afternoon. DEBO ORTIZ PT Dec 25, 2021 08:55
--- NOTE | 2021-12-25 10:22 | Tele-ICU Progress Note ---
Subjective Date Seen by a Provider: Dec 25, 2021 Time Seen by a Provider: 10:22 Subjective/Events-last exam (Tele-ICU Physician , Progress Note ) Available chart/ vitals / labs / Images reviewed Video assessment done using teleICU camera, rest of exam as per RN Discussed with RN , EXAM PER RN Events overnight : Afebrile FiO2 - 2l I/O = neg 500 Drips: Pressors: , hemodynamically stable Consultants: cards A/P 1. Possible sepsis with altered mental status some what improved 2. Hypotension , OFF levo 3. Morbid obesity contributing to her respiratory distress 4. Acute hypoxic respiratory failure secondary to pneumonia and sepsis , OFF BiPAP ventilation. 5. Anxiety disorder., OFF precedex 6. Super morbid obesity with underlying osteoarthritis causing unsteady gait. 7. new onset afib on amiodorone. 8. chf with reduced EF Recommendations -oxygenate with n/c - IV antibiotics -Apixaban po. amiodorone per cardiology - swallow eval Lines : (Central Line Necessity Reviewed) Nutrition: Analgesia: Anxiety/ delirium VTE Prophylaxis: eliquis Stress Ulcer Prophylaxis: ppi Plans in collaboration with bedside consultants and IM MDs. Discussed with RN to reach out if any questions or concerns A total of 25 minutes of critical care time was devoted to this patient today, required to treat and/or prevent further deterioration of critical care condition ( as above) . Sepsis Event Evaluation Height, Weight, BMI Height: '" Weight: lbs. oz. kg; 51.61 BMI Method: Focused Exam Time of Focused Exam: 01:00 Exam Exam Patient acknowledged, consented, and participated in this virtual visit which was conducted using real time audio/video Vital Signs Date Time Temp Pulse Resp B/P (MAP) Pulse Ox O2 Delivery O2 Flow Rate FiO2 12/25/21 10:00 100 103/83 96 Nasal Cannula 2.00 12/25/21 09:00 109 28 129/75 96 Nasal Cannula 2.00 12/25/21 08:00 94 Nasal Cannula 2.00 12/25/21 08:00 105 20 142/91 96 Nasal Cannula 2.00 12/25/21 08:00 36.0 12/25/21 07:00 120 36 146/100 95 Nasal Cannula 2.00 12/25/21 06:36 101 12/25/21 06:00 110 18 122/113 95 Nasal Cannula 2.00 12/25/21 05:00 94 111/78 95 Nasal Cannula 2.00 12/25/21 04:00 112 103/88 94 Nasal Cannula 2.00 12/25/21 03:47 94 Nasal Cannula 2.00 12/25/21 03:00 102 29 118/83 94 Nasal Cannula 2.00 12/25/21 02:00 99 32 120/79 97 Nasal Cannula 2.00 12/25/21 01:00 115 12/25/21 01:00 111 27 110/75 96 Nasal Cannula 2.00 12/25/21 00:00 104 100/86 95 Nasal Cannula 2.00 12/24/21 23:57 94 Nasal Cannula 2.00 12/24/21 23:00 101 110/87 97 Nasal Cannula 2.00 12/24/21 22:00 101 103/64 95 Nasal Cannula 2.00 12/24/21 21:49 98 Nasal Cannula 2.00 12/24/21 21:00 98 22 114/66 97 Nasal Cannula 2.00 12/24/21 20:00 94 Nasal Cannula 2.00 12/24/21 20:00 101 22 120/74 97 Nasal Cannula 2.00 12/24/21 19:00 115 12/24/21 19:00 102 21 118/77 96 Nasal Cannula 2.00 12/24/21 18:00 100 20 106/84 96 Nasal Cannula 2.00 12/24/21 17:00 109 18 109/92 97 Nasal Cannula 2.00 12/24/21 16:10 36.2 12/24/21 16:00 101 19 117/83 95 Nasal Cannula 2.00 12/24/21 15:19 94 Nasal Cannula 2.00 12/24/21 15:14 97 Nasal Cannula 2.00 12/24/21 15:00 109 18 102/80 97 Nasal Cannula 2.00 12/24/21 14:00 99 16 115/82 97 Nasal Cannula 2.00 12/24/21 13:00 105 18 103/74 97 Nasal Cannula 2.00 12/24/21 13:00 105 12/24/21 12:00 95 Nasal Cannula 2.00 12/24/21 12:00 104 20 108/76 97 Nasal Cannula 2.00 12/24/21 12:00 36.3 12/24/21 11:00 101 18 118/87 96 Nasal Cannula 2.00 I & O 12/25/21 07:00 Intake Total 749 ml Output Total 1200 ml Balance -451 ml Height & Weight Height: '" Weight: lbs. oz. kg; 51.61 BMI Method: General Appearance: Anxious, Chronically ill, Obese HEENT: PERRL/EOMI, Moist Mucous Membranes; No Scleral Icterus (L), No Scleral Icterus (R) Neck: Normal Inspection, Supple Respiratory: Decreased Breath Sounds, Other (on BiPAP) Cardiovascular: Regular Rate, Rhythm, No Murmur Capillary Refill: Less Than 3 Seconds Peripheral Pulses: 1+ Radial Pulses (R), 1+ Radial Pulses (L) Gastrointestinal: normal bowel sounds, non tender, soft Extremity: Normal Capillary Refill, No Calf Tenderness, No Pedal Edema Neurologic/Psychiatric: Alert Skin: Normal Color, Warm/Dry Results Lab Laboratory Tests 12/24/21 04:30 12/25/21 03:15 Assessment/Plan Assessment/Plan 1 RAMY TANNER MD Dec 25, 2021 10:22
[2021-12-25] MEDS: RT-ALBUTEROL/IPRATROPIUM 3 ML (DUONEB) VIAL INH SCH ×3 (10:38→18:44)
[2021-12-25] MEDS: AMIODARONE 200 MG (CORDARONE) TAB PO SCH ×2 (12:07→20:00)
[2021-12-25] MEDS: GABAPENTIN 300 MG (NEURONTIN) CAP PO SCH ×2 (12:07→16:00)
[2021-12-25] MEDS: DOCUSATE SODIUM 100 MG (COLACE) CAP PO SCH ×2 (12:07→20:00)
[2021-12-25] MEDS: CYCLOBENZAPRINE 10 MG (FLEXERIL) TAB PO SCH ×2 (12:07→13:53)
[2021-12-25] MEDS: busPIRone 5 MG (BUSPAR) TAB PO SCH ×3 (12:07→20:00)
[2021-12-25] MEDS: meTOproloL SUCCINATE 50 MG (TOPROL XL) TAB PO SCH (12:08)
[2021-12-25] MEDS: APIXABAN 5 MG (ELIQUIS) TABLET PO SCH ×2 (12:08→20:00)
[2021-12-25] MEDS: PANTOPRAZOLE 40 MG (PROTONIX) TAB PO SCH (12:08)
[2021-12-25] MEDS: DULoxetine 30 MG (CYMBALTA) CAP PO SCH (12:08)
[2021-12-25] MEDS: dilTIAZem DRIP PRE-MIX 125 ML IV SCH (12:08)
[2021-12-25] MEDS ORDERED: FUROSEMIDE 40 MG/4 ML INJ (LASIX) ONE (12:09)
--- NOTE | 2021-12-25 13:55 | ST Dysphagia Evaluation ---
Speech Evaluation-General Medical Diagnosis HTN, Dementia, Fall, AMS Onset Date: Dec 17, 2021 Therapy Diagnosis Therapy Diagnosis: Suspected Mild Oropharyngeal Dysphagia Precautions Precautions: Fall, Aspiration Precautions/Isolations: Contact Isolation (MRSA), Aspiration, Fall Prevention Referral Referring Physician: Dr. Dueñas Reason for Referral: Evaluation/Treatment Medical History Current History The patient is an 86 year-old female past medical history of hypertension, dementia, neuropathy, who presented to the emergency department due to altered mental status after a fall. She is unable to tell me what brought her to the hospital. She was surprised that that she was sick and also seems surprised that she was in the hospital. Per ER note she was talking with the nurse and then 30 minutes later was found down by the staff at her [facility]. They were concerned that she had "word salad "and decided to bring her in for evaluation. On arrival to the emergency department she was objectively short of breath and was wheezing. She was also found to be febrile. She was placed on BiPAP due to her work of breathing. She was found to have likely pneumonia and was to be admitted to [facility] but after antibiotics became hypotensive and pressors were needed. She was admitted to the ICU. She remains on pressors at this time but reports feeling better and has no complaints. After further discussion though she does endorse a history of hacking cough for the past week. CXR: 12/24/21: 1. Stable cardiomegaly and diffuse interstitial opacities throughout the lungs compared to 12/22/2021. Reviewed History: Yes Speech PLF/Current-Dysphagia Prior Level of Function The patient was unable to report prior diet consistency level. At this time, the patient is receiving a dysphagia two consistency diet with thin liquids, as tolerated. Subjective The patient was lying in bed, awake and alert upon entrance to her room by the clinician. The patient greeted the clinician and was agreeable to participation in the clinical bedside swallowing evaluation. The patient was re-positioned with the aid of staff and was seated upright in bed for safe swallowing. The patient is receiving supplemental oxygen at a rate of 2 lpm with SpO2% at 97% and respirations at 19 bpm prior to PO intake. The patient remained pleasant and cooperative throughout the evaluation. Cognitive Status Patient Orientation: Confused Oral Motor Skills Dentition: Edentalous Current Food Consistancy: Dysphagia Soft, Thin Liquids Ability to Follow Directions: Fair Oral Expression Ability: Moderate Impairment Voice Voice Phonatory-Based Quality: Weak Voice Pitch: Normal Voice Loudness: Normal Oral-Facial Assessment Oral-Facial Dentition: Normal Labial Seal Description: Normal Lingual Protrusion: Normal Lingual ROM: Normal Lingual Strength: Normal Volitional Dry Swallow: Yes Voluntary Cough: Yes Dysphagia Evaluation Consistencies Presented: Thin Liquid, Mechanical Soft, Pureed The patient is able to appropriately accept all consistencies from a teaspoon or straw. One occasion of anterior spillage was appreciated with thin liquids via straw which appeared secondary to poor patient positioning. Once re-positioned, the anterior spillage did not occur. Appropriate posterior transfer of bolus material was present. Laryngeal elevation was present to palpation. The patient demonstrated an immediate, rigorous cough following the swallow with a soft solid. During the coughing period, the patient's SpO2% declined to 91% and her respirations increased to 40 bpm. Respirations and SpO2% returned to baseline following a per iod of rest. Additional s/s of suspected aspiration were not demonstrated. The patient does display increased respiratory effort and fatigue throughout PO trials. When trials were spaced with additional distance to allow for recovery, the increased effort was not exhibited. Dietary Recommendations: Clear L. Liquid Recommendations: Thin Please see below. Dysphagia Evaluation Summary The patient presented with mild suspected oropharyngeal dysphagia secondary to increased mastication time of soft solids, decreased lingual coordination, and poor airway protection in the presence of bolus consistency. The patient is at an elevated risk for aspiration due to her increased respiratory effort. Due to the patient's displayed fatigue, energy conservation will be considered by recommending the below diet consistency: Recommendations: - Clear liquid diet consistency (thin liquids), as tolerated. - FULLY upright and alert for PO intake. - Cease PO intake during periods of fatigue. - 1:1 supervision and meal set-up assistance. - Small, single bites and sips, only. - Crush medication and place in puree for administration. - Monitor for s/s of suspected aspiration with PO intake. If demonstrated, place the patient NPO and contact speech pathology. The clinician visited with the patient's RN and the patient immediately following completion of the swallow study. The patient denied questions for the clinician at this time. Speech Short Term Goals Short Term Goals Short Term Goals 1. The patient, family, and staff will follow safe swallowing strategies with 90% accuracy and mild clinician verbal and visual cueing. Time Frame-STG: Three Days. Speech Tightening Machine Operator Goals Assisted Goals 1. The patient will tolerate the least restrictive diet consistency without s/s of suspected aspiration. Time Frame: One Week. Speech-Plan Treatment Plan Speech Therapy Treatment Plan: Continue Plan of Care Treatment Duration: Jan 01, 2022 Frequency: 3 times per week Estimated Hrs Per Day: .25 hour per day Rehab Potential: Fair Pt/Family Agrees to Plan: Yes Safety Risks/Education Teaching Recipient: Patient Teaching Methods: Discussion Response to Teaching: Reinforcement Needed Education Topics Provided: Results, Recommendations, POC Time Speech Therapy Time In: 12:30 Speech Therapy Time Out: 13:04 Total Billed Time: 34 Billed Treatment Time 1, EDUARD MARC [facility] ST Dec 25, 2021 13:55
--- NOTE | 2021-12-25 14:03 | Physical Therapy Daily Note ---
PT Daily Note-Current Subjective Patient in bed pre tx, agrees to PT, has unrated pain in left leg. Nurse states that patient would probably be able to tolerate LE ROM but nothing else at this time. Appearance Patient in bed post tx with nurse call, phone, tray, all needs met, family in room. Mental Status Patient Orientation: Person Attachments: Oxygen, Fields Catheter, IV Transfers SCALE: Activities may be completed with or without assistive devices. 1-Qslzssngxh-eyejyta completes the activity by him/herself with no assistance from a helper. 5-Set-up or Clean-up Assistance-helper sets up or cleans up; patient completes activity. [place] assists only prior to or following the activity. 4-Supervision or Touching Assistance-helper provides verbal cues and/or touching/steadying and/or contact guard assistance as patient completes activity. Assistance may be provided throughout the activity or intermittently. 3-Partial/Moderate Assistance-helper does LESS THAN HALF the effort. [place] lifts, holds or supports trunk or limbs, but provides less than half the effort. 2-Substantial/Maximal Assistance-helper does MORE THAN HALF the effort. [place] lifts or holds trunk or limbs and provides more than half the effort. 1-Rgmxaztsd-zokzkd does ALL the effort. Patient does none of the effort to complete the activity. Or, the assistance of 2 or more helpers is required for the patient to complete the activity. If activity was not attempted, code reason: 7-Patient Refused. 9-Not Applicable-not attempted and the patient did not perform the activity before the current illness, exacerbation or injury. 10-Not Attempted due to Environmental Limitations-(lack of equipment, weather restraints, etc.). 88-Not Attempted due to Medical Conditions or Safety Concerns. Weight Bearing Right Lower Extremity: Right Weight Bearing/Tolerated Left Lower Extremity: Left Weight Bearing/Tolerated Exercises Supine Ex: Ankle pumps, Glut sets, Heel Slides, Short Arc Quads, Hip abd/add Supine Reps: 10 (AAROM) Treatments LE exercise Assessment Current Status: Poor Progress Patient has a lot of pain, especially in the left leg, can barely tolerate any movement of BLE. PT Improvement Auditor Goals Improvement Auditor Goals PT Improvement Auditor Goals Time Frame: Jan 11, 2022 Roll Left & Right (QC): 3 Sit to Lying (QC): 3 Lying-Sitting on Side/Bed(QC): 3 Sit to Stand (QC): 3 Chair/Hgg-in-Mjxbc Xfer(QC): 3 PT Plan Problem List Problem List: Activity Tolerance, Functional Strength, Safety, Balance, Gait, Transfer, Bed Mobility, ROM Treatment/Plan Treatment Plan: Continue Plan of Care Treatment Plan: Bed Mobility, Education, Functional Activity Ramiro, Functional Strength, Group Therapy, Safety, Therapeutic Exercise, Transfers Treatment Duration: Jan 18, 2022 Frequency: 5 times per week Estimated Hrs Per Day: .25 hour per day Patient and/or Family Agrees t: Yes Safety Risks/Education Patient Education: Correct Positioning, Safety Issues Teaching Recipient: Patient Teaching Methods: Demonstration, Discussion Response to Teaching: Reinforcement Needed Time/GCodes Time In: 1332 Time Out: 1343 Total Billed Treatment Time: 11 Total Billed Treatment 1 visit EX 11' DEBO ORTIZ PT Dec 25, 2021 14:03
[2021-12-25] MEDS: AMITRIPTYLINE 25 MG (ELAVIL) TAB PO SCH (16:00)
[2021-12-25] MEDS: PRAMIPEXOLE 0.5 MG TAB (MIRAPEX) PO SCH (16:00)
[2021-12-25] MEDS: DONEPEZIL 10 MG (ARICEPT) TAB PO SCH (16:00)
--- NOTE | 2021-12-25 16:51 | Progress Note - Hospitalist ---
Subjective HPI/CC On Admission Date Seen by Provider: Dec 25, 2021 Time Seen by Provider: 09:55 Patient is an 86-year-old female past medical history of hypertension, dementia, neuropathy who presented to the emergency department due to altered mental status after a fall. She is unable to tell me what brought her to the [facility]. She was surprised that that she was sick and also seems surprised that she was in the hospital. Per ER note she was talking with the nurse and then 30 minutes later was found down by the staff at her senior living. They were concerned that she had "word salad "and decided to bring her in for evaluation. On arrival to the emergency department she was objectively short of breath and was wheezing. She was also found to be febrile. She was placed on BiPAP due to her work of breathing. She was found to have likely pneumonia and was to be admitted to [facility] but after antibiotics became hypotensive and pressors were needed. She was admitted to the ICU. She remains on pressors at this time but reports feeling better and has no complaints. After further discussion though she does endorse a history of hacking cough for the past week. Subjective/Events-last exam She remains weak. She has not been out of bed. Her pain is improved. Her family is present and we discussed options including continued aggressive care and hospice. They have seen a significant decline in her function and her quality of life will decrease. They want to talk with Dee since they used them with their father. Focused Exam Time of Focused Exam: 01:00 Objective Exam Vital Signs Vital Signs Date Time Temp Pulse Resp B/P (MAP) Pulse Ox O2 Delivery O2 Flow Rate FiO2 12/25/21 15:00 107 19 126/65 95 Nasal Cannula 2.00 12/25/21 08:00 36.0 12/22/21 12:00 Capillary Refill : Less Than 3 Seconds General Appearance: No Apparent Distress, Obese Respiratory: Lungs Clear, No Respiratory Distress Cardiovascular: Irregularly Irregular, Tachycardia Gastrointestinal: Normal Bowel Sounds, Soft Extremity: Normal Inspection, Pedal Edema Neurologic/Psychiatric: Alert, Motor Weakness Results/Procedures Lab Laboratory Tests 12/25/21 03:15 Patient resulted labs reviewed. Imaging: Reviewed Imaging Report Assessment/Plan Assessment and Plan Assess & Plan/Chief Complaint A-fib with RVR Cardiomyopathy Elevated LFTs New onset Remains on Amiodarone gtt LFTs trending up Lovenox for stroke ppx Echo reveals EF of 30% Continue lasix Cardiology following Septic Shock due to pneumonia Acute respiratory failure NGTD on cultures Continue Cefepime Off pressors BiPAP HS and prn HTN Hold home BP meds for this Neuropathy Dementia Anxiety fibromyalgia Continue home meds Debility Super obesity PT/OT Goals of care discussion Palliative care consulted Talking with [facility] DVT ppx: Lovenox Critical Care Critically Ill Patient Diagnosis/Problems Diagnosis/Problems (1) Septic shock Status: Acute (2) PNA (pneumonia) Status: Acute (3) Atrial fibrillation with RVR Status: Acute (4) Super obesity Status: Chronic (5) Poor prognosis Status: Acute (6) Goals of care, counseling/discussion Status: Acute LOLA BAI MD Dec 25, 2021 16:51
[2021-12-26] MEDS: NOREPINEPHRINE 8 MG/250 ML 250 ML IV SCH (02:01)
[2021-12-26 04:31] LABS: BASOPHILS % (AUTO) 0 % (0-10); EOSINOPHILS # (AUTO) 0.1 10^3/uL (0.0-0.3); EOSINOPHILS % (AUTO) 1 % (0-10); HEMATOCRIT 28 % (35-52); HEMOGLOBIN 8.8 g/dL (11.5-16.0); LYMPHOCYTES # (AUTO) 3.3 10^3/uL (1.0-4.0); LYMPHOCYTES % (AUTO) 28 % (12-44); MEAN CORPUSCULAR HEMOGLOBIN 35 pg (25-34); MEAN CORPUSCULAR HGB CONC 32 g/dL (32-36); MEAN CORPUSCULAR VOLUME 108 fL (80-99); MEAN PLATELET VOLUME 10.5 fL (9.0-12.2); MONOCYTES # (AUTO) 0.6 10^3/uL (0.0-1.0); MONOCYTES % (AUTO) 5 % (0-12); NEUTROPHILS # (AUTO) 7.9 10^3/uL (1.8-7.8); NEUTROPHILS % (AUTO) 66 % (42-75); PLATELET COUNT 350 10^3/uL (130-400)
[2021-12-26 04:58] LABS: ALBUMIN 2.6 GM/DL (3.2-4.5); POTASSIUM 4.2 MMOL/L (3.6-5.0)
[2021-12-26 04:59] LABS: CALCIUM 9.4 MG/DL (8.5-10.1)
[2021-12-26 05:01] LABS: TOTAL PROTEIN 7.1 GM/DL (6.4-8.2)
[2021-12-26 05:03] LABS: BILIRUBIN,TOTAL 0.5 MG/DL (0.1-1.0)
[2021-12-26 05:04] LABS: CREATININE SERUM 0.84 MG/DL (0.60-1.30); PHOSPHORUS 2.6 MG/DL (2.3-4.7)
[2021-12-26 05:07] LABS: MAGNESIUM 1.6 MG/DL (1.6-2.4)
[2021-12-26] MEDS: POTASSIUM CL 10MEQ/50ML IVPB 50 ML IV SCH (05:14)
[2021-12-26] MEDS: KCL 20 MEQ TAB (K-DUR) PO SCH (05:14)
[2021-12-26] MEDS: MAGNESIUM 1 GM/100 ML IVPB 100 ML IV SCH ×2 (05:14→05:20)
[2021-12-26] MEDS: RT-ALBUTEROL/IPRATROPIUM 3 ML (DUONEB) VIAL INH SCH (06:56)
[2021-12-26 07:51] VITALS: BP 111/89
[2021-12-26] MEDS: AMIODARONE 200 MG (CORDARONE) TAB PO SCH ×2 (08:11→20:34)
[2021-12-26] MEDS: DOCUSATE SODIUM 100 MG (COLACE) CAP PO SCH ×2 (08:11→20:35)
[2021-12-26] MEDS: busPIRone 5 MG (BUSPAR) TAB PO SCH ×3 (08:11→20:34)
[2021-12-26] MEDS: CYCLOBENZAPRINE 10 MG (FLEXERIL) TAB PO SCH ×2 (08:11→17:25)
[2021-12-26] MEDS: PANTOPRAZOLE 40 MG (PROTONIX) TAB PO SCH (08:11)
[2021-12-26] MEDS: GABAPENTIN 300 MG (NEURONTIN) CAP PO SCH ×2 (08:12→17:25)
[2021-12-26] MEDS: DULoxetine 30 MG (CYMBALTA) CAP PO SCH (08:12)
[2021-12-26] MEDS: APIXABAN 5 MG (ELIQUIS) TABLET PO SCH ×2 (08:12→20:35)
[2021-12-26] MEDS: dilTIAZem DRIP PRE-MIX 125 ML IV SCH (09:30)
--- NOTE | 2021-12-26 10:01 | Tele-ICU Progress Note ---
Subjective Date Seen by a Provider: Dec 26, 2021 Time Seen by a Provider: 10:00 Subjective/Events-last exam (Tele-ICU Physician , Progress Note ) Available chart/ vitals / labs / Images reviewed Video assessment done using teleICU camera, rest of exam as per RN Discussed with RN , EXAM PER RN Events overnight : Afebrile FiO2 - 2l I/O = neg 500 Drips: Pressors: , hemodynamically stable Consultants: cards A/P 1. Possible sepsis with altered mental status some what improved 2. Hypotension , OFF levo 3. Morbid obesity contributing to her respiratory distress 4. Acute hypoxic respiratory failure secondary to pneumonia and sepsis , OFF BiPAP ventilation. 5. Anxiety disorder., OFF precedex 6. Super morbid obesity with underlying osteoarthritis causing unsteady gait. 7. new onset afib on amiodorone. 8. chf with reduced EF -oxygenate with n/c - IV antibiotics finished -Apixaban po. amiodorone per cardiology - speach eval - started on PO Lines : (Central Line Necessity Reviewed) Nutrition: Analgesia: Anxiety/ delirium VTE Prophylaxis: eliquis Stress Ulcer Prophylaxis: ppi Plans in collaboration with bedside consultants and IM MDs. Discussed with RN to reach out if any questions or concerns A total of 10 minutes of critical care time was devoted to this patient today, required to treat and/or prevent further deterioration of critical care condition ( as above) . Sepsis Event Evaluation Height, Weight, BMI Height: '" Weight: lbs. oz. kg; 51.61 BMI Method: Focused Exam Time of Focused Exam: 01:00 Exam Exam Patient acknowledged, consented, and participated in this virtual visit which was conducted using real time audio/video Vital Signs Date Time Temp Pulse Resp B/P (MAP) Pulse Ox O2 Delivery O2 Flow Rate FiO2 12/26/21 07:51 36.1 113 95 12/26/21 07:46 36.1 12/26/21 07:02 95 Nasal Cannula 2.00 12/26/21 07:00 109 12/26/21 06:00 113 20 111/89 94 Nasal Cannula 2.00 12/26/21 05:00 115 21 123/75 94 Nasal Cannula 2.00 12/26/21 04:00 99 19 86/79 96 Nasal Cannula 2.00 12/26/21 04:00 94 Nasal Cannula 2.00 12/26/21 03:23 36.6 Nasal Cannula 2.00 12/26/21 03:00 98 25 102/74 96 Nasal Cannula 2.00 12/26/21 02:00 99 28 109/76 94 Nasal Cannula 2.00 12/26/21 01:00 120 12/26/21 01:00 112 26 117/72 94 Nasal Cannula 2.00 12/26/21 00:00 110 24 114/91 95 Nasal Cannula 2.00 12/25/21 23:59 95 Nasal Cannula 2.00 12/25/21 23:31 36.4 Nasal Cannula 2.00 12/25/21 23:00 98 20 96/67 96 Nasal Cannula 2.00 12/25/21 22:00 105 18 91/66 95 Nasal Cannula 2.00 12/25/21 21:00 114 18 82/69 95 Nasal Cannula 2.00 12/25/21 20:07 94 Nasal Cannula 2.00 12/25/21 20:00 105 17 111/76 95 Nasal Cannula 2.00 12/25/21 19:53 36.6 Nasal Cannula 2.00 12/25/21 19:00 110 12/25/21 19:00 108 16 115/95 95 Nasal Cannula 2.00 12/25/21 18:44 95 Nasal Cannula 2.00 12/25/21 18:00 114 19 130/86 95 Nasal Cannula 2.00 12/25/21 17:00 101 27 113/95 95 Nasal Cannula 2.00 12/25/21 17:00 37.4 12/25/21 16:00 107 26 122/70 96 Nasal Cannula 2.00 12/25/21 16:00 94 Nasal Cannula 2.00 12/25/21 15:00 107 19 126/65 95 Nasal Cannula 2.00 12/25/21 14:00 111 28 139/114 Nasal Cannula 2.00 12/25/21 13:00 106 23 136/83 98 Nasal Cannula 2.00 12/25/21 12:50 105 12/25/21 12:00 94 Nasal Cannula 2.00 12/25/21 12:00 112 32 123/95 97 Nasal Cannula 2.00 12/25/21 11:00 105 29 119/110 96 Nasal Cannula 2.00 12/25/21 10:39 96 Nasal Cannula 2.00 I & O 12/26/21 07:00 Intake Total 440 ml Output Total 1350 ml Balance -910 ml Height & Weight Height: '" Weight: lbs. oz. kg; 51.61 BMI Method: General Appearance: No Apparent Distress, Obese HEENT: PERRL/EOMI, Moist Mucous Membranes; No Scleral Icterus (L), No Scleral Icterus (R) Neck: Normal Inspection, Supple Respiratory: Lungs Clear, No Respiratory Distress Cardiovascular: Irregularly Irregular, Tachycardia Capillary Refill: Less Than 3 Seconds Peripheral Pulses: 1+ Radial Pulses (R), 1+ Radial Pulses (L) Gastrointestinal: normal bowel sounds, non tender, soft Extremity: Normal Inspection, Pedal Edema Neurologic/Psychiatric: Alert, Motor Weakness Skin: Normal Color, Warm/Dry Results Lab Laboratory Tests 12/25/21 03:15 12/26/21 04:25 Assessment/Plan Assessment/Plan ` RAMY TANNER MD Dec 26, 2021 10:01
--- NOTE | 2021-12-26 11:22 | Cardiology Progress Note ---
Progress Note-Cardiology Events since last exam Date Seen by Provider: Dec 26, 2021 Time Seen by Provider: 11:20 Events since last exam I am following her due to heart failure and atrial fibrillation. She remains in the intensive care unit. The nurses are now crushing her medications and giving them to her orally. The family is thinking about whether or not to make her comfort care or home with hospice. She denies chest pain, dyspnea at rest, palpitations, syncope, or ankle edema. However, due to her confusion and dementia, her answers may not be reliable. Certain portions of this document may have been dictated utilizing voice recognition technology. Inherent to this technology, typographical and grammatical errors may exist. As much as I am diligent to identify and correct these mistakes, some errors may remain in the document. Vitals Last set of Vitals Signs Vital Signs 12/22/21 12/26/21 12/26/21 08:00 07:51 10:00 Temp 36.1 Pulse 95 Resp 12 B/P (MAP) 94/80 Pulse Ox 96 O2 Delivery Nasal Cannula O2 Flow Rate 2.00 FiO2 28 Labs Labs Laboratory Tests 12/26/21 04:25 Exam Vital Signs Vital Signs Date Time Temp Pulse Resp B/P (MAP) Pulse Ox O2 Delivery O2 Flow Rate FiO2 12/26/21 10:00 95 12 94/80 96 Nasal Cannula 2.00 12/26/21 07:51 36.1 12/22/21 12:00 Physical Exam General: She was sleeping but open her eyes to voice but she remains confused. No acute distress. She is obese. Eye: No xanthelasma. HENT: Normocephalic. Neck: Jugular venous pressure does not appear elevated. Respiratory: Lungs have coarse upper airway sounds versus rhonchi or both. Respirations are non-labored. Breath sounds are equal. Symmetrical chest wall expansion. Cardiovascular: Tachycardia with irregular rhythm. Distant S1/S2. No murmur. No gallop. 1+ bilateral pretibial edema. Gastrointestinal: Soft. Normal bowel sounds. Skin: Warm. Dry. Neurologic: Awake and oriented to person only. Cranial nerves 3-11 grossly intact. Psychiatric: Cooperative. Obvious short-term memory loss. Labs Laboratory Tests Test 12/26/21 04:25 Range/Units White Blood Count 12.0 H 4.3-11.0 10^3/uL Red Blood Count 2.55 L 3.80-5.11 10^6/uL Hemoglobin 8.8 L 11.5-16.0 g/dL Hematocrit 28 L 35-52 % Mean Corpuscular Volume 108 H 80-99 fL Mean Corpuscular Hemoglobin 35 H 25-34 pg Mean Corpuscular Hemoglobin Concent 32 32-36 g/dL Red Cell Distribution Width 14.9 H 10.0-14.5 % Platelet Count 350 130-400 10^3/uL Mean Platelet Volume 10.5 9.0-12.2 fL Immature Granulocyte % (Auto) 1 % Neutrophils (%) (Auto) 66 42-75 % Lymphocytes (%) (Auto) 28 12-44 % Monocytes (%) (Auto) 5 0-12 % Eosinophils (%) (Auto) 1 0-10 % Basophils (%) (Auto) 0 0-10 % Neutrophils # (Auto) 7.9 H 1.8-7.8 10^3/uL Lymphocytes # (Auto) 3.3 1.0-4.0 10^3/uL Monocytes # (Auto) 0.6 0.0-1.0 10^3/uL Eosinophils # (Auto) 0.1 0.0-0.3 10^3/uL Basophils # (Auto) 0.0 0.0-0.1 10^3/uL Immature Granulocyte # (Auto) 0.1 0.0-0.1 10^3/uL Sodium Level 134 L 135-145 MMOL/L Potassium Level 4.2 3.6-5.0 MMOL/L Chloride Level 98 98-107 MMOL/L Carbon Dioxide Level 26 21-32 MMOL/L Anion Gap 10 5-14 MMOL/L Blood Urea Nitrogen 21 H 7-18 MG/DL Creatinine 0.84 0.60-1.30 MG/DL Estimat Glomerular Filtration Rate 68 BUN/Creatinine Ratio 25 Glucose Level 89 70-105 MG/DL Calcium Level 9.4 8.5-10.1 MG/DL Corrected Calcium 10.5 H 8.5-10.1 MG/DL Phosphorus Level 2.6 2.3-4.7 MG/DL Magnesium Level 1.6 1.6-2.4 MG/DL Total Bilirubin 0.5 0.1-1.0 MG/DL Aspartate Amino Transf (AST/SGOT) 187 H 5-34 U/L Alanine Aminotransferase (ALT/SGPT) 94 H 0-55 U/L Alkaline Phosphatase 172 H 40-136 U/L Total Protein 7.1 6.4-8.2 GM/DL Albumin 2.6 L 3.2-4.5 GM/DL Diagnosis/Problems Diagnosis/Problems (1) Paroxysmal atrial fibrillation Assessment & Plan: She developed atrial fibrillation with a rapid ventricular rate while here in the hospital. I do not see any mention of atrial fibrillation in her previous hospital records although she does have mild biatrial enlargement which is suggestive of possible previous history of atrial fibrillation. She was given 1 dose of metoprolol succinate on 12/21 and another dose on 12/22. I had lowered the dose to low blood pressure. I started her on apixaban 5 mg twice daily on 12/22. Although she is over the age of 81, her weight is above 60 kg and creatinine below 1.5 and therefore, there is no indication to decrease the dose apixaban. I started her on oral amiodarone on 12/22 but she still has atrial fibrillation with intermittent rapid ventricular rates. The amiodarone infusion completed and now she is again taking oral amiodarone. Although the oral amiodarone has been ordered, she has intermittently been taking it due to trouble swallowing. If the family decides to continue aggressive treatment, I may consider cardioversion on 12/27. (2) Acute HFrEF (heart failure with reduced ejection fraction) Assessment & Plan: This appears to be a new finding in the patient. She was on a low-dose of oral furosemide at home. I changed this over to intravenous furosemide 40 mg daily on 12/21. The furosemide has now been discontinued. I started her on low-dose metoprolol succinate at this will need to be interm ittently held until her blood pressure improves. Due to her borderline low blood pressure and chronic kidney disease, I will hold off on adding any of the other guideline directed medications at this point in time. Her blood pressure has improved and renal function has been stable. Since the nurses have been crushing her pills, I changed metoprolol succinate over to carvedilol on 12/25. Metoprolol succinate cannot be crushed. (3) Cardiomyopathy Assessment & Plan: She had no previous echocardiogram in our system. Her echocardiogram from this admission shows moderate systolic dysfunction with an estimated ejection fraction of 30-35%. Exact etiology of the cardiomyopathy is unclear. Given her advanced age and dementia coupled with chronic kidney disease, she would not be an ideal candidate for an invasive ischemic evaluation. We will attempt to manage her with conservative medical therapy. I started her on guideline directed medical therapy as outlined above. However, this has intermittently been on hold due to low blood pressures and also difficulty swallowing. Given her advanced age and dementia, she would not be a good candidate for prophylactic defibrillator implantation and therefore, there would be no reason to prescribe a LifeVest. (4) Pulmonary hypertension Assessment & Plan: This is in a mild range on her echocardiogram. I suspect this may be related to the pneumonia and heart failure. (5) Primary hypertension Assessment & Plan: The medication reconciliation indicates that she may have been taking lisinopril and propranolol at home. I started her on metoprolol succinate due to the cardiomyopathy, atrial fibrillation and heart failure as outlined above. This has now been changed to carvedilol due to needing to crush her medications. If she tolerates this, then we could consider restarting low- dose JIM inhibitor. However, as above, she has been having difficulty swallowing pills and has also had low blood pressures. (6) Macrocytic anemia Assessment & Plan: I could not find any old laboratory results in our computer system. Unknown whether or not the anemia is an acute or chronic problem for the patient. This is not necessarily a contraindication to oral anticoagul ation. (7) Left bundle branch block Assessment & Plan: I did find an old electrocardiogram from a prior admission and the left bundle branch block appears to be chronic. (8) Acute respiratory failure with hypoxemia Assessment & Plan: Most likely due to the combination of pneumonia and heart failure. (9) Septic shock Status: Acute Assessment & Plan: She had required vasopressors earlier during her hospitalization and she has been developing recurrent shock requiring vasopressors. (10) Acute kidney injury superimposed on chronic kidney disease Assessment & Plan: I reviewed labs from January 2021 and at that time she had stage III chronic kidney disease. At the time of this admission her creatinine level was slightly higher but now seems to have gone back to its baseline. We will need to be cautious with any medication that could affect her kidney function. (11) Morbid obesity Assessment & Plan: I would suggest limiting her caloric intake. (12) Dementia Assessment & Plan: We need to keep this condition in mind when considering long-term treatment and goals. Problem Qualifiers (1) Dementia: Dementia type: unspecified type Dementia behavioral disturbance: without behavioral disturbance Qualified Codes: F03.90 - Unspecified dementia without behavioral disturbance LUCERO WHITE JR, MD Dec 26, 2021 11:22
--- NOTE | 2021-12-26 13:14 | Speech Therapy Daily Note ---
Speech Daily Progress Note Subjective Date Seen by Provider: Dec 26, 2021 Time Seen by Provider: 12:10 The patient was sleeping upon entrance to her room by the clinician. The patient's RN stated the patient had been asleep, however, did do well this morning with medication whole in puree, thin liquids, and scrambled eggs. The RN stated the patient displayed increased awareness around 0800, talking to the RN and displaying an appropriate swallow response. The patient does wake to a verbal greeting by the clinician but does continue drowsiness, requiring increased verbal prompting for continued participation and alertness. Objective The patient was provided thin liquids via teaspoon and straw, nectar-thick liquids via teaspoon and straw, and puree (x1). The patient demonstrated a rigorous cough with one of five teaspoons of thin liquid and one straw drinks of four straw drinks. Due to this, nectar-thick liquid trials were initiated. The patient did not display any s/s of suspected aspiration with teaspoons of nectar-thick liquid or straw drinks of nectar-thick liquid. Following, puree trials were attempted. The patient orally accepted one trial of puree with maximum clinician verbal prompting and encouragement. The patient required increased verbal prompting on this date to elicit a pharyngeal swallow, as oral holding behaviors were intermittently present. The clinician suspects the patient's fatigue may have negatively impacted her swallowing function, causing reduced awareness and reaction time of protective mechanism with thin liquids. As the patient may consume medication throughout periods of fatigue, the patient will be downgraded to nectar-thick liquids. Due to the patient's reduced participation, an upgrade in solid consistencies cannot be accomplished. Recommendations: - Clear liquid consistency, NECTAR-thick (mildly thick) liquid. - Fully upright and alert for PO intake. - Small, single bites and sips. - Full 1:1 supervision with PO intake. Verbal cues when needed to reduce oral holding. - Crush medication and place in puree for administration. - Monitor for s/s of suspected aspiration with PO intake. If demonstrated, contact speech pathology. The RN was provided the recommendations following completion. Assessment Assessment Current Status: Fair Progress Treatment Plan Continue Plan of Care Speech Short Term Goals Short Term Goals Short Term Goals 1. The patient, family, and staff will follow safe swallowing strategies with 90% accuracy and mild clinician verbal and visual cueing. Time Frame-STG: Three Days. Speech Road Freight Firer Goals [employer]r Goals 1. The patient will tolerate the least restrictive diet consistency without s/s of suspected aspiration. Time Frame: One Week. Speech-Plan Treatment Plan Speech Therapy Treatment Plan: Continue Plan of Care Treatment Duration: Jan 01, 2022 Frequency: 3 times per week Estimated Hrs Per Day: .25 hour per day Rehab Potential: Fair Safety Risks/Education Teaching Recipient: Patient Teaching Methods: Discussion Response to Teaching: Unable to Comprehend Education Topics Provided: Recommendations, Results Time Speech Therapy Time In: 12:10 Speech Therapy Time Out: 12:30 Total Billed Time: 20 Billed Treatment Time 1EDUARD YUE FULTON Dec 26, 2021 13:14
--- NOTE | 2021-12-26 13:41 | Physical Therapy Daily Note ---
PT Daily Note-Current Subjective Patient in bed pre tx, she mumbles and is very hard to understand but does say she doesn't have any pain. Appearance Patient in bed post tx with nurse call, phone, tray, all needs met, SCD's on, heel protectors on, bed alarm on. Mental Status Patient Orientation: Person, Confused, Mumbles Attachments: Oxygen, Fields Catheter Transfers SCALE: Activities may be completed with or without assistive devices. 6-Dybxvdeahz-kvfudkb completes the activity by him/herself with no assistance from a helper. 5-Set-up or Clean-up Assistance-helper sets up or cleans up; patient completes activity. [place] assists only prior to or following the activity. 4-Supervision or Touching Assistance-helper provides verbal cues and/or touching/steadying and/or contact guard assistance as patient completes activity. Assistance may be provided throughout the activity or intermittently. 3-Partial/Moderate Assistance-helper does LESS THAN HALF the effort. [place] lifts, holds or supports trunk or limbs, but provides less than half the effort. 2-Substantial/Maximal Assistance-helper does MORE THAN HALF the effort. [place] lifts or holds trunk or limbs and provides more than half the effort. 4-Luljvcpyq-czkmwg does ALL the effort. Patient does none of the effort to complete the activity. Or, the assistance of 2 or more helpers is required for the patient to complete the activity. If activity was not attempted, code reason: 7-Patient Refused. 9-Not Applicable-not attempted and the patient did not perform the activity before the current illness, exacerbation or injury. 10-Not Attempted due to Environmental Limitations-(lack of equipment, weather restraints, etc.). 88-Not Attempted due to Medical Conditions or Safety Concerns. Roll Left & Right (QC): 1 Lying to Sitting/Side of Bed(Q: 1 Attempted to sit but patient resists movement and almost immediately her O2 drops to 83%, comes back up after a minute or so to low 90's. Weight Bearing Right Lower Extremity: Right Weight Bearing/Tolerated Left Lower Extremity: Left Weight Bearing/Tolerated Exercises PROM BLE. Minimal movement because patient resists movement, she also groans with pain with even light touches to her legs. Treatments LE ROM Assessment Current Status: Poor Progress Patient resists movement, has little to no participation in LE ROM. PT Snf Goals Tankroom Tender Goals PT Tankroom Tender Goals Time Frame: Jan 11, 2022 Roll Left & Right (QC): 3 Sit to Lying (QC): 3 Lying-Sitting on Side/Bed(QC): 3 Sit to Stand (QC): 3 Chair/Ldu-ta-Xzyuy Xfer(QC): 3 PT Plan Problem List Problem List: Activity Tolerance, Functional Strength, Safety, Balance, Gait, Transfer, Bed Mobility, ROM Treatment/Plan Treatment Plan: Continue Plan of Care Treatment Plan: Bed Mobility, Education, Functional Activity Ramiro, Functional Strength, Group Therapy, Safety, Therapeutic Exercise, Transfers Treatment Duration: Jan 18, 2022 Frequency: 5 times per week Estimated Hrs Per Day: .25 hour per day Patient and/or Family Agrees t: Yes Safety Risks/Education Patient Education: Correct Positioning, Safety Issues Teaching Recipient: Patient Teaching Methods: Demonstration, Discussion Response to Teaching: Reinforcement Needed Time/GCodes Time In: 1312 Time Out: 1323 Total Billed Treatment Time: 11 Total Billed Treatment 1 visit EX DEBO KRAUSE PT Dec 26, 2021 13:41
[2021-12-26 16:09] VITALS: BP 126/84
[2021-12-26] MEDS: AMITRIPTYLINE 25 MG (ELAVIL) TAB PO SCH (17:25)
[2021-12-26] MEDS: DONEPEZIL 10 MG (ARICEPT) TAB PO SCH (17:25)
[2021-12-26] MEDS: PRAMIPEXOLE 0.5 MG TAB (MIRAPEX) PO SCH (17:25)
--- NOTE | 2021-12-26 17:36 | Progress Note - Hospitalist ---
Subjective HPI/CC On Admission Date Seen by Provider: Dec 26, 2021 Time Seen by Provider: 09:40 Patient is an 86-year-old female past medical history of hypertension, dementia, neuropathy who presented to the emergency department due to altered mental status after a fall. She is unable to tell me what brought her to the ostal. She was surprised that that she was sick and also seems surprised that she was in the hospital. Per ER note she was talking with the nurse and then 30 minutes later was found down by the staff at her group home. They were concerned that she had "word salad "and decided to bring her in for evaluation. On arrival to the emergency department she was objectively short of breath and was wheezing. She was also found to be febrile. She was placed on BiPAP due to her work of breathing. She was found to have likely pneumonia and was to be admitted to [facility] but after antibiotics became hypotensive and pressors were needed. She was admitted to the ICU. She remains on pressors at this time but reports feeling better and has no complaints. After further discussion though she does endorse a history of hacking cough for the past week. Subjective/Events-last exam She is sleeping on my arrival. She denies pain. She denies shortness of breath. Focused Exam Time of Focused Exam: 01:00 Objective Exam Vital Signs Vital Signs Date Time Temp Pulse Resp B/P (MAP) Pulse Ox O2 Delivery O2 Flow Rate FiO2 12/26/21 16:09 35.9 90 18 126/84 (98) 100 Nasal Cannula 2.00 12/22/21 12:00 Capillary Refill : Less Than 3 Seconds General Appearance: No Apparent Distress, Obese Respiratory: No Respiratory Distress, Decreased Breath Sounds Cardiovascular: Irregularly Irregular, Tachycardia Gastrointestinal: Normal Bowel Sounds, Soft Extremity: Normal Inspection, Pedal Edema Neurologic/Psychiatric: Alert, Motor Weakness Results/Procedures Lab Laboratory Tests 12/26/21 04:25 Patient resulted labs reviewed. Imaging: Reviewed Imaging Report Assessment/Plan Assessment and Plan Assess & Plan/Chief Complaint A-fib with RVR Cardiomyopathy Elevated LFTs New onset LFTs trending down Lovenox for stroke ppx Echo reveals EF of 30% Continue lasix Continue oral Amiodarone Cardiology following Septic Shock due to pneumonia Acute respiratory failure NGTD on cultures Continue Cefepime Off pressors BiPAP HS and prn Goals of care discussion Palliative care following Planning on discharge to [facility] tomorrow on [facility] HTN Hold home BP meds for this Neuropathy Dementia Anxiety fibromyalgia Continue home meds Debility Super obesity PT/OT DVT ppx: Lovenox Diagnosis/Problems Diagnosis/Problems (1) Septic shock Status: Acute (2) PNA (pneumonia) Status: Acute (3) Atrial fibrillation with RVR Status: Acute (4) Super obesity Status: Chronic (5) Poor prognosis Status: Acute (6) Goals of care, counseling/discussion Status: Acute LOLA BAI MD Dec 26, 2021 17:36
[2021-12-26 19:41] VITALS: BP 119/73
[2021-12-26 23:55] VITALS: BP 111/75
[2021-12-27] MEDS: RT-ALBUTEROL/IPRATROPIUM 3 ML (DUONEB) VIAL INH SCH ×2 (00:08→08:03)
[2021-12-27 03:50] VITALS: BP 138/64
[2021-12-27 06:38] LABS: BASOPHILS % (AUTO) 0 % (0-10); EOSINOPHILS # (AUTO) 0.1 10^3/uL (0.0-0.3); EOSINOPHILS % (AUTO) 1 % (0-10); HEMATOCRIT 28 % (35-52); LYMPHOCYTES # (AUTO) 2.6 10^3/uL (1.0-4.0); LYMPHOCYTES % (AUTO) 24 % (12-44); MEAN CORPUSCULAR HEMOGLOBIN 35 pg (25-34); MEAN CORPUSCULAR HGB CONC 32 g/dL (32-36); MEAN CORPUSCULAR VOLUME 109 fL (80-99); MEAN PLATELET VOLUME 10.5 fL (9.0-12.2); MONOCYTES # (AUTO) 0.4 10^3/uL (0.0-1.0); MONOCYTES % (AUTO) 3 % (0-12); NEUTROPHILS # (AUTO) 7.4 10^3/uL (1.8-7.8); NEUTROPHILS % (AUTO) 71 % (42-75); PLATELET COUNT 347 10^3/uL (130-400); WHITE BLOOD COUNT 10.5 10^3/uL (4.3-11.0)
[2021-12-27 06:43] LABS: ALBUMIN 2.4 GM/DL (3.2-4.5)
[2021-12-27 06:44] LABS: POTASSIUM 4.4 MMOL/L (3.6-5.0)
[2021-12-27 06:45] LABS: CALCIUM 9.1 MG/DL (8.5-10.1)
[2021-12-27 06:46] LABS: TOTAL PROTEIN 6.8 GM/DL (6.4-8.2)
[2021-12-27 06:48] LABS: BILIRUBIN,TOTAL 0.4 MG/DL (0.1-1.0)
[2021-12-27 06:50] LABS: CREATININE SERUM 0.79 MG/DL (0.60-1.30)
[2021-12-27] MEDS ORDERED: APIX5TAB PO (07:32)
[2021-12-27] MEDS ORDERED: CARV3.122 PO (07:32)
[2021-12-27] MEDS ORDERED: AMIO200T65 PO (07:32)
[2021-12-27 08:08] VITALS: BP 116/62
--- NOTE | 2021-12-27 08:27 | Cardiology Progress Note ---
Progress Note-Cardiology Events since last exam Date Seen by Provider: Dec 27, 2021 Time Seen by Provider: 08:26 Events since last exam I am following her due to atrial fibrillation and acute heart failure with re duced ejection fraction. Her nurse tells me that she may be transferred to [facility] with hospice later today. She still has back pain. She denies chest pain, dyspnea at rest, stations, or syncope. She has minimal lower extremity edema. However, her answers may not be reliable due to her memory loss. Certain portions of this document may have been dictated utilizing voice recognition technology. Inherent to this technology, typographical and grammatical errors may exist. As much as I am diligent to identify and correct these mistakes, some errors may remain in the document. Vitals Last set of Vitals Signs Vital Signs 12/22/21 12/27/21 08:00 08:08 Temp 36.3 Pulse 102 Resp 20 B/P (MAP) 116/62 (80) Pulse Ox 96 O2 Delivery Nasal Cannula O2 Flow Rate 2.00 FiO2 28 Labs Labs Laboratory Tests 12/27/21 06:18 Exam Vital Signs Vital Signs Date Time Temp Pulse Resp B/P (MAP) Pulse Ox O2 Delivery O2 Flow Rate FiO2 12/27/21 08:08 36.3 102 20 116/62 (80) 96 Nasal Cannula 2.00 12/22/21 12:00 Physical Exam General: She was sitting up in bed getting ready to eat breakfast. No acute distress. She is obese. Eye: No xanthelasma. HENT: Normocephalic. Neck: Jugular venous pressure does not appear elevated. Respiratory: Lungs have coarse upper airway sounds versus rhonchi or both. Respirations are non-labored. Breath sounds are equal. Symmetrical chest wall expansion. Cardiovascular: Tachycardia with irregular rhythm. Distant S1/S2. No murmur. No gallop. 1+ bilateral pretibial edema. Gastrointestinal: Soft. Normal bowel sounds. Skin: Warm. Dry. Neurologic: Awake and oriented to person only. Cranial nerves 3-11 grossly intact. Psychiatric: Cooperative. Obvious short-term memory loss. Labs Laboratory Tests Test 12/27/21 06:18 Range/Units White Blood Count 10.5 4.3-11.0 10^3/uL Red Blood Count 2.56 L 3.80-5.11 10^6/uL Hemoglobin 9.0 L 11.5-16.0 g/dL Hematocrit 28 L 35-52 % Mean Corpuscular Volume 109 H 80-99 fL Mean Corpuscular Hemoglobin 35 H 25-34 pg Mean Corpuscular Hemoglobin Concent 32 32-36 g/dL Red Cell Distribution Width 14.9 H 10.0-14.5 % Platelet Count 347 130-400 10^3/uL Mean Platelet Volume 10.5 9.0-12.2 fL Immature Granulocyte % (Auto) 1 % Neutrophils (%) (Auto) 71 42-75 % Lymphocytes (%) (Auto) 24 12-44 % Monocytes (%) (Auto) 3 0-12 % Eosinophils (%) (Auto) 1 0-10 % Basophils (%) (Auto) 0 0-10 % Neutrophils # (Auto) 7.4 1.8-7.8 10^3/uL Lymphocytes # (Auto) 2.6 1.0-4.0 10^3/uL Monocytes # (Auto) 0.4 0.0-1.0 10^3/uL Eosinophils # (Auto) 0.1 0.0-0.3 10^3/uL Basophils # (Auto) 0.0 0.0-0.1 10^3/uL Immature Granulocyte # (Auto) 0.1 0.0-0.1 10^3/uL Sodium Level 133 L 135-145 MMOL/L Potassium Level 4.4 3.6-5.0 MMOL/L Chloride Level 97 L 98-107 MMOL/L Carbon Dioxide Level 26 21-32 MMOL/L Anion Gap 10 5-14 MMOL/L Blood Urea Nitrogen 22 H 7-18 MG/DL Creatinine 0.79 0.60-1.30 MG/DL Estimat Glomerular Filtration Rate 73 BUN/Creatinine Ratio 28 Glucose Level 84 70-105 MG/DL Calcium Level 9.1 8.5-10.1 MG/DL Corrected Calcium 10.4 H 8.5-10.1 MG/DL Total Bilirubin 0.4 0.1-1.0 MG/DL Aspartate Amino Transf (AST/SGOT) 93 H 5-34 U/L Alanine Aminotransferase (ALT/SGPT) 71 H 0-55 U/L Alkaline Phosphatase 173 H 40-136 U/L Total Protein 6.8 6.4-8.2 GM/DL Albumin 2.4 L 3.2-4.5 GM/DL Diagnosis/Problems Diagnosis/Problems (1) Paroxysmal atrial fibrillation Assessment & Plan: She developed atrial fibrillation with a rapid ventricular rate while here in the hospital. I do not see any mention of atrial fibrillation in her previous hospital records although she does have mild biatrial enlargement which is suggestive of possible previous history of atrial fibrillation. She was given 1 dose of metoprolol succinate on 12/21 and another dose on 12/22. I had lowered the dose to low blood pressure. I started her on apixaban 5 mg twice daily on 12/22. Although she is over the age of 81, her katina ght is above 60 kg and creatinine below 1.5 and therefore, there is no indication to decrease the dose apixaban. I started her on oral amiodarone on 12/22 but she still has atrial fibrillation with intermittent rapid ventricular rates. The amiodarone infusion completed and now she is again taking oral amiodarone. Although the oral amiodarone has been ordered, she has intermittently been taking it due to trouble swallowing. States she may be [facility] with [facility], I will hold off on a cardioversion. She can 100 mg twice daily and apixaban unless the family wants to stop all medications. (2) Acute HFrEF (heart failure with reduced ejection fraction) Assessment & Plan: This appears to be a new finding in the patient. She was on a low-dose of oral furosemide at home. I changed this over to intravenous furosemide 40 mg daily on 12/21. The furosemide has now been discontinued. I started her on low-dose metoprolol succinate but since her pills need to be crushed, I changed this over to carvedilol on 12/25. Due to her borderline low blood pressure and chronic kidney disease, I will hold off on adding any of the other guideline directed medications at this point in time. I will restart low- dose oral furosemide which she was taking at home. This may help her breathe a little more comfortably when she is discharged. (3) Cardiomyopathy Assessment & Plan: She had no previous echocardiogram in our system. Her echocardiogram from this admission shows moderate systolic dysfunction with an estimated ejection fraction of 30-35%. Exact etiology of the cardiomyopathy is unclear. Given her advanced age and dementia coupled with chronic kidney disease, she would not be an ideal candidate for an invasive ischemic evaluation. We will attempt to manage her with conservative medical therapy. I started her on guideline directed medical therapy as outlined above. However, this has intermittently been on hold due to low blood pressures and also difficulty swallowing. Given her advanced age and dementia, she would not be a good candidate for prophylactic defibrillator implantation and therefore, there would be no reason to prescribe a LifeVest. (4) Primary hypertension Assessment & Plan: The medication reconciliation indicates that she may have been taking lisinopril and propranolol at home. I started her on metoprolol suc cinate due to the cardiomyopathy, atrial fibrillation and heart failure as outlined above. This has now been changed to carvedilol due to needing to crush her medications. If she tolerates this, then we could consider restarting low- dose JIM inhibitor. However, as above, she has been having difficulty swallowing pills and has also had low blood pressures. (5) Pulmonary hypertension Assessment & Plan: This is in a mild range on her echocardiogram. I suspect this may be related to the pneumonia and heart failure. (6) Macrocytic anemia Assessment & Plan: I could not find any old laboratory results in our computer system. Unknown whether or not the anemia is an acute or chronic problem for the patient. This is not necessarily a contraindication to oral anticoagulation. (7) Left bundle branch block Assessment & Plan: I did find an old electrocardiogram from a prior admission and the left bundle branch block appears to be chronic. (8) Acute respiratory failure with hypoxemia Assessment & Plan: Most likely due to the combination of pneumonia and heart failure. (9) Septic shock Status: Acute Assessment & Plan: She had required vasopressors earlier during her hospitalization and this seems to have resolved. (10) Acute kidney injury superimposed on chronic kidney disease Assessment & Plan: I reviewed labs from January 2021 and at that time she had stage III chronic kidney disease. At the time of this admission her creatinine level was slightly higher but now seems to have gone back to its baseline. We will need to be cautious with any medication that could affect her kidney function. (11) Morbid obesity Assessment & Plan: I would suggest limiting her caloric intake. (12) Dementia Assessment & Plan: We need to keep this condition in mind when considering long-term treatment and goals. Problem Qualifiers (1) Dementia: Dementia type: unspecified type Dementia behavioral disturbance: without behavioral disturbance Qualified Codes: F03.90 - Unspecified dementia without behavioral disturbance LUCERO WHITE JR, MD Dec 27, 2021 08:27
[2021-12-27] MEDS: GABAPENTIN 300 MG (NEURONTIN) CAP PO SCH (08:56)
[2021-12-27] MEDS: DULoxetine 30 MG (CYMBALTA) CAP PO SCH (08:56)
[2021-12-27] MEDS: PANTOPRAZOLE 40 MG (PROTONIX) TAB PO SCH (08:56)
[2021-12-27] MEDS: APIXABAN 5 MG (ELIQUIS) TABLET PO SCH (08:56)
[2021-12-27] MEDS: DOCUSATE SODIUM 100 MG (COLACE) CAP PO SCH (08:56)
[2021-12-27] MEDS: CYCLOBENZAPRINE 10 MG (FLEXERIL) TAB PO SCH (08:56)
[2021-12-27] MEDS: busPIRone 5 MG (BUSPAR) TAB PO SCH (08:56)
[2021-12-27] MEDS: AMIODARONE 200 MG (CORDARONE) TAB PO SCH (08:57)
[2021-12-27] MEDS ORDERED: FUROSEMIDE 20 MG (LASIX) TAB PO ONE (09:15)
--- NOTE | 2021-12-27 10:54 | Speech Therapy Daily Note ---
Speech Daily Progress Note Subjective Date Seen by Provider: Dec 27, 2021 Time Seen by Provider: 08:20 The patient was seated upright in bed, awake and alert upon entrance to her room by the clinician. The patient greeted the clinician appropriately and was agreeable to participation in the dysphagia treatment session. The patient remains confused at this time. Objective The patient was provided six ounces of thin liquid via teaspoon and straw, four ounces of nectar-thick liquid via straw, and six ounces of puree. The patient did not display s/s of suspected aspiration with any consistency tested. The patient's vocal quality remained clear following each swallow. Recommendations: - Dysphagia one (pureed) consistency diet with thin liquids, as tolerated. - Fully upright and alert for PO intake. - Small, single bites and sips, only. - Supervision with PO intake and meal set-up assistance, as necessary. - Cease PO intake during periods of respiratory fatigue. - Monitor for s/s of suspected aspiration with PO intake. If demonstrated, contact speech pathology. The clinician suspects the patient's difficulty with thin liquid consistencies during the prior session may have been secondary to fatigue. If the patient does not display alertness, PO intake should not be attempted. The results and recommendations were discussed with the patient and the patient's RN following the treatment session. Assessment Assessment Current Status: Good Progress Treatment Plan Continue Plan of Care Speech Short Term Goals Short Term Goals Short Term Goals 1. The patient, family, and staff will follow safe swallowing strategies with 90% accuracy and mild clinician verbal and visual cueing. Time Frame-STG: Three Days. Speech Sap Bw Developer Goals Sap Bw Developer Goals 1. The patient will tolerate the least restrictive diet consistency without s/s of suspected aspiration. Time Frame: One Week. Speech-Plan Treatment Plan Speech Therapy Treatment Plan: Continue Plan of Care Treatment Duration: Jan 07, 2022 Frequency: 3 times per week Estimated Hrs Per Day: .25 hour per day Rehab Potential: Fair Safety Risks/Education Teaching Recipient: Patient Teaching Methods: Discussion Response to Teaching: Reinforcement Needed Education Topics Provided: Results, Recommendations, Plan of Care Time Speech Therapy Time In: 08:20 Speech Therapy Time Out: 08:37 Total Billed Time: 17 Billed Treatment Time EDUARD Aj DONALDO,YUE SPIVEY Dec 27, 2021 10:54
[2021-12-27] MEDS ORDERED: FURO20TA4 PO (11:18)
[2021-12-27 11:23] VITALS: BP 110/72
[2021-12-27 13:55] VITALS: BP 110/72
--- NOTE | 2021-12-27 20:20 | Discharge Summary ---
Discharge Summary Hospital Course Problems/Dx: (1) Septic shock Status: Acute (2) PNA (pneumonia) Status: Acute (3) Paroxysmal atrial fibrillation Status: Acute (4) Acute HFrEF (heart failure with reduced ejection fraction) Status: Acute (5) Cardiomyopathy Status: Acute (6) Primary hypertension Status: Acute (7) Pulmonary hypertension Status: Acute (8) Macrocytic anemia Status: Acute (9) Left bundle branch block Status: Acute (10) Acute respiratory failure with hypoxemia Status: Acute (11) Acute kidney injury superimposed on chronic kidney disease Status: Acute (12) Morbid obesity Status: Acute (13) Dementia Status: Acute Qualifiers: Qualified Codes: F03.90 - Unspecified dementia without behavioral disturbance Hospital Course Date of Admission: Dec 18, 2021 at 01:55 Admission Diagnosis: Septic shock due to pneumonia Family Physician/Provider: Mello Meza MD Date of Discharge: 12/27/21 Discharge Diagnosis: Septic shock due to pneumonia, AFib with RVR, debility Hospital Course: Xiao Charles is an 86 year old female with multiple medical comorbidities who was admitted with septic shock due to pneumonia. She was admitted to the ICU initially requiring BiPAP and pressor support. Her course was complicated by AFib with RVR. Cardiology was consulted and assisted with her care. Her AFib was difficult to control and she was ultimately started on Amiodarone. Due to her prolonged hospitalization, she was severely debilitated. With her decreased qual ity of life, her family elected to put her on hospice with [facility]. [facility] in fair condition. Labs and Pending Lab Test: Laboratory Tests 12/27/21 06:18: White Blood Count 10.5, Red Blood Count 2.56L, Hemoglobin 9.0L, Hematocrit 28L, Mean Corpuscular Volume 109H, Mean Corpuscular Hemoglobin 35H, Mean Corpuscular Hemoglobin Concent 32, Red Cell Distribution Width 14.9H, Platelet Count 347, Mean Platelet Volume 10.5, Immature Granulocyte % (Auto) 1, Neutrophils (%) (Auto) 71, Lymphocytes (%) (Auto) 24, Monocytes (%) (Auto) 3, Eosinophils (%) (Auto) 1, Basophils (%) (Auto) 0, Neutrophils # (Auto) 7.4, Lymphocytes # (Auto) 2.6, Monocytes # (Auto) 0.4, Eosinophils # (Auto) 0.1, Basophils # (Auto) 0.0, Immature Granulocyte # (Auto) 0.1, Sodium Level 133L, Potassium Level 4.4, Chloride Level 97L, Carbon Dioxide Level 26, Anion Gap 10, Blood Urea Nitrogen 22H, Creatinine 0.79, Estimat Glomerular Filtration Rate 73, BUN/Creatinine Ratio 28, Glucose Level 84, Calcium Level 9.1, Corrected Calcium 10.4H, Total Bilirubin 0.4, Aspartate Amino Transf (AST/SGOT) 93H, Alanine Aminotransferase (ALT/SGPT) 71H, Alkaline Phosphatase 173H, Total Protein 6.8, Albumin 2.4L Microbiology 12/18/21 MRSA Screen - Final, Complete 12/17/21 Urine Culture - Final, Complete Gram Pos Mixed Bacterial Gillian 12/17/21 Blood Culture - Final, Complete No growth Home Meds Active Furosemide 20 Mg Tablet 20 Mg PO DAILY 30 Days Carvedilol 3.125 Mg Tablet 3.125 Mg PO BID 30 Days Amiodarone HCl 200 Mg Tablet 400 Mg PO BID 30 Days Eliquis (Apixaban) 5 Mg Tablet 5 Mg PO BID 30 Days Reported Oxycodone HCl 5 Mg Tablet 5 Mg PO Q6H PRN Milk of Magnesia (Magnesium Hydroxide) 2,400 Mg/10 Ml Oral.susp 30 Ml PO DAILY PRN Lidocaine 5% Patch (Lidocaine) 5 % Adh..patch 1 Each TP Q12H PRN MDD 2 APPLY TO LOWER BACK Biofreeze (Menthol) 4 % Gel..ml. 1 Applic TP Q6H PRN APPLY TO RIGHT HIP/BUTTOCK Tylenol Extra Strength (Acetaminophen) 500 Mg Tablet 500 Mg PO 0600,1000,1400,1800 Buspirone HCl 5 Mg Tablet 5 Mg PO TID Neurontin (Gabapentin) 300 Mg Capsule 300 Mg PO 0800,1700 Cyclobenzaprine HCl 10 Mg Tablet 10 Mg PO 0800,1700 Docusate Sodium 100 Mg Capsule 100 Mg PO BID Pantoprazole Sodium 40 Mg Tablet.dr 40 Mg PO DAILY Pramipexole Dihydrochloride (Pramipexole Di-HCl) 0.5 Mg Tablet 0.5 Mg PO 1700 Meloxicam 15 Mg Tablet 15 Mg PO DAILY Magnesium (Magnesium Oxide) 400 Mg Magnesium Tablet 400 Mg PO DAILY Duloxetine HCl 60 Mg Capsule.dr 60 Mg PO DAILY Donepezil HCl 10 Mg Tablet 10 Mg PO 1700 Amitriptyline HCl 100 Mg Tablet 100 Mg PO 1700 Assessment/Pt Instructions See instructions Discharge Planning: >30 minutes discharge planning Discharge Instructions Discharge Diet: Low Sodium Diet Activity as Tolerated: Yes Consultations Cardiology Discharge Physical Examination Vital Signs Vital Signs Date Time Temp Pulse Resp B/P (MAP) Pulse Ox O2 Delivery O2 Flow Rate FiO2 12/27/21 13:55 36.2 68 20 110/72 95 Nasal Cannula 2.00 12/22/21 12:00 General Appearance: No Apparent Distress, Chronically ill, Obese Respiratory: No Respiratory Distress, Decreased Breath Sounds Cardiovascular: No Murmur, Irregularly Irregular Gastrointestinal: Normal Bowel Sounds, Soft Neurologic/Psychiatric: Alert, Normal Mood/Affect, Disoriented Allergies: Coded Allergies: Penicillins (Verified Allergy, Unknown, 12/18/21) Discharge Summary Date of Admission Dec 18, 2021 at 01:55 Date of Discharge Dec 27, 2021 at 13:55 Discharge Date: Dec 27, 2021 Discharge Time: 1400 Admission Diagnosis Septic Shock Consults/Procedures Consulations Cardiology Discharge Diagnosis A-fib with RVR Septic Shock due to pneumonia Acute respiratory failure Dementia Debility Super obesity (1) Septic shock Status: Acute (2) PNA (pneumonia) Status: Acute (3) Paroxysmal atrial fibrillation Status: Acute (4) Acute HFrEF (heart failure with reduced ejection fraction) Status: Acute (5) Cardiomyopathy Status: Acute (6) Primary hypertension Status: Acute (7) Pulmonary hypertension Status: Acute (8) Macrocytic anemia Status: Acute (9) Left bundle branch block Status: Acute (10) Acute respiratory failure with hypoxemia Status: Acute (11) Acute kidney injury superimposed on chronic kidney disease Status: Acute (12) Morbid obesity Status: Acute (13) Dementia Status: Acute Qualifiers: Qualified Codes: F03.90 - Unspecified dementia without behavioral disturbance LOLA BAI MD Dec 27, 2021 20:17
[2021-12-28] MEDS ORDERED: FUROSEMIDE 20 MG (LASIX) TAB PO SCH (09:00)
== END 2021-12-27 13:55 | DRG 871 ==
LOC: EDUNIT# 22:11 → ER 22:12 → ICU 12-18 01:55 → 4TH 12-26 14:38
PROVIDERS: ADMIT Internal Medicine; ATTEND Internal Medicine
PROC: 5A09357 Assistance with Respiratory Ventilation, Less than 24 Consecutive Hours, Continuous Positive Airway Pressure (ICD-10-PCS; principal; 2021-12-18)
DX: A41.9 Sepsis, unspecified organism (principal); I50.21 Acute systolic (congestive) heart failure; J18.9 Pneumonia, unspecified organism; R65.21 Severe sepsis with septic shock; J96.01 Acute respiratory failure with hypoxia; I42.9 Cardiomyopathy, unspecified; I13.0 Hypertensive heart and chronic kidney disease with heart failure and stage 1 through stage 4 chronic kidney disease, or unspecified chronic kidney disease; N17.9 Acute kidney failure, unspecified; Z68.43 Body mass index [BMI] 50.0-59.9, adult; I48.0 Paroxysmal atrial fibrillation; I27.20 Pulmonary hypertension, unspecified; D64.9 Anemia, unspecified; I44.7 Left bundle-branch block, unspecified; E66.01 Morbid (severe) obesity due to excess calories; F03.90 Unspecified dementia, unspecified severity, without behavioral disturbance, psychotic disturbance, mood disturbance, and anxiety; R53.81 Other malaise; Z20.822 Contact with and (suspected) exposure to COVID-19; Z66 Do not resuscitate; N18.9 Chronic kidney disease, unspecified; G62.9 Polyneuropathy, unspecified; F41.9 Anxiety disorder, unspecified; I95.9 Hypotension, unspecified; M79.7 Fibromyalgia; Z51.5 Encounter for palliative care
CPT/HCPCS: 36415; 36569; 51702; 70450; 71045; 76937; 80053; 80061; 81000; 82805; 83605; 83735; 83880; 84100; 84443; 85007; 85025; 85027; 85610; 85730; 87040; 87081; 87088; 87636; 93005; 93306; 94640; 94660; 94760; 96361; 96365; 96367; 96375; 99291